=== PATIENT | female | born 1980 | race Two or more races ===

== ENCOUNTER 2020-05-03 22:44 | Emergency (ER) | payer OTHER, SELFPAY ==
[2020-05-03 22:56] VITALS: BP 127/90; BP 132/80; PULSE 61; PULSE 85; RESP 16; TEMP 36.8; O2SAT 100; O2SAT 95; BMI 25.8
--- NOTE | 2020-05-03 23:00 | ECG_ITS ---
Test Reason : WEAKNESS Blood Pressure : / mmHG Vent. Rate : 078 BPM Atrial Rate : 078 BPM P-R Int : 154 ms QRS Dur : 080 ms QT Int : 366 ms P-R-T Axes : 043 045 024 degrees QTc Int : 417 ms Normal sinus rhythm with sinus arrhythmia Nonspecfic T wave changes When compared with ECG of 19-NOV-2017 05:10, No significant change was found Referred By: Noelle Enriquez Electronically Signed By:Girma Dutta
--- NOTE | 2020-05-03 23:23 | ED.GENADULT ---
HPI - General Adult General Chief complaint: ETOH/Substance Use Stated complaint: ETOH Time Seen by Provider: 05/03/20 22:57 Source: patient Mode of arrival: EMS History of Present Illness HPI narrative: This is a 39-year-old female who was found walking on the streets and felt to be altered and was brought into the emergency department for further evaluation. Patient states that she went to court for her brother today and says that she drank alcohol and smoked some Timothy dust with marijuana and is requesting help with avoiding these substances in the future. She denies having been in prior detox programs and denies any feelings of depression or suicidal ideation. Related Data Allergies Allergy/AdvReac Type Severity Reaction Status Date / Time No Known Allergies Allergy Verified 05/03/20 22:56 [No Known Allergies*] Review of Systems Review of Systems: Pertinent positives and negatives as stated in HPI 10 point review of systems is otherwise negative. PMFSH Past Medical History Source: nursing notes reviewed Social History Social History Advance Directives: No Advance Directives Information Provided: No Physical Exam Vital Signs: Vital Signs: Last Vital Signs Temp 98.3 F 05/03/20 22:56 Pulse 88 05/04/20 01:42 Resp 15 05/04/20 01:42 BP 104/72 05/04/20 01:42 Pulse Ox 99 05/04/20 01:42 Body Mass Index 25.8 VITAL SIGNS: Reviewed. GENERAL: Well developed, well nourished, tearful. HEAD: Normocephalic/atraumatic, EYES: PERRLA, EOMI NOSE: Nares patent bilateral OROPHARYNX: no oral lesions noted, posterior pharynx clear NECK: Supple, no adenopathy LUNGS: Normal breath sounds. No adventitious sounds or accessory muscle use. SpO2<100> CARDIOVASCULAR: Regular rate and rhythm without noted murmurs ABDOMEN: Soft, non-tender, non-distended with bowel sounds. NEUROLOGIC: Alert and oriented x 4. Strength and sensation to light touch were grossly intact x 4 PSYCH: tearful, normal affect. Course Course Course Narrative: This is a 39-year-old female with history and clinical presentation consistent with substance use and requesting detox without evidence of depression or suicidal/homicidal ideation. Review of all investigations other than positivity for self endorsed PCP use. CARE team spoke with the patient directly and provided some outpatient resources as well as therapy options in the outpatient setting that patient could follow up with. Patient is requesting to be discharged home and has a safe ride as well as the resources provided by the CARE team. Medical Decision Making Lab Data Result diagrams: 05/04/20 00:33 05/04/20 00:33 Labs: Lab Results 05/04/20 05/04/20 Range/Units 00:33 00:33 WBC 11.9 H (4.8-10.8) X10*3/uL RBC 4.53 (4.20-5.50) X10*6/uL Hgb 13.6 (12.0-16.0) g/dl Hct 41.1 (37-47) % MCV 90.7 (80-98) fL MCH 30.0 (27.0-33.0) pg MCHC 33.1 (31.0-35.0) g/dl RDW 13.7 (11.0-16.0) % Plt Count 382 (160-400) X10*3/uL MPV 9.5 (9.4-12.3) fL Immature Gran % (Auto) 0.3 (0.0-0.4) % Neut % (Auto) 68.2 (45-73) % Lymph % (Auto) 26.7 (20-40) % Ashley % (Auto) 4.1 (2-11) % Eos % (Auto) 0.2 (0-4) % Baso % (Auto) 0.5 (0-2) % Lymph # (Auto) 3.2 (1.2-4.9) X10*3/uL Ashley # (Auto) 0.5 (0.1-1.2) X10*3/uL Eos # (Auto) 0.0 (0.0-0.4) X10*3/uL Baso # (Auto) 0.1 (0.0-0.2) X10*3/uL Abs Immat Gran (auto) 0.03 (0.00-0.03) X10*3/uL Absolute Neuts (auto) 8.1 (2.0-8.3) X10*3/uL Absolute Nucleated RBC 0.000 (0.0-0.012) X10*3/uL Nucleated RBC % (auto) 0.0 (0.0-0.2) /100WBC Sodium 144 (135-145) mmol/L Potassium 3.7 (3.3-5.1) mmol/L Chloride 107 (96-108) mmol/L Carbon Dioxide 24 (22-29) mmol/L Anion Gap 17 (12-20) BUN 13 (9-16) mg/dL Creatinine 0.79 (0.5-1.4) mg/dL Estim Creat Clear Calc 99.4 Estimated GFR > 60 Random Glucose 87 (60-115) mg/dL Calcium 9.4 (8.4-10.2) mg/dL Total Bilirubin 0.8 (0.0-1.0) mg/dL AST 46 H (5-31) U/L ALT 26 (0-31) U/L Alkaline Phosphatase 90 (39-117) U/L Total Protein 8.2 H (6.5-8.0) g/dL Albumin 4.8 (3.5-5.0) g/dL Discharge Plan Discharge Clinical Impression: Substance abuse Patient Disposition: Home, Self-Care Instructions: Polysubstance Abuse (ED) Additional Instructions: Please utilize the resources that you have been provided to facilitate your request for detox. Please do not hesitate to return to the emergency department should you would have feelings of depression, suicidal ideation, or medical conditions such as shortness of breath/chest pain/fevers or chills that are not resolving with [id number] Tylenol or ibuprofen. Referrals: Physician,Unknown [Primary Care Provider] - 2 days
[2020-05-04 00:40] LABS: MANUAL DIFF FLAG NO
[2020-05-04 00:46] LABS: Basophils Absolute Auto 0.1 X10*3/uL (0.0-0.2); Basophils Percent Auto 0.5 % (0-2); Eosinophils Percent Auto 0.2 % (0-4); Hematocrit 41.1 % (37-47); Hemoglobin 13.6 g/dl (12.0-16.0); Imm Gran Abs Auto 0.03 X10*3/uL (0.00-0.03); Imm Gran Pct Auto 0.3 % (0.0-0.4); Lymphocytes Absolute Auto 3.2 X10*3/uL (1.2-4.9); Lymphocytes Percent Auto 26.7 % (20-40); Mean Corpuscular HGB Conc 33.1 g/dl (31.0-35.0); Mean Corpuscular Volume 90.7 fL (80-98); Mean Platelet Volume 9.5 fL (9.4-12.3); Monocytes Absolute Auto 0.5 X10*3/uL (0.1-1.2); Monocytes Percent Auto 4.1 % (2-11); Neutrophils Absolute Auto 8.1 X10*3/uL (2.0-8.3); Neutrophils Percent Auto 68.2 % (45-73); Platelet Count 382 X10*3/uL (160-400); Red Blood Count 4.53 X10*6/uL (4.20-5.50); Red Cell Distribution Width 13.7 % (11.0-16.0); White Blood Count 11.9 X10*3/uL (4.8-10.8)
--- NOTE | 2020-05-04 01:08 | PC.NURSE ---
Pt to ED s/p use of PCP. Pt denies ETOH use and illicit substances tonight. Pt also denying SI/HI. Pt is calm, cooperative, pleasant resting in stretcher in NAD.
[2020-05-04 01:13] LABS: Alanine Aminotransferase 26 U/L (0-31); Albumin Level 4.8 g/dL (3.5-5.0); Alkaline Phosphatase 90 U/L (39-117); Anion Gap 17 (12-20); Aspartate Amino Transferase 46 U/L (5-31); Bilirubin Total 0.8 mg/dL (0.0-1.0); Blood Urea Nitrogen 13 mg/dL (9-16); Calcium 9.4 mg/dL (8.4-10.2); Carbon Dioxide 24 mmol/L (22-29); Chloride 107 mmol/L (96-108); Creatinine Clr Calc Pharmacy 99.4; Estimated Glomerular Filt Rate > 60; Glucose Random 87 mg/dL (60-115); Potassium 3.7 mmol/L (3.3-5.1); Sodium 144 mmol/L (135-145); Total Protein 8.2 g/dL (6.5-8.0)
--- NOTE | 2020-05-04 01:22 | MHC.CARE ---
Dr. Enriquez requests that CARE Team meet with pt in order to provide substance use treatment resources. CARE Team meets with pt in ED room 9. Pt is tearful and unable to articulate why she is upset. She makes intense eye contact and offers little information. CARE Team provides phone number and encourages pt to call CARE Team tomorrow to discuss resources when feeling better. CARE Team provides info for IOP, [facility] and [facility]. Unclear how well pt is comprehending information at this time. Please re-consult CARE Team when pt becomes more verbal, if needed. Intervention discussed with Dr. Enriquez.
[2020-05-04 01:42] VITALS: BP 104/72; PULSE 88; RESP 15; O2SAT 99
[2020-05-04 02:00] VITALS: BP 110/78; PULSE 81; RESP 18; O2SAT 99
== END 2020-05-04 03:29 | disposition home or self-care (01) ==
PROVIDERS: Emergency Provider Student in an Organized Health Care Education/Training Program
DX: F19.10 Other psychoactive substance abuse, uncomplicated (principal)
CPT/HCPCS: 36415; 80053; 85025; 93005; 99283; 99284

== ENCOUNTER 2020-09-12 14:24 | Emergency (ER) | payer OTHER, SELFPAY ==
[2020-09-12 14:37] VITALS: BP 121/77; BP 130/80; PULSE 78; PULSE 84; RESP 18; TEMP 36.7; O2SAT 96; O2SAT 98; BMI 25.8
[2020-09-12 14:45] VITALS: BP 139/87; PULSE 81; RESP 15; TEMP 37.2; O2SAT 98
--- NOTE | 2020-09-12 16:12 | ED_ITS ---
HPI - General Adult General Chief complaint: ETOH/Substance Use Stated complaint: LETHARGY,DIFFICULTY AMBULATING X'S 4 DAYS Time Seen by Provider: 09/12/20 16:03 Source: patient and EMS Mode of arrival: EMS Limitations: altered mental status History of Present Illness HPI narrative: Patient is brought to emergency room by EMS. Patient used Brigette does prior to arrival and alcohol. Patient initially arrives saying that she cannot feel her body. When I spoke to the patient, patient's main complaint is that she thinks she has chlamydia, denies vaginal discharge but states that her partner recently told her that he tested positive for Chlamydia, patient requesting treatment. She is unsure if she is . Related Data Allergies Allergy/AdvReac Type Severity Reaction Status Date / Time No Known Allergies Allergy Verified 05/03/20 22:56 [No Known Allergies*] Review of Systems Review of Systems: Constitutional : No Weight loss, No Fever, No Chills, No Night Sweats, No Fatigue, No Malaise ENT/Mouth : No Hearing loss, No Ear Pain, No Nasal Congestion, No Sinus Pain, No Hoarseness, No sore throat, No Rhinorrhea, No Swallowing Difficulty Eyes: No Eye Pain, No Swelling, No Redness, No Foreign Body, No Discharge, No Vision Changes Cardiovascular : No Chest Pain, No SOB, No Dyspnea on Exertion, No Orthopnea, No Edema, No Palpitations Respiratory : No Cough, No Sputum, No Wheezing, No Smoke Exposure, No Dyspnea Gastrointestinal : No Nausea, No Vomiting, No Diarrhea, No Constipation, No abdominal Pain, No Hematochezia, No Melena Genitourinary : no irregular bleeding, vaginal discharge, No Dysuria, No Urinary Frequency, No Hematuria, No Urinary Incontinence, No Urgency, No Flank Pain, No Urinary Flow Changes, No Hesitancy Musculoskeletal : No joint pain, No Myalgias, No Joint Swelling Skin : No Skin Lesions, No rash Neuro : No Weakness, No Numbness, No Paresthesias, No Loss of Consciousness, No Dizziness, No Headache Psych : No Anxiety/Panic, No Depression, No SI/HI/AH/VH, No Social Issues, Heme/Lymph: No Bruising, No Bleeding,No Lymphadenopathy Endocrine : No Polyuria, No Polydipsia, No Temperature Intolerance PMFSH Past Medical History Medical History Substance abuse Social History Social History Advance Directives: Yes Advance Directives Information Provided: Yes Advance Directives on File: No Physical Exam Vital Signs: Vital Signs: Last Vital Signs Temp 99.0 F 09/12/20 14:45 Pulse 81 09/12/20 14:45 Resp 15 09/12/20 14:45 BP 139/87 09/12/20 14:45 Pulse Ox 98 09/12/20 14:45 Body Mass Index 25.8 Appearance: Alert. Oriented X3. Crying, anxious Eyes: Pupils equal, round and reactive to light. ENT: Pharynx normal. Neck: Normal inspection. Neck supple. No lymph nodes noted. No crepitus CVS: Normal heart rate and rhythm. Pulses normal. Normal S1 and S2 Respiratory: No respiratory distress. Breath sounds normal. No Wheezing. No rales Abdomen: Soft and nontender. No rigidity. No distention. good BS x4 Skin: Skin warm and dry. . Normal skin turgor. Extremities: No lower extremity edema. Moves all extremities, No Lacerations. No Rash Neuro: Oriented X 3. Cranial nerves 2-12 grossly intact, No motor deficit. No sensory deficit. Moving all extermities. No slurred speech. Course Course Course Narrative: Patient was ambulatory. Patient received 1 dose of ceftria xone and azithromycin. Doxycycline was not given to the patient, states that she does know she would be able to keep up with her treatment for STD. I was informed by the patient's nurse that she eloped Medical Decision Making Lab Data Labs: Lab Results 09/12/20 09/12/20 09/12/20 Range/Units 16:31 16:31 16:31 Urine Color YELLOW Urine Appearance CLEAR Urine pH 6.5 (5.0-8.0) Ur Specific [place] 1.025 (1.005-1.025) Urine Protein NEG (NEG-TRACE) MG/DL Urine Glucose (UA) NEG (NEG) MG/DL Urine Ketones 5 (NEG) MG/DL Urine Blood NEG (NEG) Urine Nitrite NEG (NEG) Ur Leukocyte Esterase NEG (NEG) Urine Test NEGATIVE (NEGATIVE) Urine Opiates Screen Not Detected (Not Detect) Ur Barbiturates Screen Not Detected (Not Detect) Ur Phencyclidine Scrn POSITIVE H (Not Detect) Ur Amphetamines Screen Not Detected (Not Detect) U Benzodiazepines Scrn Not Detected (Not Detect) Urine Cocaine Screen Not Detected (Not Detect) U Marijuana (THC) Screen POSITIVE H (Not Detect) Discharge Plan Discharge Clinical Impression: Alcoholic intoxication, PCP abuse Patient Disposition: Elopement Discharge Date/Time: 09/12/20 21:14
[2020-09-12] MEDS: cefTRIAXone sodium 500 MG VIAL IM (16:31)
[2020-09-12] MEDS: Azithromycin 500 MG TABLET 1000 MG PO (16:32)
[2020-09-12 16:51] LABS: Glucose Urine UA NEG (NEG); Leukocyte Esterase Urine NEG (NEG); Nitrite Urine NEG (NEG); PH 6.5 (5.0-8.0); Specific Gravity - Urine 1.025 (1.005-1.025); Urine Blood NEG (NEG); Urine Ketones 5 MG/DL (NEG); Urine Protein NEG (NEG-TRACE)
[2020-09-12 17:02] LABS: UPreg QC Valid YES; Urine Pregnancy NEGATIVE (NEGATIVE)
[2020-09-12 17:04] LABS: Appearance Urine CLEAR; Color Urine YELLOW
[2020-09-12 17:11] LABS: Amphetamine Screen Urine Not Detected (Not Detect); Barbiturates, Urine Not Detected (Not Detect); Benzodiazepines Screen Urine Not Detected (Not Detect); Cannabinoid Screen Urine POSITIVE (Not Detect); Cocaine Screen Urine Not Detected (Not Detect); Opiate Screen Urine Not Detected (Not Detect); Phencyclidine Screen Urine POSITIVE (Not Detect)
== END 2020-09-12 21:14 | disposition left against medical advice (07) ==
PROVIDERS: Emergency Provider Emergency Medicine
DX: F10.129 Alcohol abuse with intoxication, unspecified (principal); Y90.9 Presence of alcohol in blood, level not specified; F16.10 Hallucinogen abuse, uncomplicated; Z20.2 Contact with and (suspected) exposure to infections with a predominantly sexual mode of transmission
CPT/HCPCS: 80307; 81003; 81025; 96372; 99283; 99284; J0696

== ENCOUNTER 2020-09-17 15:23 | Emergency (ER) | payer OTHER, SELFPAY ==
[2020-09-17 15:37] VITALS: BP 138/67; PULSE 78; RESP 16; TEMP 36.8; O2SAT 98; BMI 25.7
--- NOTE | 2020-09-17 15:57 | ED.OVERDOSE ---
HPI - Overdose General Chief Complaint: Overdose <Salima Godoy NP - Last Filed: 09/17/20 19:50> Stated Complaint: MARIJUANA USE <ZACK Hardy Last Filed: 09/17/20 19:50> Time Seen by Provider: 09/17/20 15:39 <Salima Godoy NP - Last Filed: 09/17/20 19:50> Source: EMS <Salima Godoy NP - Last Filed: 09/17/20 19:50> Mode of arrival: EMS <Salima Godoy NP - Last Filed: 09/17/20 19:50> Limitations: no limitations <Salima Godoy NP - Last Filed: 09/17/20 19:50> History of Present Illness HPI Narrative: 40-year-old female here after smoking marijuana. She does use PCP but did not use it today. She denies any suicidal thoughts. No physical complaints. Initially brought in for some concern for confusion. On arrival the patient is alert and oriented <ZACK Hardy Last Filed: 09/17/20 19:50> Related Data Allergies/Adverse Reactions: Allergies Allergy/AdvReac Type Severity Reaction Status Date / Time No Known Allergies Allergy Verified 05/03/20 22:56 [No Known Allergies*] <ZACK Hardy Last Filed: 09/17/20 19:50> Review of Systems Review of Systems: Yes all other systems are reviewed and are negative <ZACK Hardy Last Filed: 09/17/20 19:50> Constitutional: Constitutional: Reports no additional constitutional complaints, Denies body ache(s), Denies chills, Denies fever(s), Denies headache(s) and Denies weakness <ZACK Hardy Last Filed: 09/17/20 19:50> Eyes: Eyes: Reports no additional eye complaints and Denies change in vision <ZACK Hardy Last Filed: 09/17/20 19:50> ENT: Reports system reviewed and no additional complaints, except as documented, Denies dizziness, Denies headache(s), Denies nasal congestion, Denies nasal discharge and Denies neck pain <Salima Godoy NP - Last Filed: 09/17/20 19:50> Cardiovascular: Cardiovascular: Reports no additional cardiovascular complaints, Denies chest pain, Denies leg edema and Denies dyspnea <Salima Godoy NP - Last Filed: 09/17/20 19:50> Respiratory: Respiratory: Reports no additional respiratory complaints, Denies cough and Denies dyspnea <Salima Godoy NP - Last Filed: 09/17/20 19:50> Gastrointestinal: Gastrointestinal: Reports no additional gastrointestinal complaints, Denies abdominal pain, Denies diarrhea, Denies nausea and Denies vomiting <Salima Godoy NP - Last Filed: 09/17/20 19:50> Genitourinary: Genitourinary: Reports no additional female genitourinary complaints and Denies urinary incontinence <Salima Godoy NP - Last Filed: 09/17/20 19:50> Musculoskeletal: Musculoskeletal: Reports no additional musculoskeletal complaints, Denies back pain, Denies arthralgias, Denies joint swelling, Denies neck pain, Denies numbness and Denies tingling <Salima Godoy NP - Last Filed: 09/17/20 19:50> Integumentary/Breasts: Skin/Breast: Reports system reviewed and no additional complaints, except as docu and Denies rash <Salima Godoy NP - Last Filed: 09/17/20 19:50> Neurologic: Reports system reviewed and no additional complaints, except as documented, Denies Abnormal speech present, Denies dizziness, Denies headache(s), Denies numbness, Denies tingling and Denies weakness <Salima Godoy NP - Last Filed: 09/17/20 19:50> PMFSH Past Medical History Attestation statement: The following information was validated with the patient. <ZACK Hardy Last Filed: 09/17/20 19:50> Source: old records reviewed and nursing notes reviewed <Salima Godoy NP - Last Filed: 09/17/20 19:50> Medical History: Medical History Substance abuse <Salima Godoy NP - Last Filed: 09/17/20 19:50> Social History Social History: Social History Alcohol intake: current Substance Use Type: Marijuana Substance Use Type Other:: PCP Advance Directives: No Advance Directives Information Provided: No Patient : No <Salima Godoy NP - Last Filed: 09/17/20 19:50> Physical Exam Vital Signs: Vital Signs: Last Vital Signs Temp 98.2 F 09/17/20 15:37 Pulse 78 09/17/20 15:37 Resp 16 09/17/20 15:37 BP 138/67 09/17/20 15:37 Pulse Ox 98 09/17/20 15:37 Body Mass Index 25.7 <Salima Godoy NP - Last Filed: 09/17/20 19:50> Vital Signs: Last Vital Signs Temp 98.2 F 09/17/20 15:37 Pulse 78 09/17/20 15:37 Resp 16 09/17/20 15:37 BP 138/67 09/17/20 15:37 Pulse Ox 98 09/17/20 15:37 Body Mass Index 25.7 <Momo Sims MD - Last Filed: 10/26/20 09:00> Const: General: cooperative, healthy appearing, comfortable and no acute distress <Salima Godoy NP - Last Filed: 09/17/20 19:50> Orientation/consciousness: patient oriented x3 <Salima Godoy NP - Last Filed: 09/17/20 19:50> Limitations: no limitations <Salima Godyo NP - Last Filed: 09/17/20 19:50> HENMT: Head: Yes normal to inspection <Salima Godoy NP - Last Filed: 09/17/20 19:50> Ears: hearing grossly normal bilaterally <Salima Godoy NP - Last Filed: 09/17/20 19:50> General nose exam: Normal external nose present <Salima Godoy NP - Last Filed: 09/17/20 19:50> Face and sinus: Yes normal facial exam <Salima Godoy NP - Last Filed: 09/17/20 19:50> Mouth: Normal oral and palatal mucosa present <Salima Godoy NP - Last Filed: 09/17/20 19:50> Throat: Yes posterior oropharynx normal <Salima Godoy NP - Last Filed: 09/17/20 19:50> Eyes: General: appearance normal, both eyes and all related structures <Salima Godoy NP - Last Filed: 09/17/20 19:50> Pupils: Equal, round and reactive pupils present <Salima Godoy GOVERNMENT PROFESSOR - Last Filed: 09/17/20 19:50> Neck: Neck: Yes normal visual inspection <Salima Godoy NP - Last Filed: 09/17/20 19:50> Chest: Chest palpation & inspection: normal inspection of the chest <Salima Godoy NP - Last Filed: 09/17/20 19:50> Resp: Effort & Inspection: normal respiratory effort <Salima Godoy NP - Last Filed: 09/17/20 19:50> Auscultation: clear to auscultation bilaterally <Salima Godoy NP - Last Filed: 09/17/20 19:50> Cardio: Rate: regular rate <Salima Godoy NP - Last Filed: 09/17/20 19:50> Rhythm: regular rhythm <Salima Godoy NP - Last Filed: 09/17/20 19:50> Peripheral pulses: Peripheral pulses 2+ throughout <Salima Godoy NP - Last Filed: 09/17/20 19:50> GI: Inspection: Yes normal to inspection <Salima Godoy NP - Last Filed: 09/17/20 19:50> Palpation (GI): Soft to palpation and nontender <Salima Godoy NP - Last Filed: 09/17/20 19:50> Auscultation: normal bowel sounds <Salima Godoy NP - Last Filed: 09/17/20 19:50> Back/Spine/Pelvis: Thoracic/Lumbar Spine: thoracic and lumbar spine normal to inspection <Salima Godoy NP - Last Filed: 09/17/20 19:50> Skin: General skin exam: no rashes or lesions noted <Salima Godoy NP - Last Filed: 09/17/20 19:50> Neuro: General: patient oriented x3, no focal motor deficits and normal sensation to monofilament <Salima Godoy NP - Last Filed: 09/17/20 19:50> Cranial nerves: Yes Equal, round and reactive pupils present and Yes Midline tongue present <Salima Godoy NP - Last Filed: 09/17/20 19:50> Cognition (Neuro): normal cognition <Salima Godoy NP - Last Filed: 09/17/20 19:50> Speech: No Abnormal speech present <Salima Godoy NP - Last Filed: 09/17/20 19:50> Gait exam (Neuro): Normal gait present <Salima Godoy NP - Last Filed: 09/17/20 19:50> Motor exam (neuro): 5/5 motor strength present throughout <Salima Godoy NP - Last Filed: 09/17/20 19:50> Extrem: General: Yes normal to inspection <Salima Godoy NP - Last Filed: 09/17/20 19:50> Course Course Course Narrative: 40-year-old female here after smoking marijuana with some confusion. For me the patient is alert and oriented although requires frequent redirection. No overt neurological deficits. She does admit to smoking marijuana and PCP yesterday. History of similar presentation after soaking PCP with several ER visits for same most recently September 12 of this year. No concern for acute ingestion or trauma. No suicidal or homicidal thoughts. Will monitor for brief time -nursing informed me the patient eloped from the emergency department with a steady gait <Salima Godoy NP - Last Filed: 09/17/20 19:50> I have reviewed the chart <Momo Sims MD - Last Filed: 10/26/20 09:00> Discharge Plan Discharge Clinical Impression: Substance use <Salima Godoy NP - Last Filed: 09/17/20 19:50> Patient Disposition: Elopement <Salima Godoy NP - Last Filed: 09/17/20 19:50> Instructions: Polysubstance Abuse (ED) <Salima Godoy NP - Last Filed: 09/17/20 19:50> Discharge Date/Time: 09/17/20 18:41 <Salima Godoy NP - Last Filed: 09/17/20 19:50>
--- NOTE | 2020-09-17 16:15 | PC.NURSE ---
Patient has climbed out of foot of the bed x 2 and was walking in the hallway with a steady gate. Pt easily redirected back to bed.
--- NOTE | 2020-09-17 17:15 | PC.NURSE ---
recovery support literacy coach talking with patient
--- NOTE | 2020-09-17 17:27 | MHC.RECOVSUP ---
? Reason for consult Recovery Support o Current location: ED19H o Identified substance use concern: PCP - Support ? Intervention o Community resources provided o Harm reduction discussion ? Plan: o Patient to follow up with H after discharge ? Additional information: After Talking with Patient she Stated that she Had smoked PCP... She was confused cause she didnt know why she was here.. She said that she needs to change her environment.. I supplied Patient with the recovery center info..
--- NOTE | 2020-09-17 18:30 | PC.NURSE ---
pt is no longer in bed and is not in ER lobby. Pt has eloped
== END 2020-09-17 18:41 | disposition left against medical advice (07) ==
LOC: HO.ED 15:47
PROVIDERS: Emergency Provider Emergency Medicine
DX: F19.10 Other psychoactive substance abuse, uncomplicated (principal)
CPT/HCPCS: 99284

== ENCOUNTER 2021-05-22 20:19 | Emergency (ER) | payer OTHER, SELFPAY ==
[2021-05-22 20:23] VITALS: BP 109/74; BP 130/86; PULSE 90; RESP 16; TEMP 37; O2SAT 100; O2SAT 96; BMI 25.8
[2021-05-22 20:29] VITALS: PULSE 86; RESP 16; O2SAT 96
--- NOTE | 2021-05-22 20:30 | ED.PSYCH ---
HPI - Psych General Chief Complaint: ETOH/Substance Use Stated Complaint: PCP use Time Seen by Provider: 05/22/21 20:28 Source: patient and EMS Mode of arrival: EMS Limitations: other (intoxicated) History of Present Illness complaint: substance abuse Onset (ago): hour(s) Duration: constant History of same: Yes Relieving factors: none Exacerbating factors: drug use Context: recent drug abuse (THC and PCP use (does use both)) Associated psychiatric symptoms: depression (upset as her brother just ) Associated symptoms: denies other symptoms Treatments prior to arrival: none Related Data Allergies Allergy/AdvReac Type Severity Reaction Status Date / Time No Known Allergies Allergy Verified 05/03/20 22:56 [No Known Allergies*] Review of Systems Review of Systems: ROS unable to be obtained due to patient being intoxicated PMF Past Medical History Attestation statement: The following information was validated with the patient. Medical History Substance abuse Social History Social History (Updated 05/22/21 @ 20:59 by Diana Gomez DO) Alcohol intake: current Substance Use Type: Hallucinogens and Marijuana Advance Directives: No Advance Directives Information Provided: No Physical Exam Vital Signs: Vital Signs: Last Vital Signs Temp 98.6 F 05/22/21 20:23 Pulse 87 05/22/21 23:24 Resp 16 05/22/21 23:24 BP 105/63 05/22/21 23:24 Pulse Ox 98 05/22/21 23:24 BMI result Body Mass Index 25.8 Appearance: Alert. not answering questions but nods and did note she was upset about her brother and that she does PCP regularly. No acute distress. calm and cooperative Eyes: Pupils equal, round and reactive to light. no nystagmus 3mm ENT: Pharynx normal. Neck: Normal inspection. Neck supple. CVS: Normal heart rate and rhythm. Pulses normal. Respiratory: No respiratory distress. Breath sounds normal. Abdomen: Soft and non-tender. Skin: Skin warm and dry. Normal skin color. Normal skin turgor. Extremities: No lower extremity edema. No calf ttp Neuro: responding with nods and some words but will not answer full questions. No motor deficit. No sensory deficit. Course Course Course Narrative: patient requesting help with detox states she is not SI and cannot due this anymore and needs help Physician observation started at 1113pm. Patient placed in physician observation because the patient needed more time for assistance with detox. At the time observation was started the patient's vitals were stable, patient is alert and oriented but slightly anxious and tearful, Neuro: nonfocal, CV RRR, Lungs clear patient fully coherent alert and oriented x 3 MDM - Psych MDM Narrative Medical decision making narrative: 40 yo female here with PCP and THC use no signs of trauma no SI but is sad over the loss of her brother she is calm and cooperative, she uses PCP regularly. She called 911 as she started to feel funny on the PCP. Will observe and allow her to metabolize the drugs. Lab Data Labs: Lab Results 05/22/21 05/23/21 Range/Units 23:23 00:03 Urine Test NEGATIVE (NEGATIVE) COVID-19 ([facility]) Negative (Negative) COVID-19 Clin Com See Note Discharge Plan Discharge Clinical Impression: PCP intoxication Qualifiers: Complication of substance-induced condition: uncomplicated Qualified Code(s): F16.920 - Hallucinogen use, unspecified with intoxication, uncomplicated Patient Disposition: Still a Patient Instructions: Grief and Loss (ED), Polysubstance Abuse (ED)
--- NOTE | 2021-05-22 21:43 | MHC.RECOVSUP ---
? Reason for consult:Recovery Support o ? ? ?Current location: ED10 o ? ? ?Identified substance use concern:Heroine - Overdose - Withdrawal - Support ? Additional information:?I was able to connect with patient but she refused to talk at this time. I left community resources for her.
[2021-05-22 23:24] VITALS: BP 105/63; PULSE 87; RESP 16; O2SAT 98
[2021-05-22 23:47] LABS: COVID-19 Test Negative (Negative)
[2021-05-23 00:12] LABS: UPreg QC Valid YES; Urine Pregnancy NEGATIVE (NEGATIVE)
[2021-05-23 00:22] LABS: Amphetamine Screen Urine Not Detected (Not Detect); Barbiturates, Urine Not Detected (Not Detect); Benzodiazepines Screen Urine Not Detected (Not Detect); Cannabinoid Screen Urine POSITIVE (Not Detect); Cocaine Screen Urine Not Detected (Not Detect); Fentanyl, urine Not Detected (Not Detect); Opiate Screen Urine Not Detected (Not Detect); Phencyclidine Screen Urine POSITIVE (Not Detect)
[2021-05-23 02:16] VITALS: BP 120/85; PULSE 80; RESP 16; O2SAT 100
[2021-05-23 04:22] VITALS: BP 101/64; PULSE 80; RESP 18; O2SAT 98
[2021-05-23 06:01] VITALS: BP 120/70; PULSE 82; RESP 16; O2SAT 97
--- NOTE | 2021-05-23 08:37 | PC.NURSE ---
pt seen by Shahriar from Care Team. Pt seeking detox for PCP. Shahriar will be making calls for placement. pt alert and oriented, denies pain. will continue to monitor.
[2021-05-23 11:12] VITALS: BP 102/73; PULSE 82; RESP 15; TEMP 36.8; O2SAT 96
--- NOTE | 2021-05-23 11:49 | MHC.RECOVSUP ---
Recovery Support note: Patient is a 40 year old Turkmen speaking female who presented to [facility] ED reporting PCP use. Patient expressed interest in going to detox for PCP. This real estate underwriter met with patient to discuss substance use and treatment options. Patient report using PCP and marijuana daily and denies using any other substance including alcohol. Patient reports she would like to go to detox and has never been before. Patient referred to [facility] for review. No other detox is willing to admit a patient for PCP detox. Discussed this with patient. Patient is requesting discharge at this time. This real estate underwriter will contact patient directly to inform her of whether she is accepted to [facility] or not. Patient understands plan. Patient provided with information on community recovery supports and the contact information for this real estate underwriter. Discussed case with patient's ED provider. Plan for patient to discharge with follow-up.
[2021-05-23 12:15] LABS: CT PCR NOT DETECTED (Not Detect.); NG PCR NOT DETECTED (Not Detect.)
--- NOTE | 2021-05-23 12:32 | PC.NURSE ---
pt's brother Lucas Ferrara called and left number to call in case of emergency. [phone] or [phone]. pt aware.
[2021-05-23 12:49] VITALS: BP 111/78; PULSE 75; RESP 15; TEMP 36.8; O2SAT 96
== END 2021-05-23 12:53 | disposition home or self-care (01) ==
PROVIDERS: Emergency Provider Emergency Medicine
DX: F33.1 Major depressive disorder, recurrent, moderate (principal); F19.90 Other psychoactive substance use, unspecified, uncomplicated; Z79.899 Other long term (current) drug therapy; Z20.822 Contact with and (suspected) exposure to COVID-19
CPT/HCPCS: 80307; 81025; 87491; 87591; 87635; 99285

== ENCOUNTER 2021-12-13 13:35 | Inpatient (IN) | payer OTHER, SELFPAY ==
[2021-12-13 13:45] VITALS: BP 124/83; PULSE 115; O2SAT 95
[2021-12-13 13:48] VITALS: BP 108/70; PULSE 92; RESP 14; TEMP 36.7; O2SAT 96; BMI 36.0
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
[2021-12-13 14:59] LABS: MANUAL DIFF FLAG NO
[2021-12-13 15:03] LABS: Appearance Urine Cloudy; Color Urine Dark Yellow; Glucose Urine UA Negative (Negative); Leukocyte Esterase Urine Negative (Negative); Nitrite Urine Negative (Negative); PH 5.5 (5.0-9.0); Specific Gravity - Urine >= 1.030 (1.005-1.025); Urine Blood Negative (Negative); Urine Ketones 15 mg/dL (Negative); Urine Protein 30 (1+) mg/dL (Neg-Trace)
[2021-12-13 15:04] LABS: UPreg QC Valid YES; Urine Pregnancy NEGATIVE (NEGATIVE)
[2021-12-13 15:08] LABS: Bacteria Urine 1+ (None Seen); WBC Urine 0-5 /HPF (0-5)
[2021-12-13 15:15] LABS: Basophils Absolute Auto 0.1 X10*3/uL (0.0-0.2); Basophils Percent Auto 0.6 % (0-2); Eosinophils Absolute Auto 0.1 X10*3/uL (0.0-0.4); Eosinophils Percent Auto 0.6 % (0-4); Hematocrit 38.9 % (37.0-47.0); Hemoglobin 13.1 g/dl (12.0-16.0); Imm Gran Abs Auto 0.01 X10*3/uL (0.00-0.03); Imm Gran Pct Auto 0.1 % (0.0-0.4); Lymphocytes Absolute Auto 2.6 X10*3/uL (1.2-4.9); Lymphocytes Percent Auto 25.1 % (20-40); Mean Corpuscular HGB Conc 33.7 g/dl (31.0-35.0); Mean Corpuscular Hemoglobin 29.1 pg (27.0-33.0); Mean Corpuscular Volume 86.4 fL (80.0-98.0); Mean Platelet Volume 9.3 fL (9.4-12.3); Monocytes Absolute Auto 0.6 X10*3/uL (0.1-1.2); Monocytes Percent Auto 5.8 % (2-11); Neutrophils Percent Auto 67.8 % (45-73); Platelet Count 391 X10*3/uL (160-400); Red Cell Distribution Width 13.9 % (11.0-16.0); White Blood Count 10.4 X10*3/uL (4.8-10.8)
--- NOTE | 2021-12-13 15:16 | PC.NURSE ---
While drawing blood pt stating please don't given me heroine . She was re-oriented on the situation and did allow for blood to be obtained.
[2021-12-13 15:17] LABS: COVID-19 Test Negative (Negative); IDNOW Serial# 16C4AD1C
[2021-12-13 15:24] LABS: Amphetamine Screen Urine Not Detected (Not Detect); Barbiturates, Urine Not Detected (Not Detect); Benzodiazepines Screen Urine Not Detected (Not Detect); Cannabinoid Screen Urine POSITIVE (Not Detect); Cocaine Screen Urine Not Detected (Not Detect); Fentanyl, urine Not Detected (Not Detect); Opiate Screen Urine Not Detected (Not Detect); Phencyclidine Screen Urine POSITIVE (Not Detect)
[2021-12-13 15:25] LABS: Acetaminophen LAB < 1 mcg/mL (<30); Alanine Aminotransferase 19 U/L (0-31); Albumin Level 4.3 g/dL (3.5-5.0); Alkaline Phosphatase 79 U/L (39-117); Anion Gap 16 (12-20); Aspartate Amino Transferase 17 U/L (5-31); Bilirubin Direct 0.2 mg/dL (0.0-0.5); Bilirubin Total 0.5 mg/dL (0.0-1.0); Blood Urea Nitrogen 8 mg/dL (9-16); Calcium 9.3 mg/dL (8.4-10.2); Carbon Dioxide 23 mmol/L (22-29); Chloride 104 mmol/L (96-108); Creatinine Clr Calc Pharmacy 109.8; Estimated Glomerular Filt Rate > 60; Ethanol < 10 mg/dL; Glucose Random 97 mg/dL (60-115); Potassium 3.9 mmol/L (3.3-5.1); Salicylate < 5.0 mg/dL (15-30); Sodium 139 mmol/L (135-145); Total Protein 7.5 g/dL (6.5-8.0)
[2021-12-13 16:38] VITALS: BP 122/85; PULSE 88; RESP 22; TEMP 37.1; O2SAT 97
--- NOTE | 2021-12-13 18:58 | PC.NURSE ---
Assumed care of patient about 330pm. Patient jumpy whenever spoken to by staff. patient not answering questions appropriately. appears paranoid, yelling out random words when nurse tries to speak with her. patient currently under the blankets sleeping in room.
[2021-12-13 20:57] VITALS: PULSE 81; RESP 17; O2SAT 96
[2021-12-13] MEDS: Acetaminophen 325 MG TABLET 975 MG PO (21:21)
[2021-12-13 23:18] VITALS: PULSE 74; RESP 18; O2SAT 96
[2021-12-14] MEDS: Ibuprofen 600 MG TABLET PO (01:01)
[2021-12-14 03:07] VITALS: PULSE 69; RESP 17
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
[2021-12-14 07:27] VITALS: BP 106/54; PULSE 80; RESP 20; TEMP 36.6; O2SAT 98
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
--- NOTE | 2021-12-14 12:37 | PC.NURSE ---
spoke to katie from the care team and pt is going inpatient psych
--- NOTE | 2021-12-14 14:05 | PC.NURSE ---
Patient is in the process of having SANE kit completed. We are waiting for this process to be completed to admin her meds
[2021-12-14] MEDS: Acetaminophen 325 MG TABLET 975 MG PO (14:57)
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
[2021-12-14] MEDS: metroNIDAZOLE 500 MG TABLET PO ×2 (17:32→20:03)
[2021-12-14] MEDS: cefTRIAXone sodium 500 MG VIAL IM (17:32)
[2021-12-14] MEDS: Ondansetron ODT 4 MG TAB.RAPDIS TRANSLINGU (17:32)
[2021-12-14] MEDS: levonorgestreL 1.5 MG TABLET PO (17:33)
[2021-12-14 17:38] VITALS: BP 105/64; PULSE 85; RESP 18; O2SAT 95
[2021-12-14] MEDS: Emtricitabin/Tenofovir 200/300 TABLET 1 TAB PO (19:27)
[2021-12-14] MEDS: Raltegravir Potassium 400 MG TABLET PO (20:02)
[2021-12-15 03:38] LABS: HBc Num1 0.06 S/CO (0.00-0.79); HBsAGNum1 0.26 S/CO (0.00-0.99); HIV AB/AG Nonreactive (Nonreactive); HIV Num 1 0.07 S/CO (0.00-0.99); Hepatitis B Core Antibody Nonreactive (Nonreactive); Hepatitis B Surface Antigen Negative (Negative); ~HepC Num1 0.06 S/CO (0.00-0.79); ~Hepatitis B Surface Antibody NONREACTIVE (Nonreactive); ~Hepatitis C Antibody Nonreactive (Nonreactive)
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
[2021-12-15 05:23] LABS: Syphilis Screen Nonreactive (Nonreactive)
[2021-12-15] MEDS: Acetaminophen 325 MG TABLET 650 MG PO (05:49)
[2021-12-15] MEDS: LORazepam 1 MG TABLET PO (05:50)
[2021-12-15] MEDS: Raltegravir Potassium 400 MG TABLET PO ×2 (09:11→21:13)
[2021-12-15] MEDS: Emtricitabin/Tenofovir 200/300 TABLET 1 TAB PO (09:11)
[2021-12-15] MEDS: metroNIDAZOLE 500 MG TABLET PO ×2 (09:11→21:13)
[2021-12-15 09:52] LABS: Alanine Aminotransferase 17 U/L (0-31); Albumin Level 3.9 g/dL (3.5-5.0); Alkaline Phosphatase 71 U/L (39-117); Anion Gap 16 (12-20); Aspartate Amino Transferase 18 U/L (5-31); Bilirubin Total 0.3 mg/dL (0.0-1.0); Blood Urea Nitrogen 10 mg/dL (9-16); Calcium 9.1 mg/dL (8.4-10.2); Carbon Dioxide 24 mmol/L (22-29); Chloride 105 mmol/L (96-108); Cholesterol 114 mg/dL; Creatinine Clr Calc Pharmacy 117.4; Estimated Glomerular Filt Rate > 60; Glucose Fasting 85 mg/dL (60-99); HDL Cholesterol 40 mg/dL; LDL Cholesterol Calculated 62 mg/dl; Potassium 3.7 mmol/L (3.3-5.1); Sodium 141 mmol/L (135-145); Total Protein 6.8 g/dL (6.5-8.0); Triglycerides 64 mg/dL
[2021-12-15 10:12] LABS: Thyroid Stimulating Hormone 0.48 uIU/mL (0.32-4.0)
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
--- NOTE | 2021-12-15 15:54 | PC.NURSE ---
Pt signed a 3 day up on , 12/18. , GILLES, and UR aware.
[2021-12-15 18:00] VITALS: BP 117/78; PULSE 88; RESP 16; TEMP 36.6
[2021-12-15] MEDS: FLUoxetine HCl 10 MG CAPSULE PO (18:10)
[2021-12-15] MEDS: clonazePAM 0.5 MG TABLET PO (18:10)
[2021-12-15] MEDS: traZODone HCL 50 MG TABLET PO (21:16)
[2021-12-16 05:08] LABS: CT PCR NOT DETECTED (Not Detect.); NG PCR NOT DETECTED (Not Detect.)
[2021-12-16 07:08] VITALS: BP 106/56; PULSE 95; RESP 18; TEMP 36.8; O2SAT 98
[2021-12-16] MEDS: Emtricitabin/Tenofovir 200/300 TABLET 1 TAB PO (09:49)
[2021-12-16] MEDS: metroNIDAZOLE 500 MG TABLET PO (09:49)
[2021-12-16] MEDS: FLUoxetine HCl 10 MG CAPSULE PO (09:50)
[2021-12-16] MEDS: Raltegravir Potassium 400 MG TABLET PO (09:51)
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
== END 2021-12-16 14:30 | disposition home or self-care (01) | DRG 755 ==
LOC: HO.ED 12-14 18:11 → HO.PM5 12-14 22:06
PROVIDERS: Nurse Practitioner Family; Admitting Provider Psychiatry & Neurology Psychiatry; Emergency Provider Emergency Medicine; Visit Provider Psychiatry & Neurology Psychiatry
DX: F43.10 Post-traumatic stress disorder, unspecified (principal); T76.21XA Adult sexual abuse, suspected, initial encounter; F16.10 Hallucinogen abuse, uncomplicated; Z20.822 Contact with and (suspected) exposure to COVID-19; Z79.899 Other long term (current) drug therapy
CPT/HCPCS: 36415; 80048; 80053; 80061; 80076; 80143; 80179; 80307; 81001; 81003; 81025; 82077; 84443; 85025; 86704; 86706; 86780; 86803; 87340; 87389; 87491; 87591; 87635; 99285; J0696

== ENCOUNTER 2022-01-13 02:42 | Emergency (ER) | payer OTHER, SELFPAY ==
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
[2022-01-13 03:03] VITALS: BP 147/70; PULSE 85; RESP 16; TEMP 36.8; O2SAT 100; BMI 28.3
[2022-01-13 05:06] VITALS: BP 143/65; PULSE 94; RESP 20; O2SAT 98
[2022-01-13 06:13] VITALS: BP 143/70; PULSE 97; RESP 18; O2SAT 98
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
--- NOTE | 2022-01-13 06:50 | PC.NURSE ---
pt has her fingers natalio taped as dr puentes ordered.
== END 2022-01-13 07:14 | disposition home or self-care (01) ==
PROVIDERS: Emergency Provider Emergency Medicine Emergency Medical Services
DX: S62.605A Fracture of unspecified phalanx of left ring finger, initial encounter for closed fracture (principal); M25.512 Pain in left shoulder; M79.642 Pain in left hand; Y08.02XA Assault by strike by baseball bat, initial encounter; Y93.9 Activity, unspecified; Y92.9 Unspecified place or not applicable; Y99.9 Unspecified external cause status; Z79.899 Other long term (current) drug therapy
CPT/HCPCS: 73120; 99283; 99284

== ENCOUNTER 2022-01-18 05:33 | Emergency (ER) | payer OTHER, SELFPAY ==
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
[2022-01-18 05:37] VITALS: BP 116/72; PULSE 114; O2SAT 98
[2022-01-18 05:51] VITALS: BP 128/81; PULSE 113; RESP 16; TEMP 36.7; O2SAT 96; BMI 25.8
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
[2022-01-18 06:27] VITALS: BP 146/84; PULSE 91; RESP 17; TEMP 37; O2SAT 96
[2022-01-18] MEDS: Ibuprofen 600 MG TABLET PO (07:43)
[2022-01-18] MEDS: traMADoL HCL 50 MG TABLET PO (07:43)
== END 2022-01-18 07:46 | disposition home or self-care (01) ==
PROVIDERS: Emergency Provider Emergency Medicine
DX: S62.645A Nondisplaced fracture of proximal phalanx of left ring finger, initial encounter for closed fracture (principal); Y04.2XXA Assault by strike against or bumped into by another person, initial encounter; Y93.9 Activity, unspecified; Y92.9 Unspecified place or not applicable; Y99.9 Unspecified external cause status; Z79.899 Other long term (current) drug therapy
CPT/HCPCS: 29130; 73130; 99283; 99284

== ENCOUNTER 2022-01-20 | Outpatient (REF) | payer OTHER, SELFPAY ==
--- NOTE | ~2022-01-20 | XR_ITS ---
EXAMINATION: XR HAND, LEFT CLINICAL INFORMATION: Fracture COMPARISON: Previous x-rays from earlier this month TECHNIQUE: PA, lateral, and oblique views of the left hand. FINDINGS: There is a comminuted fracture of the base of the fourth metacarpal bone. There is question of increased dorsal angulation of the shaft of the fourth metacarpal bone with respect to the base. Fracture otherwise appears unchanged. Question nondisplaced fracture of the distal phalanx of the fifth finger. Normal joint spaces. There is soft tissue swelling adjacent to the fourth metacarpal fracture. XR/XR hand LT min 3V IMPRESSION: Comminuted fracture of the base of the fourth metacarpal bone with increased dorsal angulation. Question nondisplaced fracture of the distal phalanx of the fifth finger.
== END 2022-01-20 00:01 | disposition home or self-care (01) ==
LOC: HO.HOSX
PROVIDERS: Visit Provider Physician Assistant
DX: S62.605A Fracture of unspecified phalanx of left ring finger, initial encounter for closed fracture (principal)
CPT/HCPCS: 73130; 99202

== ENCOUNTER 2022-01-26 20:05 | Emergency (ER) | payer OTHER, SELFPAY ==
[2022-01-26 20:16] VITALS: BP 150/90; PULSE 72; O2SAT 98
== END 2022-01-26 23:34 | disposition left against medical advice (07) ==
LOC: HO.ED 21:37
PROVIDERS: Emergency Provider Emergency Medicine
DX: R46.2 Strange and inexplicable behavior (principal); F19.10 Other psychoactive substance abuse, uncomplicated

== ENCOUNTER → 2022-01-29 06:31 | Day surgery (SDC) | payer OTHER, SELFPAY ==
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
--- NOTE | 2022-01-26 09:19 | PC.NURSE ---
Spoke with patient by phone as patient stated I think I ate I am confused. Questioned patient about NPO status, train of thought erratic & confused. Initial history by patient I ate last night but I was supposed to be starved. When asked what time, patient stated 10 RN assured eating at 10pm was allowed, it was after midnight that would have been a problem. Patient then stated but I ate and I drank Again questioned on exact timing/what she had exactly. Per patient, water all day and a coffee at 3 am . Importance of knowing whether or not there was cream or sugar in the coffee and if there was any solid food involved was stressed to the patient due to the risk of anesthesia if there was food in the stomach. Patient stated it was a starbucks from off the shelf at the gas station. RN reminded patient she also needed to provide urine for drug screen prior to surgery & asked if she took anything recently that would cause a positive result. Per patient Yes I had marijuana and THC last night. Dr Barth notified of NPO status & potential for utox - he spoke with patient by phone & decided to evaluate at bedside upon arrival.
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
[2022-01-29 07:21] VITALS: BMI 23.6
[2022-01-29 07:26] VITALS: BP 121/65; PULSE 98; RESP 18; TEMP 36.6; O2SAT 99
[2022-01-29 07:37] LABS: UPreg QC Valid YES; Urine Pregnancy NEGATIVE (NEGATIVE)
[2022-01-29 07:44] LABS: COVID-19 Test Negative (Negative)
[2022-01-29 07:50] LABS: Amphetamine Screen Urine Not Detected (Not Detect); Barbiturates, Urine Not Detected (Not Detect); Benzodiazepines Screen Urine Not Detected (Not Detect); Cannabinoid Screen Urine POSITIVE (Not Detect); Cocaine Screen Urine Not Detected (Not Detect); Fentanyl, urine Not Detected (Not Detect); Opiate Screen Urine Not Detected (Not Detect); Phencyclidine Screen Urine POSITIVE (Not Detect)
--- NOTE | 2022-01-29 08:55 | PC.NURSE ---
urine + pcp + marijuana. Dr. Miller & Dr. Barth & Dr. Smith consulted and spoke to pt. case cancelled. pt agreeable to plan but tearful
--- NOTE | 2022-01-29 09:06 | PC.NURSE ---
plan for re-splint
--- NOTE | 2022-01-29 09:09 | PC.NURSE ---
supplies at bedside per dr. dong request for splint . pt dressed & waiting at this x
--- NOTE | 2022-01-29 09:26 | PC.NURSE ---
dr dong & tech splinting pt. d/c instructions given by
--- NOTE | 2022-01-29 09:38 | PM.PRCOR ---
Brief Operative Note Date of procedure: 01/29/22 Pre-op diagnosis: left ring finger proximal phalanx base fracture Procedure: S: the patient was scheduled again today for operative CRPP versus ORIF of her left ring finger proximal phalanx base fracture. She canceled last week because she was high and 8 before surgery. Today she was seen in preop hold but tested positive for PCP. O: While she was very reluctant to have me touch her hand or her finger and would pull her hand away even with light touch of her skin at times, I was eventually able to evaluate her hand. The ring finger is reasonably aligned in extension. There is no overlap , or even angulation in this plane. With encouragement I was able to get her to bring her fingers closed towards a fist. I saw no evidence of malrotation. I was actually able to palpate the fracture site and it did not actually appear to be very tender at this point. Radiographs taken last visit show a left ring finger proximal phalanx base fracture with some apex volar angulation. These were reviewed by me today. Assessment and plan: 1. Left ring finger proximal phalanx base fracture surgery again today is being canceled, this time because she is positive for PCP. This was done after discussion with Ravinder Whittaker of anesthesia. It was felt that the risks of anesthesia with recent use of PCP was quite high. Therefore her surgery was canceled for today. I educated her about this condition. I let her know that the fracture appears to be healing in a satisfactory position because of the direction of the angulation. I placed her in an ulnar gutter splint. We will continue to manage this non operatively with fracture care. She will have a follow-up in 2 weeks with new x-rays.
--- NOTE | 2022-01-29 09:42 | PC.NURSE ---
[id number]. pt discharged, no iv ever inserted. not tearful, will f/u with dr. dong in 2 weeks
== END ==
PROVIDERS: Nurse Practitioner; Visit Provider Orthopaedic Surgery
DX: S62.615A Displaced fracture of proximal phalanx of left ring finger, initial encounter for closed fracture (principal); Z53.8 Procedure and treatment not carried out for other reasons; R82.5 Elevated urine levels of drugs, medicaments and biological substances; Z20.822 Contact with and (suspected) exposure to COVID-19
CPT/HCPCS: 80307; 81025; 87635

== ENCOUNTER 2022-02-09 10:46 | Outpatient (REF) | payer OTHER, SELFPAY | END 2022-02-09 10:47 | disposition home or self-care (01) | LOC: HO.HOSX 10:46 | PROVIDERS: Visit Provider Orthopaedic Surgery | DX: Z13.89 Encounter for screening for other disorder (principal) ==

== ENCOUNTER 2022-03-10 05:50 | Emergency (ER) | payer OTHER, SELFPAY ==
[2022-03-10 05:59] VITALS: BP 107/69; BP 120/70; PULSE 72; PULSE 86; RESP 16; TEMP 36.7; O2SAT 100; BMI 30.8
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
--- NOTE | 2022-03-10 06:58 | ED.GENADULT ---
HPI - General Adult General Chief complaint: Psychiatric Symptoms Stated complaint: anxiety/si? Time Seen by Provider: 03/10/22 06:42 Source: patient History of Present Illness HPI narrative: 41-year-old female presents to the emergency department today by ambulance. The patient was at home sleeping when her brother and his girlfriend came into her room. The patient states she was startled from sleep, and yelled. The patient states her brother then called 911 and accused her of being suicidal. The patient states she is not suicidal, nor has she ever been. 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 The patient has no other complaints at this time Onset (ago): minute(s) Related Data Previous Rx's Medication Instructions Recorded doxycycline hyclate 100 mg tablet 100 mg PO BID 5 days #9 tabs 12/16/21 emtricitabine 200 mg-tenofovir 1 tab PO DAILY 28 days #28 tabs 12/16/21 disoproxil fumarate 300 mg tablet (Truvada) fluoxetine 10 mg capsule 10 mg PO DAILY 30 days #30 caps 12/16/21 metronidazole 500 mg tablet 500 mg PO BID 5 days #9 tabs 12/16/21 raltegravir 400 mg tablet 400 mg PO BID 28 days #56 tabs 12/16/21 (Isentress) trazodone 50 mg tablet 50 mg PO BEDTIME PRN Insomnia 30 12/16/21 days #30 tabs ibuprofen 400 mg tablet 400 mg PO Q6H PRN pain #20 tabs 01/13/22 Allergies Allergy/AdvReac Type Severity Reaction Status Date / Time No Known Allergies Allergy Verified 01/20/22 14:59 [No Known Allergies*] Review of Systems Review of Systems: Constitutional:??J Constitutional: De nies chills, Denie s fatigue and head ache(s) ENT:?? No nosebleed, no s ore throat Cardiovascular:??J Cardiovascular: De nies chest pain an d Denies dyspnea Respiratory:?? Respiratory: Denie s cough and Denies wheezing Neurologic: Denies Abnormal speech present [facility] Past Medical History Medical History PTSD (post-traumatic stress disorder) Substance abuse Social History Social History (Updated 01/20/22 @ 14:54 by AUSTEN Solorzano Household Members: Other Household Members Other:: mother Housing: House Do you presently have visiting nurse or other home services: No Alcohol intake: current Alcohol intake frequency: a few times a month Patient Tobacco Use Status: Current everyday Tobacco user Tobacco use type: Cigarette Cigarettes Per Day: 7 Second Hand Smoke Exposure: No Substance Use Type: Hallucinogens and Marijuana Advance Directives: No Advance Directives Information Provided: No service: No 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, 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 Sexual orientation: Straight/Heterosexual Physical Exam ED Vital Signs: Vital Signs - 24 hr 03/10/22 05:59 Temperature 98.1 F Pulse Rate 86 Respiratory Rate 16 Blood Pressure 107/69 Pulse Oximetry 100 Oxygen Delivery Method Room Air BMI result Body Mass Index 30.8 Vital signs reviewed and are normal Const General: cooperative, healthy appearing, comfortable and no acute distress Orientation/consciousness: patient oriented x3 HENMT Head: Yes normal to inspection, Yes normocephalic and Yes atraumatic Ears: external ears normal General nose exam: Normal external nose present Face and sinus: Yes normal facial exam Eyes Conjunctivae: conjunctivae normal Sclerae: sclerae normal Neck Neck: Yes normal visual inspection and Yes full ROM Resp Effort & Inspection: normal respiratory effort and no cough Cardio Rate: regular rate Rhythm: regular rhythm Skin General skin exam: no rashes or lesions noted Neuro General: patient oriented x3 Cranial nerves: Yes CN's II-XII intact bilaterally Cognition (Neuro): normal cognition Speech: No Abnormal speech present Gait exam (Neuro): Normal gait present Psych Appearance: grossly normal and well kempt Mental Status: mental status grossly normal Speech and movement: Normal speech and movement present and Clear speech present Affect: normal affect Attitude: cooperative Thought process: Normal thought process present Thought content: Normal thought content present, suicidality, no homicidality and no delusions Insight: Good insight present (Psych) Judgement: Good judgement present (Psych) Medical Decision Making Medical Decision Making MDM Narrative: 41-year-old female presented by EMS for alleged SI. The patient is not suicidal, not homicidal. The patient states that she needs to go to school today. She will be discharged at this time to follow-up as needed. Discharge Plan Discharge Clinical Impression: Acute reaction to situational stress Patient Disposition: Home, Self-Care Instructions: Stress (ED) Prescriptions: No Action ibuprofen 400 mg tablet 400 mg PO Q6H PRN (Reason: pain) Qty: 20 0RF doxycycline hyclate 100 mg Tablet 100 mg PO BID 5 Days Qty: 9 0RF metronidazole 500 mg Tablet 500 mg PO BID 5 Days Qty: 9 0RF Isentress 400 mg Tablet 400 mg PO BID 28 Days Qty: 56 0RF emtricitabine-tenofovir (TDF) [Truvada] 200-300 mg Tablet 1 tab PO DAILY 28 Days Qty: 28 0RF fluoxetine 10 mg Capsule 10 mg PO DAILY 30 Days Qty: 30 0RF trazodone 50 mg Tablet 50 mg PO BEDTIME PRN (Reason: Insomnia) 30 Days Qty: 30 0RF
== END 2022-03-10 07:10 | disposition home or self-care (01) ==
PROVIDERS: Emergency Provider Emergency Medicine
DX: F41.1 Generalized anxiety disorder (principal); R45.851 Suicidal ideations; F43.9 Reaction to severe stress, unspecified; F17.210 Nicotine dependence, cigarettes, uncomplicated; Z79.899 Other long term (current) drug therapy; Z71.6 Tobacco abuse counseling
CPT/HCPCS: 99282; 99283

== ENCOUNTER 2022-05-31 01:55 | Emergency (ER) | payer OTHER, SELFPAY ==
[2022-05-31 03:29] VITALS: BP 142/90; PULSE 109; RESP 16; TEMP 36.7; O2SAT 99; BMI 25.8
--- NOTE | 2022-05-31 04:46 | ED_ITS ---
HPI - Female Genitourinary General Chief complaint: Urogenital-Female Stated complaint: gen med Time Seen by Provider: 05/31/22 04:39 Source: patient Mode of arrival: ambulatory Limitations: no limitations History of Present Illness HPI Narrative: Patient comes to emergency room complaining of vaginal discharge for 2 weeks. Patient states that she has found out that her boyfriend has been cheating on her and she likely has gonorrhea as her sexual partner does. Patient asking to be treated empirically. Related Data Previous Rx's Medication Instructions Recorded doxycycline hyclate 100 mg tablet 100 mg PO BID 5 days #9 tabs 12/16/21 emtricitabine 200 mg-tenofovir 1 tab PO DAILY 28 days #28 tabs 12/16/21 disoproxil fumarate 300 mg tablet (Truvada) fluoxetine 10 mg capsule 10 mg PO DAILY 30 days #30 caps 12/16/21 metronidazole 500 mg tablet 500 mg PO BID 5 days #9 tabs 12/16/21 raltegravir 400 mg tablet 400 mg PO BID 28 days #56 tabs 12/16/21 (Isentre) trazodone 50 mg tablet 50 mg PO BEDTIME PRN Insomnia 30 12/16/21 days #30 tabs ibuprofen 400 mg tablet 400 mg PO Q6H PRN pain #20 tabs 01/13/22 doxycycline monohydrate 100 mg 100 mg PO BID #14 caps 05/31/22 capsule Allergies Allergy/AdvReac Type Severity Reaction Status Date / Time No Known Allergies Allergy Verified 01/20/22 14:59 [No Known Allergies*] Review of Systems Review of Systems: Constitutional : No Weight loss, No Fever, No Chills, No Night Sweats, No Fatigue, No Malaise ENT/Mouth : No Hearing loss, No Ear Pain, No Nasal Congestion, No Sinus Pain, No Hoarseness, No sore throat, No Rhinorrhea, No Swallowing Difficulty Eyes: No Eye Pain, No Swelling, No Redness, No Foreign Body, No Discharge, No Vision Changes Cardiovascular : No Chest Pain, No SOB, No Dyspnea on Exertion, No Orthopnea, No Edema, No Palpitations Respiratory : No Cough, No Sputum, No Wheezing, No Smoke Exposure, No Dyspnea Gastrointestinal : No Nausea, No Vomiting, No Diarrhea, No Constipation, No abdominal Pain, No Hematochezia, No Melena Genitourinary : Complaining of vaginal discharge, No Dysuria, No Urinary Frequency, No Hematuria, No Urinary Incontinence, No Urgency, No Flank Pain, No Urinary Flow Changes, No Hesitancy Musculoskeletal : No joint pain, No Myalgias, No Joint Swelling Skin : No Skin Lesions, No rash Neuro : No Weakness, No Numbness, No Paresthesias, No Loss of Consciousness, No Dizziness, No Headache Psych : No Anxiety/Panic, No Depression, No SI/HI/AH/VH, No Social Issues, Heme/Lymph: No Bruising, No Bleeding,No Lymphadenopathy Endocrine : No Polyuria, No Polydipsia, No Temperature Intolerance [facility] Past Medical History Medical History PTSD (post-traumatic stress disorder) Substance abuse Social History Social History (Updated 01/20/22 @ 14:54 by Carin Esparza Mikayla) Household Members: Other Household Members Other:: mother Housing: House Do you presently have visiting nurse or other home services: No Alcohol intake: current Alcohol intake frequency: a few times a month Patient Tobacco Use Status: Current everyday Tobacco user Tobacco use type: Cigarette Cigarettes Per Day: 7 Second Hand Smoke Exposure: No Substance Use Type: Hallucinogens and Marijuana Advance Directives: No service: No 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 Oriented X3. No acute distress. Eyes: Pupils equal, round and reactive to light. ENT: Pharynx normal. Neck: Normal inspection. Neck supple. No lymph nodes noted. No crepitus CVS: Normal heart rate and rhythm. Pulses normal. Normal S1 and S2 Respiratory: No respiratory distress. Breath sounds normal. No Wheezing. No rales Abdomen: Soft and nontender. No rigidity. No distention. : Patient declined Skin: Skin warm and dry. Normal skin color. Normal skin turgor. Extremities: No lower extremity edema. No Lacerations. No Rash Neuro: Oriented X 3. No motor deficit. No sensory deficit. Moving all extremities. No slurred speech. CN 2 through 12 grossly intact Psych: calm, cooperative, normal affect Medical Decision Making Medical Decision Making MDM Narrative: -urine has been obtained -patient being treated empirically with ceftriaxone and doxycycline Differential Diagnosis Differential Diagnoses: The differential diagnosis associated with the presentation includes (Gonorrhea, chlamydia) Discharge Plan Discharge Clinical Impression: Exposure to STD Patient Disposition: Home, Self-Care Instructions: Sexually Transmitted Diseases (ED) Additional Instructions: Please follow-up with your primary care physician tomorrow. If you have any worsening or new symptoms, please return to the emergency room or call 911 Prescriptions: New doxycycline monohydrate 100 mg capsule 100 mg PO BID Qty: 14 0RF No Action ibuprofen 400 mg tablet 400 mg PO Q6H PRN (Reason: pain) Qty: 20 0RF doxycycline hyclate 100 mg Tablet 100 mg PO BID 5 Days Qty: 9 0RF metronidazole 500 mg Tablet 500 mg PO BID 5 Days Qty: 9 0RF Isentress 400 mg Tablet 400 mg PO BID 28 Days Qty: 56 0RF emtricitabine-tenofovir (TDF) [Truvada] 200-300 mg Tablet 1 tab PO DAILY 28 Days Qty: 28 0RF fluoxetine 10 mg Capsule 10 mg PO DAILY 30 Days Qty: 30 0RF trazodone 50 mg Tablet 50 mg PO BEDTIME PRN (Reason: Insomnia) 30 Days Qty: 30 0RF
[2022-05-31] MEDS: Doxycycline Monohydrate 100 MG CAPSULE PO (05:02)
[2022-05-31] MEDS: cefTRIAXone sodium 500 MG VIAL IM (05:03)
[2022-05-31 05:10] VITALS: BP 136/94; PULSE 93; RESP 12; TEMP 36.7; O2SAT 97
--- NOTE | 2022-05-31 05:12 | PC.NURSE ---
Pt aox3. Discharge instructions reviewed with pt. Pt verbalizes understanding. Pt is ambulatory with a steady gate at discharge.
[2022-05-31 09:30] LABS: CT PCR NOT DETECTED (Not Detect.); NG PCR NOT DETECTED (Not Detect.)
== END 2022-05-31 05:14 | disposition home or self-care (01) ==
PROVIDERS: Emergency Provider Emergency Medicine
DX: N89.8 Other specified noninflammatory disorders of vagina (principal); Z20.2 Contact with and (suspected) exposure to infections with a predominantly sexual mode of transmission; Z79.899 Other long term (current) drug therapy; F17.210 Nicotine dependence, cigarettes, uncomplicated; Z71.6 Tobacco abuse counseling
CPT/HCPCS: 0353U; 96372; 99283; 99284; J0696

== ENCOUNTER 2022-06-07 16:28 | Emergency (ER) | payer OTHER, SELFPAY ==
--- NOTE | ~2022-06-07 | CT_ITS ---
CT head/brain wo IV con CLINICAL INFORMATION: Reason for Exam fall, face trauma COMPARISON: No prior CT scan available for comparison. TECHNIQUE: Department standard protocol. This CT examination was performed using dose optimization techniques as appropriate, variously including the following: *Automated exposure control *Adjustment of mA and/or kV according to patient size (this includes techniques or standardized protocols for targeted exams where dose is matched to indication/reason for exam; i.e. extremities or head) *Use of iterative reconstruction technique DLP: mGy-cm FINDINGS: CEREBRAL HEMISPHERES: There is no evidence of intra-axial or extra-axial mass, hemorrhage or acute infarct. BRAIN PARENCHYMA: Normal james-white matter differentiation. SUBDURAL SPACE: No bleed. BASAL GANGLIA AND PINEAL GLAND: Unremarkable VENTRICLES: Symmetric and normal in size. CEREBELLUM AND BRAINSTEM: No space-occupying mass, hemorrhage or acute infarct. CEREBELLOPONTINE ANGLES: No lesion found. ORBITS: No intraorbital mass. VESSELS: Unremarkable SKULL BASE: Unremarkable INCLUDED SINUSES AT SKULL BASE: Clear SKULL AND SKIN: No fracture or bone lesion found. CT/CT head/brain wo IV con IMPRESSION: No CT evidence of intracranial space-occupying mass, bleed or infarct. Normal CT scan does not rule out the possibility of hyperacute infarct in the first 12 hours. If patient symptoms persist may consider correlation with MRI, which is more sensitive for early acute infarct.
--- NOTE | ~2022-06-07 | CT_ITS ---
EXAMINATION: CT CERVICAL SPINE WITHOUT CONTRAST CLINICAL INFORMATION: Fall, trauma. COMPARISON: CT cervical spine 07/26/2011. TECHNIQUE: Contiguous axial imaging was performed of the cervical spine without intravenous administration of contrast. Coronal and sagittal reformats were obtained at the acquisition workstation. This CT examination was performed using dose optimization techniques as appropriate, variously including the following: *Automated exposure control *Adjustment of mA and/or kV according to patient size (this includes techniques or standardized protocols for targeted exams where dose is matched to indication/reason for exam; i.e. extremities or head) *Use of iterative reconstruction technique DLP: 399 mGy-cm FINDINGS: The atlantooccipital and atlantoaxial articulations remain well aligned. Straightening of the normal cervical lordosis. Otherwise, there is anatomic alignment of the vertebral bodies and posterior elements. No evidence of acute fracture or subluxation. The vertebral body heights and disc spaces are maintained. There is no prevertebral soft tissue swelling. The thyroid gland and remaining cervical soft tissues are normal in appearance. The lung apices demonstrate no abnormalities. CT/CT cervical spine wo IV con IMPRESSION: No acute cervical abnormalities.
--- NOTE | ~2022-06-07 | CT_ITS ---
EXAMINATION: CT FACIAL BONES CLINICAL INFORMATION: Facial trauma COMPARISON: None TECHNIQUE: This CT examination was performed using dose optimization techniques as appropriate, variously including the following: *Automated exposure control *Adjustment of mA and/or kV according to patient size (this includes techniques or standardized protocols for targeted exams where dose is matched to indication/reason for exam; i.e. extremities or head) *Use of iterative reconstruction technique FINDINGS : SKULL BASE: Included structures at skull base are normal. BONES: Skull base, orbital bones, nasal bones, maxillary bones, mandibles, zygomatic arches, and included cervical vertebrae are normal. ORBITS: Globes are symmetric. Orbital structures are normal. SALIVARY GLANDS: Unremarkable SINUSES: Mild mucosal thickening of the linings of maxillary sinuses has occluded the ostiomeatal units on both sides. The sphenoidal air cells, ethmoidal air cells and frontal air cells are clear. Mastoid air cells are clear. CT/CT facial bones wo IV con IMPRESSION: * No CT evidence of facial bone fractures. * Mild mucosal thickening of the linings of the maxillary sinuses has occluded the ostiomeatal units on both sides.
--- NOTE | 2022-06-07 16:35 | ED_ITS ---
HPI - Fall General Chief Complaint: Fall Stated Complaint: fall Time Seen by Provider: 06/07/22 16:35 Source: patient and EMS Mode of arrival: EMS Limitations: no limitations History of Present Illness HPI Narrative: 41-year-old female presents via EMS for injury sustained from a fall. EMS reports that she was smoking marijuana laced with PCP and she fell while walking. MD complaint: fall Onset (ago): hour(s) (Within the hour of arrival) Fall from: standing Fall witnessed: yes, by bystander Place fall occurred: street Loss of consciousness: none Prolonged down time: no Symptoms prior to fall: other (Intoxicated) Context: tripped/slipped Location of injury: face Severity: moderate Severity scale (1-10): 5 Quality: aching Associated symptoms (after fall): headache Related Data Previous Rx's Medication Instructions Recorded doxycycline hyclate 100 mg tablet 100 mg PO BID 5 days #9 tabs 12/16/21 emtricitabine 200 mg-tenofovir 1 tab PO DAILY 28 days #28 tabs 12/16/21 disoproxil fumarate 300 mg tablet (Truvada) fluoxetine 10 mg capsule 10 mg PO DAILY 30 days #30 caps 12/16/21 metronidazole 500 mg tablet 500 mg PO BID 5 days #9 tabs 12/16/21 raltegravir 400 mg tablet 400 mg PO BID 28 days #56 tabs 12/16/21 (Isentre) trazodone 50 mg tablet 50 mg PO BEDTIME PRN Insomnia 30 12/16/21 days #30 tabs ibuprofen 400 mg tablet 400 mg PO Q6H PRN pain #20 tabs 01/13/22 doxycycline monohydrate 100 mg 100 mg PO BID #14 caps 05/31/22 capsule Allergies Allergy/AdvReac Type Severity Reaction Status Date / Time No Known Allergies Allergy Verified 01/20/22 14:59 [No Known Allergies*] Review of Systems Review of Systems: Constitutional: No Fever, No Chills ENT/Mouth: Abrasions to upper and lower lip, No Ear Pain, No Hoarseness, No sore throat Eyes: No Eye Pain, No Swelling Cardiovascular: No Chest Pain, No SOB Respiratory: No Cough, No Dyspnea Gastrointestinal: No Nausea, No Vomiting, No Diarrhea, No abdominal Pain Genitourinary: No Dysuria, No Hematuria Musculoskeletal: positive neck pain, No Myalgias, No Joint Swelling Skin: No Skin lacerations, No rash Neuro: No Weakness, No Numbness, No Paresthesias, No Loss of Consciousness, No Dizziness, pop Headache Psych: Positive PCP intoxication, No Anxiety/Panic, No Depression Yes all other systems are reviewed and are negative [facility] Past Medical History Attestation statement: The following information was validated with the patient. Source: old records reviewed Medical History PTSD (post-traumatic stress disorder) Substance abuse Social History Social History Household Members: Other Household Members Other:: mother Housing: House Do you presently have visiting nurse or other home services: No Alcohol intake: current Alcohol intake frequency: a few times a month Patient Tobacco Use Status: Current everyday Tobacco user Tobacco use type: Cigarette Cigarettes Per Day: 7 Smoked in Last 30 Days: Yes Second Hand Smoke Exposure: No Use of substances other than those prescribed or required for medical reasons: Yes Substance Use Type: Marijuana and Other Substance Use Type Other:: PCP Substance Use Frequency: Daily Last Used Substance: Just Prior to Admission Any prior treatment program specific to substance use: No Advance Directives: No Advance Directives Information Provided: No service: No 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 Oriented X3. Moderate distress. Eyes: Pupils equal, round and reactive to light. EOMI. ENT: Pharynx normal. Abrasions to the upper and lower lip. No lacerations. Swelling noted. Tooth number 25 broken, chronic. Neck: Normal inspection. Neck supple. No vertebral tenderness or step-offs. CVS: Normal heart rate and rhythm. Pulses normal. Respiratory: No respiratory distress. Breath sounds normal. Abdomen: Soft and nontender. Skin: Skin warm and dry. Normal skin color. Normal skin turgor. Extremities: No lower extremity edema. Moves all extremities against resistance. Ambulatory with a steady gait. Neuro: No motor deficit. No sensory deficit. Cranial nerves Two through 12 intact. Course Course Course Narrative: 41-year-old female presents via EMS for evaluation for injuries sustained from a fall. Patient stated that she was smoking marijuana laced with PCP, and while she was walking down the street, ?could not feel her legs? and tripped and fell landing on her face. She was able to get up and walk immediately after the fall, and was able to walk to the stretcher when EMS arrived. patient knowingly smoked marijuana with PCP. She has abrasions to her upper lip and lower lip. Some swelling noted to the lower lip. She reports to have a chronically fractured lower front tooth. She is complaining of a headache and facial pain. She states that she looks like a ?chalupa?. Patient declined detox. Patient neurovascularly intact, no septal hematoma, no vertebral tenderness or nuchal rigidity. Full range of motion to all extremities. Able to lift all of her legs as this CIGAR HEAD PIERCER and RN removed her boots. Will assess gait after CT scan of head, facial bones and cervical spine. Will update Tdap vaccine today CT scans negative for acute findings requiring emergent intervention. Wounds cleaned with saline. Gait is balanced and coordinated. Patient will be discharged with concussion protocol. Patient verbalized understanding of and agrees to plan of care discharge home. Verbalized understanding of signs symptoms indicating need for emergent intervention. Medications Administered Discontinued Medications Generic Name Dose Route Start Last Admin Trade Name Freq PRN Reason Stop Dose Admin Diphtheria/Tetanus/Acell Pertussis 0.5 ml 06/07/22 16:40 06/07/22 17:25 Diphth,Pertus(Acell),Tet Adult 0.5 Ml Syringe IM 06/07/22 16:41 0.5 ml .ONCE ONE Administration Medical Decision Making Differential Diagnosis Differential Diagnoses: The differential diagnosis associated with the presentation includes Concussion, subdural, facial bone fracture, abrasion, tooth fracture, cervical spine fracture Independent Interpretation I performed an independent interpretation of an: CT Scan Radiology Impression Discussion of test interpretation with radiology: I have reviewed the radiologist's reading. Radiologist Impression: FINDINGS: ? CEREBRAL HEMISPHERES: There is no evidence of intra-axial or extra-axial mass, hemorrhage or acute infarct. BRAIN PARENCHYMA: Normal james-white matter differentiation. SUBDURAL SPACE: No bleed. BASAL GANGLIA AND PINEAL GLAND: Unremarkable VENTRICLES: Symmetric and normal in size. CEREBELLUM AND BRAINSTEM: No space-occupying mass, hemorrhage or acute infarct. CEREBELLOPONTINE ANGLES: No lesion found. ORBITS: No intraorbital mass. VESSELS: Unremarkable SKULL BASE: Unremarkable INCLUDED SINUSES AT SKULL BASE: Clear SKULL AND SKIN: No fracture or bone lesion found. CT/CT head/brain wo IV con IMPRESSION: No CT evidence of intracranial space-occupying mass, bleed or infarct. ? Normal CT scan does not rule out the possibility of hyperacute infarct in the first 12 hours. If patient symptoms persist may consider correlation with MRI, which is more sensitive for early acute infarct. EXAMINATION: CT FACIAL BONES CLINICAL INFORMATION: Facial trauma COMPARISON: None TECHNIQUE: This CT examination was performed using dose optimization techniques as appropriate, variously including the following: *Automated exposure control *Adjustment of mA and/or kV according to patient size (this includes techniques or standardized protocols for targeted exams where dose is matched to indication/reason for exam; i.e. extremities or head) *Use of iterative reconstruction technique FINDINGS : SKULL BASE: Included structures at skull base are normal. BONES: Skull base, orbital bones, nasal bones, maxillary bones, mandibles, zygomatic arches, and included cervical vertebrae are normal. ORBITS: Globes are symmetric. Orbital structures are normal. SALIVARY GLANDS: Unremarkable SINUSES: Mild mucosal thickening of the linings of maxillary sinuses has occluded the ostiomeatal units on both sides. The sphenoidal air cells, ethmoidal air cells and frontal air cells are clear. Mastoid air cells are clear. CT/CT facial bones wo IV con IMPRESSION: ? *? No CT evidence of facial bone fractures. ? *? Mild mucosal thickening of the linings of the maxillary sinuses has occluded the ostiomeatal units on both sides. ? FINDINGS: The atlantooccipital and atlantoaxial articulations remain well aligned. Straightening of the normal cervical lordosis. Otherwise, there is anatomic alignment of the vertebral bodies and posterior elements. No evidence of acute fracture or subluxation. The vertebral body heights and disc spaces are maintained. There is no prevertebral soft tissue swelling. The thyroid gland and remaining cervical soft tissues are normal in appearance. The lung apices demonstrate no abnormalities. CT/CT cervical spine wo IV con IMPRESSION: No acute cervical abnormalities. External Record Review External record reviewed: Outpatient record and Prior outpatient labs Social Determinants Patient?s care significantly limited by Social Determinants of Health including: Other Social Determinant of Health Discharge Plan Discharge Clinical Impression: Concussion, Abrasion of lip, PCP (phencyclidine) abuse Patient Disposition: Home, Self-Care Instructions: Concussion (ED), Abrasion (ED), Polysubstance Abuse (ED), Post Concussion Syndrome (ED) Additional Instructions: Consider detox. Your evaluated for injuries sustained from a fall. CT scan of head, facial bones, and cervical spine negative for acute findings requiring emergent intervention. Her symptoms are consistent with a concussion. Please follow-up post concussive protocol. You must follow-up with the primary care physician closely. We updated your Tdap vaccine today. Alternate Tylenol 650 mg every 6 hours and Motrin 600 mg every 6 hours as needed for pain and fever management. Consider taking these medications 3 hours apart so you have pain and fever management every 3 hours. Write down what time you take these medications to prevent accidental overdose. Motrin is the same medication as Advil and ibuprofen. Tylenol is the same medication as acetaminophen. Thank you for choosing this emergency department for evaluation. Please follow-up with primary care physician as needed. Return to the emergency department for any new, concerning, or worsening symptoms. Prescriptions: No Action ibuprofen 400 mg tablet 400 mg PO Q6H PRN (Reason: pain) Qty: 20 0RF doxycycline monohydrate 100 mg capsule 100 mg PO BID Qty: 14 0RF doxycycline hyclate 100 mg Tablet 100 mg PO BID 5 Days Qty: 9 0RF metronidazole 500 mg Tablet 500 mg PO BID 5 Days Qty: 9 0RF Isentress 400 mg Tablet 400 mg PO BID 28 Days Qty: 56 0RF emtricitabine-tenofovir (TDF) [Truvada] 200-300 mg Tablet 1 tab PO DAILY 28 Days Qty: 28 0RF fluoxetine 10 mg Capsule 10 mg PO DAILY 30 Days Qty: 30 0RF trazodone 50 mg Tablet 50 mg PO BEDTIME PRN (Reason: Insomnia) 30 Days Qty: 30 0RF Interventions: ED Discharge Assessment Last Done: 06/07/22 20:15 Discharge Date/Time: 06/07/22 20:16
[2022-06-07 16:47] VITALS: BP 118/67; PULSE 92; RESP 22; TEMP 37; O2SAT 96; BMI 24.2
[2022-06-07] MEDS: Diphth,Pertus(ACell),Tet Adult 0.5 ML SYRINGE IM (17:25)
--- NOTE | 2022-06-07 19:40 | PC.NURSE ---
this rn assumed care of pt @ 1900. pt sleeping positioned on L side on stretcher at this time
[2022-06-07 20:13] VITALS: BP 120/78; PULSE 86; RESP 18; TEMP 36.4; O2SAT 97
--- NOTE | 2022-06-07 20:13 | PC.NURSE ---
pt requested assistance with ride home this rn discussed with associate attorney and associate attorney requested assistance from nursing supervisor maintenance and custodians regarding lyft ride. pt discharged to waiting room. pt ambulatory. vss. skin pwd. pt provided with discharge packet. pt verbalized understanding of discharge plan
== END 2022-06-07 20:16 | disposition home or self-care (01) ==
PROVIDERS: Emergency Provider Emergency Medicine Emergency Medical Services
DX: S06.0XAA Concussion with loss of consciousness status unknown, initial encounter (principal); S00.511A Abrasion of lip, initial encounter; F16.19 Hallucinogen abuse with unspecified hallucinogen-induced disorder; F12.10 Cannabis abuse, uncomplicated; R51.9 Headache, unspecified; M54.2 Cervicalgia; F17.210 Nicotine dependence, cigarettes, uncomplicated; W01.0XXA Fall on same level from slipping, tripping and stumbling without subsequent striking against object, initial encounter; Y93.9 Activity, unspecified; Y92.9 Unspecified place or not applicable; Y99.9 Unspecified external cause status; Z71.6 Tobacco abuse counseling; Z79.899 Other long term (current) drug therapy; Z23 Encounter for immunization
CPT/HCPCS: 70450; 70486; 72125; 90471; 90715; 99284; 99285

== ENCOUNTER 2022-10-17 00:16 | Emergency (ER) | payer OTHER, SELFPAY ==
--- NOTE | 2022-10-17 | ECG_ITS ---
Test Reason : ETOH/WEAKNESS Blood Pressure : / mmHG Vent. Rate : 084 BPM Atrial Rate : 084 BPM P-R Int : 164 ms QRS Dur : 086 ms QT Int : 364 ms P-R-T Axes : 044 045 028 degrees QTc Int : 430 ms Normal sinus rhythm Normal ECG When compared with ECG of 03-MAY-2020 23:43, No significant change was found Referred By: Generic ED Physician Electronically Signed By:SAUL MAURER MD
[2022-10-17 00:21] VITALS: BP 117/65; BP 118/72; PULSE 102; PULSE 84; RESP 20; TEMP 37.3; O2SAT 94; O2SAT 98; BMI 26.6
--- NOTE | 2022-10-17 00:36 | MHC.EDTECH ---
patient came by ambulance changed into hospital attire placed on rn cardiac cath and vitals taken and EKG done. Call dennison within reach.
--- NOTE | 2022-10-17 00:41 | PC.NURSE ---
Assumed care of pt. pt appearing intoxicated, intermittently tearful, sts does not normally drink, uses marijuana daily, sts does not know person who provided marijuana to her, concerned for unknown additives. pt answering questions appropriately at this time.
[2022-10-17 01:42] VITALS: BP 113/76; PULSE 70; RESP 18; TEMP 36.7; O2SAT 100
--- NOTE | 2022-10-17 03:46 | PC.NURSE ---
pt sleeping, easily rousable, no acute medcical por behavioral concerns at this time, WCTM
[2022-10-17 04:15] VITALS: BP 103/62; PULSE 71; RESP 16; O2SAT 97
[2022-10-17 06:00] VITALS: BP 100/76; PULSE 68
--- NOTE | 2022-10-17 06:13 | PC.NURSE ---
Pt awake, AxO x4, ambulating to bathroom with steady gait. pt endorses ETOh intoxication last pm, also cannibis use, denies medical complains. Sts feels hungover but no neuro deficits, no medical complaints. MD Sims made aware.
--- NOTE | 2022-10-17 06:31 | ED.GENADULT ---
HPI - General Adult General Chief complaint: General Medical Stated complaint: weakness Time Seen by Provider: 10/17/22 06:30 Source: patient, EMS, RN notes reviewed and old records reviewed Mode of arrival: EMS History of Present Illness HPI narrative: 42-year-old female with past medical history of PTSD, presenting to the ED via EMS early this morning complaining of lightheadedness/dizziness and generalized fatigue/weakness s/p smoking marijuana and drinking alcohol. Patient denies symptoms at present, reports she feels in harassed. Denies SI/HI, fall/injury, headache, CP/SOB, abdominal pain, nausea/vomiting. Onset (ago): hour(s) Related Data Previous Rx's Medication Instructions Recorded doxycycline hyclate 100 mg tablet 100 mg PO BID 5 days #9 tabs 12/16/21 emtricitabine 200 mg-tenofovir 1 tab PO DAILY 28 days #28 tabs 12/16/21 disoproxil fumarate 300 mg tablet (Truvada) fluoxetine 10 mg capsule 10 mg PO DAILY 30 days #30 caps 12/16/21 metronidazole 500 mg tablet 500 mg PO BID 5 days #9 tabs 12/16/21 raltegravir 400 mg tablet 400 mg PO BID 28 days #56 tabs 12/16/21 (Isentre) trazodone 50 mg tablet 50 mg PO BEDTIME PRN Insomnia 30 12/16/21 days #30 tabs ibuprofen 400 mg tablet 400 mg PO Q6H PRN pain #20 tabs 01/13/22 doxycycline monohydrate 100 mg 100 mg PO BID #14 caps 05/31/22 capsule Allergies Allergy/AdvReac Type Severity Reaction Status Date / Time No Known Allergies Allergy Verified 01/20/22 14:59 [No Known Allergies*] Review of Systems Review of Systems: Constitutional: No Fever, No Chills, + Fatigue, + Malaise ENT/Mouth: No Ear Pain, No Nasal Congestion, No sore throat, No Rhinorrhea, No Swallowing Difficulty Eyes: No Eye Pain, No Swelling, No Redness, No Vision Changes Cardiovascular: No Chest Pain, No SOB, No Palpitations Respiratory: No Cough, No Sputum, No Wheezing, No Dyspnea Gastrointestinal: No Nausea, No Vomiting, No Diarrhea, No Constipation, No Abdominal pain Genitourinary:No Dysuria, No Urinary Frequency, No Hematuria, No Flank Pain, No Urinary Flow Changes, No Hesitancy Musculoskeletal: No joint pain, No Myalgias, No Joint Swelling Skin: No Skin Lesions, No rash Neuro: + Weakness, No Numbness, No Paresthesias, No Loss of Consciousness, + lightheaded/ Dizziness (resolved), No Headache Yes all other systems are reviewed and are negative Constitutional: Constitutional: Reports as per HPI Neurologic: Denies Abnormal speech present [facility] Past Medical History Attestation statement: The following information was validated with the patient. Source: old records reviewed Medical History PTSD (post-traumatic stress disorder) Substance abuse Social History Social History Household Members: Other Household Members Other:: mother Housing: House Do you presently have visiting nurse or other home services: No Alcohol intake: current Alcohol intake frequency: holidays/special occasions only Patient Tobacco Use Status: Current everyday Tobacco user Tobacco use type: Cigarette Cigarettes Per Day: 7 Smoked in Last 30 Days: Yes Second Hand Smoke Exposure: No Use of substances other than those prescribed or required for medical reasons: Yes Substance Use Type: Marijuana Substance Use Frequency: Chronic Longstanding Advance Directives: No Advance Directives Information Provided: Yes Patient : No service: No 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, 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 Sexual orientation: Straight/Heterosexual Physical Exam ED Vital Signs: Vital Signs - 24 hr 10/17/22 00:21 10/17/22 01:42 10/17/22 04:15 Temperature 99.1 F 98.1 F Pulse Rate 84 70 71 Respiratory Rate 20 18 16 Blood Pressure 117/65 113/76 103/62 Pulse Oximetry 98 100 97 Oxygen Delivery Method Room Air Room Air Room Air 10/17/22 06:00 Temperature Pulse Rate 68 Respiratory Rate Blood Pressure 100/76 Pulse Oximetry Oxygen Delivery Method BMI result Body Mass Index 26.6 Const General: cooperative, healthy appearing, no acute distress, alert and awake Orientation/consciousness: patient oriented x3 Limitations: no limitations HENMT Head: Yes normal to inspection and Yes atraumatic Ears: hearing grossly normal bilaterally General nose exam: Normal external nose present Face and sinus: Yes normal facial exam Throat: Yes posterior oropharynx normal, Yes tonsils normal and Yes uvula midline Eyes General: appearance normal, both eyes and all related structures Pupils: Equal, round and reactive pupils present EOM: EOMs intact bilaterally Neck Neck: Yes normal visual inspection, Yes no lymphadenopathy and Yes no meningeal signs Resp Effort & Inspection: normal respiratory effort and no respiratory distress Auscultation: clear to auscultation bilaterally, no rales, no rhonchi and no wheezes Cardio Rate: regular rate Heart sounds: S1 normal heart sound present and S2 normal heart sound present GI Inspection: Yes normal to inspection Palpation (GI): Soft to palpation, nontender, no guarding and not rigid Back/Spine/Pelvis Other: No midline cervical/thoracic/lumbar spinous tenderness/step-off or deformity Skin Rashes: no rashes Wounds: no wounds Neuro General: patient oriented x3, gait normal, tone normal, moves all extremities, no meningeal signs, no focal motor deficits and CN's II-XI intact bilaterally Cranial nerves: Yes CN's II-XII intact bilaterally, Yes Equal, round and reactive pupils present and Yes Bilaterally intact EOM present Cognition (Neuro): normal cognition Speech: No Abnormal speech present Gait exam (Neuro): Normal gait present Motor exam (neuro): 5/5 motor strength present throughout Extrem General: Yes normal to inspection Medical Decision Making Medical Decision Making MDM Narrative: 42-year-old female with past medical history of PTSD, presenting to the ED via EMS early this morning complaining of lightheadedness/dizziness and generalized fatigue/weakness s/p smoking marijuana and drinking alcohol. On exam vital signs stable, NAD, nontoxic appearing, asymptomatic at present, requesting discharge. Patient presented to the ED around midnight, this provider evaluated patient at 06:00, did receive IVF overnight. Currently awake and alert, A&O x3, ambulating with steady gait. Offered labs however patient declined Symptoms likely from polysubstance abuse vs dehydration or metabolic abnormalities. Lower suspicion for ACS/PE or dissection Results discussed with patient including worrisome signs and symptoms and strict return precautions, and when to return to the emergency department. They verbalized understanding and feel safe for discharge at this time. Differential Diagnosis Differential Diagnoses: The differential diagnosis associated with the presentation includes As above Independent Historian Clinical information obtained from an independent historian. History obtained from or confirmed by: EMS External Record Review External record reviewed: Inpatient record, Office record, Outpatient record, Prior outpatient labs, Prior outpatient radiology, Primary care record and Outside ED record Tests considered The following testing was considered but not selected: As above Social Determinants Patient?s care significantly limited by Social Determinants of Health including: Alcoholism and drug addiction in family and Other Social Determinant of Health Discharge Plan Discharge Clinical Impression: Substance abuse, Lightheadedness Patient Disposition: Home, Self-Care Instructions: Polysubstance Abuse (ED), Lightheadedness (ED) Additional Instructions: Please avoid alcohol and drug use Please stay hydrated Follow-up with her doctor If symptoms persist or worsen, chest pain, abdominal pain, nausea/vomiting return to the ED Prescriptions: No Action ibuprofen 400 mg tablet 400 mg PO Q6H PRN (Reason: pain) Qty: 20 0RF doxycycline monohydrate 100 mg capsule 100 mg PO BID Qty: 14 0RF doxycycline hyclate 100 mg Tablet 100 mg PO BID 5 Days Qty: 9 0RF metronidazole 500 mg Tablet 500 mg PO BID 5 Days Qty: 9 0RF Isentress 400 mg Tablet 400 mg PO BID 28 Days Qty: 56 0RF emtricitabine-tenofovir (TDF) [Truvada] 200-300 mg Tablet 1 tab PO DAILY 28 Days Qty: 28 0RF fluoxetine 10 mg Capsule 10 mg PO DAILY 30 Days Qty: 30 0RF trazodone 50 mg Tablet 50 mg PO BEDTIME PRN (Reason: Insomnia) 30 Days Qty: 30 0RF Referrals: Physician,Unknown J [Primary Care Provider] - 1 week Interventions: ED Discharge Assessment Last Done: 10/17/22 06:54 Discharge Date/Time: 10/17/22 06:54
== END 2022-10-17 06:54 | disposition home or self-care (01) ==
PROVIDERS: Emergency Provider Emergency Medicine
DX: R42 Dizziness and giddiness (principal); F19.20 Other psychoactive substance dependence, uncomplicated; F43.10 Post-traumatic stress disorder, unspecified; F12.90 Cannabis use, unspecified, uncomplicated; F17.210 Nicotine dependence, cigarettes, uncomplicated; Z79.899 Other long term (current) drug therapy
CPT/HCPCS: 93005; 99283; 99285

== ENCOUNTER → 2022-10-17 00:23 | Outpatient (BNV) | payer OTHER, SELFPAY | PROVIDERS: Emergency Provider Emergency Medicine; Visit Provider Internal Medicine Cardiovascular Disease | DX: R53.1 Weakness (principal) | CPT/HCPCS: 93010 ==

== ENCOUNTER 2023-02-18 21:12 | Emergency (ER) | payer OTHER, SELFPAY ==
[2023-02-18 21:33] VITALS: BP 108/62; BP 128/84; PULSE 89; PULSE 95; RESP 15; TEMP 36.3; O2SAT 100; O2SAT 96; BMI 30.8
--- NOTE | 2023-02-18 22:00 | PC.NURSE ---
Patient presenting for evaluation after PD found her in the road. Patient is alert and oriented, able to answer questions appropriately, speaks quietly. Patient admits to using marijuana this evening and is wondering if it might have been laced. Denies alcohol use today. Patient is calm and cooperative, no s/s of distress noted.
--- NOTE | 2023-02-19 00:10 | ED_ITS ---
HPI - Overdose General Chief Complaint: ETOH/Substance Use Stated Complaint: ETOH, DRUG USE, SMOKED WEED Time Seen by Provider: 02/18/23 22:17 Source: patient Mode of arrival: EMS Limitations: no limitations History of Present Illness HPI Narrative: Patient history of marijuana abuse and PCP use in the past was found in middle of the street by PD said that she had some weed might be laced with something denies any alcohol use no Narcan was given. Also patient complaining of nasal congestion for last few days Related Data Home Medications Medication Instructions Recorded Confirmed No Known Home Meds 02/19/23 02/19/23 Allergies Allergy/AdvReac Type Severity Reaction Status Date / Time No Known Allergies Allergy Verified 01/20/22 14:59 [No Known Allergies*] Review of Systems 2 Review of Systems: Yes all other systems are reviewed and are negative [facility] Past Medical History Medical History PTSD (post-traumatic stress disorder) Substance abuse Social History Social History Household Members: Other Household Members Other:: mother Housing: House Do you presently have visiting nurse or other home services: No Alcohol intake: current Alcohol intake frequency: holidays/special occasions only Patient Tobacco Use Status: Current everyday Tobacco user Tobacco use type: Cigarette Cigarettes Per Day: 7 Smoked in Last 30 Days: Yes Second Hand Smoke Exposure: No Use of substances other than those prescribed or required for medical reasons: Yes Substance Use Type: Marijuana Advance Directives: No Advance Directives Information Provided: No service: No 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 Oriented X3. No acute distress. Eyes: PERRLA, No Nystagmus ENT: Pharynx normal. Oral Mucosa moist Neck: Normal inspection. Neck supple. CVS: Normal heart rate and rhythm. Pulses normal. Respiratory: No respiratory distress. Equal air entry bilateral, no wheezing/rales/rhonchi Abdomen: Soft and nontender. Bowel sounds are present, no mass palpable, no CVA tenderness Skin: Skin warm and dry. Normal skin color. Normal skin turgor. Extremities: No lower extremity edema. No calf tenderness Neuro: Oriented X 3. No motor deficit. No sensory deficit.No cerebellar signs , cranial nerves II-XII intact Course Course Course Narrative: 1027am cleared by addiction medicine team. has normal O2 sats, unsure when COVID symptoms started will hold PAXLOVID at this time. stable for DC Medical Decision Making Medical Decision Making MDM Narrative: Patient's history of PCP abuse and THC abuse likely patient used PCP also patient only nasal congestion will check for the COVID check the urine drug screening at this time patient denies any hallucinations Lab Data 02/19/23 09:40 02/19/23 09:40 Labs: Lab Results 02/19/23 02/19/23 Range/Units 01:47 09:40 WBC 6.0 (4.8-10.8) X10*3/uL RBC 4.37 (4.20-5.50) X10*6/uL Hgb 12.9 (12.0-16.0) g/dl Hct 38.4 (37.0-47.0) % MCV 87.9 (80.0-98.0) fL MCH 29.5 (27.0-33.0) pg MCHC 33.6 (31.0-35.0) g/dl RDW 13.6 (11.0-16.0) % Plt Count 301 (160-400) X10*3/uL MPV 9.6 (9.4-12.3) fL Immature Gran % (Auto) 0.2 (0.0-0.4) % Neut % (Auto) 40.5 L (45-73) % Lymph % (Auto) 47.7 H (20-40) % [place]bour % (Auto) 7.3 (2-11) % Eos % (Auto) 3.8 (0-4) % Baso % (Auto) 0.5 (0-2) % Lymph # (Auto) 2.9 (1.2-4.9) X10*3/uL [place] # (Auto) 0.4 (0.1-1.2) X10*3/uL Eos # (Auto) 0.2 (0.0-0.4) X10*3/uL Baso # (Auto) 0.0 (0.0-0.2) X10*3/uL Abs Immat Gran (auto) 0.01 (0.00-0.03) X10*3/uL Absolute Neuts (auto) 2.4 (2.0-8.3) x10*3/uL Absolute Nucleated RBC 0.000 (0.0-0.012) X10*3/uL Nucleated RBC % (auto) 0.0 (0.0-0.2) /100WBC Sodium 141 (135-145) mmol/L Potassium 3.8 (3.3-5.1) mmol/L Chloride 108 (96-108) mmol/L Carbon Dioxide 28 (22-29) mmol/L Anion Gap 9 L (12-20) BUN 10 (9-16) mg/dL Creatinine 0.67 (0.5-1.4) mg/dL Estim Creat Clear Calc 106.8 Estimated GFR > 60 Random Glucose 120 H (60-115) mg/dL Calcium 9.1 (8.4-10.2) mg/dL Total Bilirubin 0.3 (0.0-1.0) mg/dL AST 13 (5-31) U/L ALT 10 (0-31) U/L Alkaline Phosphatase 72 (39-117) U/L Total Protein 7.0 (6.5-8.0) g/dL Albumin 3.9 (3.5-5.0) g/dL Urine Color Yellow Urine Appearance Turbid Urine pH 5.5 (5.0-9.0) Ur Specific [employer] 1.025 (1.005-1.025) Urine Protein Negative (Neg-Trace) mg/dL Urine Glucose (UA) Negative (Negative) mg/dL Urine Ketones Negative (Negative) mg/dL Urine Blood Negative (Negative) Urine Nitrite Negative (Negative) Ur Leukocyte Esterase Negative (Negative) Urine RBC 3-5 H (0-2) /HPF Urine WBC 0-5 (0-5) /HPF Ur Squamous Epith Cells 0-2 (0-2) /HPF Urine Bacteria None Seen (None Seen) Hyaline Casts 0-2 (0-2) /LPF Urine Test NEGATIVE (NEGATIVE) Urine Opiates Screen Not Detected (Not Detect) Urine Fentanyl Screen Not Detected (Not Detect) Ur Barbiturates Screen Not Detected (Not Detect) Ur Phencyclidine Scrn POSITIVE H (Not Detect) Ur Amphetamines Screen Not Detected (Not Detect) U Benzodiazepines Scrn Not Detected (Not Detect) Urine Cocaine Screen Not Detected (Not Detect) U Marijuana (THC) Screen POSITIVE H (Not Detect) Influenza Type A (PCR) NEGATIVE (Negative) Influenza Type B (PCR) NEGATIVE (Negative) RSV RNA Qual (PCR) NEGATIVE (Negative) SARS-CoV-2 RNA (RT-PCR) POSITIVE A (Negative) Discharge Plan Discharge Clinical Impression: Drug abuse, phencyclidine, COVID-19 Patient Disposition: Home, Self-Care Instructions: Polysubstance Abuse (ED), COVID-19 (Coronavirus Disease 2019) (ED) Additional Instructions: do not use street drugs Follow-up with detox as stated return for worsening symptoms such as difficulty breathing, chest pain or any other concerns. please call detox centers from home. Prescriptions: No Action No Known Home Meds
[2023-02-19 02:01] LABS: Amphetamine Screen Urine Not Detected (Not Detect); Barbiturates, Urine Not Detected (Not Detect); Benzodiazepines Screen Urine Not Detected (Not Detect); Cannabinoid Screen Urine POSITIVE (Not Detect); Cocaine Screen Urine Not Detected (Not Detect); Fentanyl, urine Not Detected (Not Detect); Opiate Screen Urine Not Detected (Not Detect); Phencyclidine Screen Urine POSITIVE (Not Detect)
[2023-02-19 02:29] LABS: Influenza A PCR NEGATIVE (Negative); Influenza B PCR NEGATIVE (Negative); Resp Syncy Virus RNA Qual PCR NEGATIVE (Negative); SARS COV2 PCR INHOUSE POSITIVE (Negative)
--- NOTE | 2023-02-19 02:30 | PC.NURSE ---
Patient covid positive, given mask and instructed to wear it. Patient put on mask without issue. No s/s of distress noted at this time.
[2023-02-19 03:19] VITALS: BP 82/56; PULSE 82; TEMP 36.8; O2SAT 98
--- NOTE | 2023-02-19 06:32 | PC.NURSE ---
took of care at 3am from RN Razia, pt resting in bed, requesting a room, charge nurse Iraida caro, pt awaiting to be seen and determine plan of care.
[2023-02-19 06:46] VITALS: BP 96/67; PULSE 77; RESP 18; TEMP 36.9; O2SAT 97
--- NOTE | 2023-02-19 07:56 | PC.NURSE ---
Pt to be brought over to the POD, Recovery team reached out too, diet order/care team order placed. PT to be changed over by security and brought over
[2023-02-19 08:49] LABS: Appearance Urine Turbid; Color Urine Yellow; Glucose Urine UA Negative (Negative); Leukocyte Esterase Urine Negative (Negative); Nitrite Urine Negative (Negative); PH 5.5 (5.0-9.0); Specific Gravity - Urine 1.025 (1.005-1.025); Urine Blood Negative (Negative); Urine Ketones Negative (Negative); Urine Protein Negative (Neg-Trace)
[2023-02-19 08:50] LABS: UPreg QC Valid YES; Urine Pregnancy NEGATIVE (NEGATIVE)
[2023-02-19 08:52] LABS: Bacteria Urine None Seen (None Seen); Hyaline Casts Urine 0-2 /LPF (0-2); Squamous Epithelial Cell Urine 0-2 /HPF (0-2); WBC Urine 0-5 /HPF (0-5)
[2023-02-19 09:56] LABS: MANUAL DIFF FLAG NO
[2023-02-19 09:57] LABS: Hematocrit 38.4 % (37.0-47.0); Hemoglobin 12.9 g/dl (12.0-16.0); Mean Corpuscular Hemoglobin 29.5 pg (27.0-33.0); Mean Corpuscular Volume 87.9 fL (80.0-98.0); Red Blood Count 4.37 X10*6/uL (4.20-5.50)
[2023-02-19 09:58] LABS: Basophils Percent Auto 0.5 % (0-2); Eosinophils Absolute Auto 0.2 X10*3/uL (0.0-0.4); Eosinophils Percent Auto 3.8 % (0-4); Imm Gran Abs Auto 0.01 X10*3/uL (0.00-0.03); Imm Gran Pct Auto 0.2 % (0.0-0.4); Lymphocytes Absolute Auto 2.9 X10*3/uL (1.2-4.9); Lymphocytes Percent Auto 47.7 % (20-40); Mean Corpuscular HGB Conc 33.6 g/dl (31.0-35.0); Mean Platelet Volume 9.6 fL (9.4-12.3); Monocytes Absolute Auto 0.4 X10*3/uL (0.1-1.2); Monocytes Percent Auto 7.3 % (2-11); Neutrophils Absolute Auto 2.4 x10*3/uL (2.0-8.3); Neutrophils Percent Auto 40.5 % (45-73); Platelet Count 301 X10*3/uL (160-400); Red Cell Distribution Width 13.6 % (11.0-16.0)
[2023-02-19 10:13] LABS: Alanine Aminotransferase 10 U/L (0-31); Albumin Level 3.9 g/dL (3.5-5.0); Alkaline Phosphatase 72 U/L (39-117); Anion Gap 9 (12-20); Aspartate Amino Transferase 13 U/L (5-31); Bilirubin Total 0.3 mg/dL (0.0-1.0); Blood Urea Nitrogen 10 mg/dL (9-16); Calcium 9.1 mg/dL (8.4-10.2); Carbon Dioxide 28 mmol/L (22-29); Chloride 108 mmol/L (96-108); Creatinine Clr Calc Pharmacy 106.8; Estimated Glomerular Filt Rate > 60; Glucose Random 120 mg/dL (60-115); Potassium 3.8 mmol/L (3.3-5.1); Sodium 141 mmol/L (135-145)
[2023-02-19 10:19] VITALS: RESP 18
--- NOTE | 2023-02-19 10:20 | PC.NURSE ---
patient came to POD from main ED. NO SI/HI/AH/VH at this time. Vital signs WNL. Patient sleeping comfortably at this time.
[2023-02-19 10:24] VITALS: BP 92/61; PULSE 74; RESP 18; TEMP 37.3; O2SAT 97
--- NOTE | 2023-02-19 10:32 | MHC.RECOVSUP ---
Met with pt in [facility] who is here for BRIAN. Pt provided recovery resources and is not able to go to [facility] as they currently have covid.
== END 2023-02-19 10:53 | disposition home or self-care (01) ==
PROVIDERS: Emergency Provider Internal Medicine
DX: F16.10 Hallucinogen abuse, uncomplicated (principal); F12.10 Cannabis abuse, uncomplicated; U07.1 COVID-19; F17.210 Nicotine dependence, cigarettes, uncomplicated; Z71.6 Tobacco abuse counseling; Z79.899 Other long term (current) drug therapy
CPT/HCPCS: 0241U; 36415; 80053; 80307; 81001; 81025; 85025; 99284

== ENCOUNTER 2023-03-21 14:18 | Emergency (ER) | payer OTHER, SELFPAY ==
--- NOTE | ~2023-03-21 | XR_ITS ---
EXAMINATION: XR TIBIA-FIBULA LEFT XR TIBIA-FIBULA RIGHT CLINICAL INFORMATION: Pain after fall COMPARISON: Radiographs of right ankle from 10/26/2011. TECHNIQUE: Right tibia-fibula, AP and lateral views Left tibia-fibula, AP and lateral views FINDINGS: Right: Alignment is normal at the knee and ankle. Joint spaces are normal. Tibia and fibula are intact. No focal soft tissue swelling. Incidentally noted is a nonaggressive 1 x 2.6 cm somewhat serpiginous lucency with thin sclerotic border of the posterior calcaneus, new since 10/26/2011, possibly sequela of a remote calcaneal infarction. No aggressive bone lesions. A few small dystrophic calcifications are present in the anterior subcutaneous tissues. Left: Alignment is normal at the knee and ankle. The knee and ankle joint spaces are maintained. Tibia and fibula are intact. No focal soft tissue swelling. No suspicious bone lesions. A few small dystrophic calcifications are present in the anterior subcutaneous tissues. XR/XR tibia fibula RT 2V IMPRESSION: * No fracture or malalignment. No acute osseous injury in either lower extremity. 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
--- NOTE | ~2023-03-21 | XR_ITS ---
EXAMINATION: XR TIBIA-FIBULA LEFT XR TIBIA-FIBULA RIGHT CLINICAL INFORMATION: Pain after fall COMPARISON: Radiographs of right ankle from 10/26/2011. TECHNIQUE: Right tibia-fibula, AP and lateral views Left tibia-fibula, AP and lateral views FINDINGS: Right: Alignment is normal at the knee and ankle. Joint spaces are normal. Tibia and fibula are intact. No focal soft tissue swelling. Incidentally noted is a nonaggressive 1 x 2.6 cm somewhat serpiginous lucency with thin sclerotic border of the posterior calcaneus, new since 10/26/2011, possibly sequela of a remote calcaneal infarction. No aggressive bone lesions. A few small dystrophic calcifications are present in the anterior subcutaneous tissues. Left: Alignment is normal at the knee and ankle. The knee and ankle joint spaces are maintained. Tibia and fibula are intact. No focal soft tissue swelling. No suspicious bone lesions. A few small dystrophic calcifications are present in the anterior subcutaneous tissues. XR/XR tibia fibula LT 2V IMPRESSION: * No fracture or malalignment. No acute osseous injury in either lower extremity. 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
--- NOTE | ~2023-03-21 | CT_ITS ---
EXAMINATION: CT HEAD WITHOUT CONTRAST CT CERVICAL SPINE WITHOUT CONTRAST CLINICAL INFORMATION: Fall. Head strike. Neck pain. COMPARISON: CT head and cervical spine from 06/07/2022. TECHNIQUE: Contiguous axial imaging was performed from the skull base to vertex without intravenous administration of contrast. Contiguous axial imaging was performed from the upper chest through the skull base without intravenous administration of contrast. Coronal and sagittal reformats were obtained at the acquisition workstation. This CT examination was performed using dose optimization techniques as appropriate, variously including the following: *Automated exposure control. *Adjustment of mA and/or kV according to patient size (this includes techniques or standardized protocols for targeted exams where dose is matched to indication/reason for exam; i.e. extremities or head). *Use of iterative reconstruction technique. DLP: 956 mGy-cm FINDINGS: Head: There is no evidence of acute intracranial hemorrhage or edematous territorial infarction. Lester-white matter differentiation is preserved. There is no abnormal attenuation within the brain parenchyma. The ventricles are normal in morphology and size. No evidence for obstructive hydrocephalus. No abnormal mass effect or midline shift. No extra-axial fluid collections. No acute soft tissue or osseous abnormalities. Mild mucosal thickening of the paranasal sinuses. Moderate aerosolized mucus within the bilateral maxillary sinuses. The mastoid air cells and middle ear cavities are clear. Cervical Spine: The atlantooccipital and atlantoaxial articulations remain well aligned. Straightening of the normal cervical lordosis. Otherwise, there is anatomic alignment of the vertebral bodies and posterior elements. No evidence of acute fracture or subluxation. The vertebral body heights and disc spaces are maintained. There is no prevertebral soft tissue swelling. The thyroid gland and remaining cervical soft tissues are within normal limits. The lung apices demonstrate no abnormalities. CT/CT cervical spine wo IV con IMPRESSION: 1. No evidence of acute intracranial hemorrhage or edematous territorial infarction. 2. No evidence of acute fracture or traumatic subluxation of the cervical spine.
--- NOTE | ~2023-03-21 | US_ITS ---
EXAMINATION: US VENOUS ULTRASOUND WITH DOPPLER LOWER EXTREMITY, BILATERAL CLINICAL INFORMATION: Bilateral lower extremity muscular pain, suspected DVT. COMPARISON: None available. TECHNIQUE: Ultrasound of the deep veins is performed from the hip to the calf with compression sonography and color and pulse Doppler assessment. Spectral analysis with color-flow imaging is performed. FINDINGS: RIGHT: There is normal venous compression and respiratory variation and augmented flow. The visualized common femoral vein, superficial femoral vein, profunda femoral vein, popliteal vein, and the trifurcation region shows no evidence of deep venous thrombosis. There is no significant popliteal fossa cyst. LEFT: There is normal venous compression and respiratory variation and augmented flow. The visualized common femoral vein, superficial femoral vein, profunda femoral vein, popliteal vein, and the trifurcation region shows no evidence of deep venous thrombosis. There is no significant popliteal fossa cyst. If the patient's symptoms persist, followup ultrasound in 5 days 7 days might be of value to exclude proximal propagation from a non-visualized calf vein. US/US venous duplex LE BI IMPRESSION: No DVT demonstrated in the bilateral lower extremity.
[2023-03-21 14:31] VITALS: BP 126/85; BP 131/90; PULSE 103; PULSE 118; RESP 17; TEMP 37.3; O2SAT 96; BMI 26.3
[2023-03-21 14:33] VITALS: PULSE 101; RESP 18; O2SAT 97
--- NOTE | 2023-03-21 14:35 | PC.NURSE ---
Patient ARIADNE, was smoking weed that she claims was laced with dayna dust, this happens all the time . Pt subsequently fell and hit the back of her head on the sidewalk. Denies tenderness, pain in head/back or neck. Patient is calm and cooperative, alert and oriented x4, skin pwd. Pt reports 10/10 bilateral leg heaviness and pain. ROM present in all extremities
--- NOTE | 2023-03-21 14:56 | MHC.EDTECH ---
This PCT went into patient's room to fix the pulse ox. on pt's finger and patient removed her c-collar stating this is uncomfortable after I stated the doctor needs to see her before we can remove it.
--- NOTE | 2023-03-21 15:21 | ED_ITS ---
HPI - General Adult General Chief complaint: General Medical Stated complaint: FALL W/HEAD STRIKE S/P TAKING FENTANYL PER EMS Time Seen by Provider: 03/21/23 15:15 History of Present Illness HPI narrative: 42-year-old female with pmh of PTSD, Covid, and closed fracture of phalanx presents to the ED for fall after smoking marijuana laced with dayna dust/fentanyl and than later while walking falling and hitting her head and legs. Patient patient denies having any chest pain, abdominal pain, or headache before falling. Related Data Previous Rx's Medication Instructions Recorded naproxen 500 mg tablet 500 mg PO BID PRN pain 7 days #14 03/21/23 tabs Allergies Allergy/AdvReac Type Severity Reaction Status Date / Time No Known Allergies Allergy Verified 01/20/22 14:59 [No Known Allergies*] Review of Systems 2 Review of Systems: Smoked marijuana laced with fentanyl. hit head. loss of concsciounsess. bilateral leg pain Yes all other systems are reviewed and are negative PMFSH Past Medical History Medical History PTSD (post-traumatic stress disorder) Substance abuse Social History Social History Household Members: Other Household Members Other:: mother Housing: House Do you presently have visiting nurse or other home services: No Alcohol intake: current Alcohol intake frequency: holidays/special occasions only Patient Tobacco Use Status: Current everyday Tobacco user Tobacco use type: Cigarette Cigarettes Per Day: 7 Smoked in Last 30 Days: Yes Second Hand Smoke Exposure: No Use of substances other than those prescribed or required for medical reasons: Yes Substance Use Type: Marijuana Substance Use Frequency: Chronic Longstanding Advance Directives: No Advance Directives Information Provided: No Patient : No service: No 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, 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 Sexual orientation: Straight/Heterosexual Physical Exam ED Vital Signs: Vital Signs - 24 hr 03/21/23 14:31 03/21/23 14:33 03/21/23 18:27 Temperature 99.1 F Pulse Rate 103 H 101 H 82 Respiratory Rate 17 18 16 Blood Pressure 126/85 127/83 Pulse Oximetry 96 97 99 Oxygen Delivery Method Room Air Room Air Room Air BMI result Body Mass Index 26.3 Const General: cooperative, healthy appearing, comfortable, no acute distress, well developed, alert, awake and Physically active Orientation/consciousness: oriented to person, oriented to place, oriented to time and patient oriented x3 [facility] Head: Yes normal to inspection, Yes No palpable skull fracture present, Yes normocephalic and Yes atraumatic Eyes General: appearance normal, both eyes and all related structures Neck Neck: Yes normal visual inspection, Yes full ROM, Yes no lymphadenopathy, Yes no meningeal signs, Yes trachea midline, Yes supple, No anterior neck swelling and No tender Chest Chest palpation & inspection: normal inspection of the chest and normal palpation of entire chest wall Resp Effort & Inspection: normal respiratory effort and able to speak in complete sentences Auscultation: clear to auscultation bilaterally Cardio Jugular venous distension: no JVD Heart sounds: S1 normal heart sound present and S2 normal heart sound present GI Inspection: Yes normal to inspection and No abdominal wall ecchymosis Palpation (GI): Soft to palpation, not firm, nontender, no guarding and not rigid General: Yes no CVA tenderness Back/Spine/Pelvis Back: no CVA tenderness and No back tenderness Skin General skin exam: no rashes or lesions noted and elasticity normal Neuro General: oriented to person, oriented to place, oriented to time, patient oriented x3, gait normal, tone normal, moves all extremities, Normal light touch and pain sensation, no meningeal signs, no focal motor deficits, CN's II-XI intact bilaterally and normal sensation to monofilament Extrem Other: Bilateral anterior tibia tenderness without any swelling, pitting edema, ecchymosis, calf tenderness, or redness. Psych Appearance: grossly normal, well kempt and not disheveled Medical Decision Making Medical Decision Making [facility] Narrative: 42-year-old female with past medical history of COVID-19, PTSD, fracture of left ring finger presents to the ED for for smoking marijuana laced with doses fentanyl and then while walking she fell hit her head complaining of bilateral leg pain. Initial labs ordered and CT cervical spine CT ordered, bilateral lower extremity x-rays ordered. EKG NEGATIVE STEMI. TROPONIN NEGATIVE FOR INFARCTION. BILATERAL LOWER EXTREMITY NEGATIVE FOR X-RAY. BILATERAL ULTRASOUND NEGATIVE FOR DVT. PATIENT IS SAFE FOR DISCHARGE. Heart Score 0. Differential Diagnosis Differential Diagnoses: The differential diagnosis associated with the presentation includes (BRAIN BLEED, CERVICAL SPINE FRACTURE, DVT, RHABDOMYOLYSIS, BILATERAL LEG FRACTURE. COMPARTMENT SYNDROME.) Lab Data [facility] Lab Attestation statement: I reviewed the patient's lab results. 03/21/23 15:21 03/21/23 15:21 Labs: Lab Results 03/21/23 03/21/23 03/21/23 Range/Units 15:21 19:20 19:51 WBC 11.6 H (4.8-10.8) X10*3/uL RBC 4.54 (4.20-5.50) X10*6/uL Hgb 13.4 (12.0-16.0) g/dl Hct 40.7 (37.0-47.0) % MCV 89.6 (80.0-98.0) fL MCH 29.5 (27.0-33.0) pg MCHC 32.9 (31.0-35.0) g/dl RDW 13.8 (11.0-16.0) % Plt Count 361 (160-400) X10*3/uL MPV 9.4 (9.4-12.3) fL Immature Gran % (Auto) 0.4 (0.0-0.4) % Neut % (Auto) 72.6 (45-73) % Lymph % (Auto) 22.0 (20-40) % [place] % (Auto) 4.1 (2-11) % Eos % (Auto) 0.4 (0-4) % Baso % (Auto) 0.5 (0-2) % Lymph # (Auto) 2.6 (1.2-4.9) X10*3/uL [place] # (Auto) 0.5 (0.1-1.2) X10*3/uL Eos # (Auto) 0.1 (0.0-0.4) X10*3/uL Baso # (Auto) 0.1 (0.0-0.2) X10*3/uL Abs Immat Gran (auto) 0.05 H (0.00-0.03) X10*3/uL Absolute Neuts (auto) 8.4 H (2.0-8.3) x10*3/uL Absolute Nucleated RBC 0.000 (0.0-0.012) X10*3/uL Nucleated RBC % (auto) 0.0 (0.0-0.2) /100WBC Sodium 141 (135-145) mmol/L Potassium 4.0 (3.3-5.1) mmol/L Chloride 106 (96-108) mmol/L Carbon Dioxide 26 (22-29) mmol/L Anion Gap 13 (12-20) BUN 13 (9-16) mg/dL Creatinine 0.84 (0.5-1.4) mg/dL Estim Creat Clear Calc 94.7 Estimated GFR > 60 Random Glucose 106 (60-115) mg/dL Calcium 9.7 D (8.4-10.2) mg/dL Magnesium 2.4 (1.6-2.6) mg/dL Total Bilirubin 0.5 (0.0-1.0) mg/dL AST 16 (5-31) U/L ALT 17 (0-31) U/L Alkaline Phosphatase 77 (39-117) U/L Total Creatine Kinase 189 H (26-140) U/L Troponin I High Sens < 2.7 (<3.5-17.0) ng/L Total Protein 7.9 (6.5-8.0) g/dL Albumin 4.4 (3.5-5.0) g/dL Beta HCG, Quant < 2 mIU/mL Urine Color Yellow Urine Appearance Clear Urine pH 6.0 (5.0-9.0) Ur Specific [place] 1.025 (1.005-1.025) Urine Protein Negative (Neg-Trace) mg/dL Urine Glucose (UA) Negative (Negative) mg/dL Urine Ketones Trace (Negative) mg/dL Urine Blood Negative (Negative) Urine Nitrite Negative (Negative) Ur Leukocyte Esterase Negative (Negative) Urine Opiates Screen Not Detected (Not Detect) Urine Fentanyl Screen Not Detected (Not Detect) Ur Barbiturates Screen Not Detected (Not Detect) Ur Phencyclidine Scrn POSITIVE H (Not Detect) Ur Amphetamines Screen Not Detected (Not Detect) U Benzodiazepines Scrn Not Detected (Not Detect) Urine Cocaine Screen Not Detected (Not Detect) U Marijuana (THC) Screen POSITIVE H (Not Detect) Ethyl Alcohol < 10 mg/dL Independent Interpretation I performed an independent interpretation of an: EKG (NORMAL SINUS RHYTHM. NEGATIVE STEMI), Plain X-Ray, Ultrasound and CT Scan Radiology Impression Discussion of test interpretation with radiology: I have reviewed the radiologist's reading. External Record Review External record reviewed: Other (pRIOR VISITS) Prescription Management I considered prescription management with: Pain Medication Discharge Plan Discharge Clinical Impression: Substance abuse, Bilateral leg pain, Fall Patient Disposition: Home, Self-Care Instructions: Polysubstance Abuse (ED), Fall Prevention (ED), Leg Pain (ED) Additional Instructions: Your images came back negative for any fractures, brain bleed, skull fracture, or cervical spine fracture. Blood work came back normal. Urine negative for infection or . Recommend follow-up with the primary care provider. Return to the ED immediately for any chest pain, shortness of breath, headache, dizziness, coughing up blood, abdominal pain, swelling of lower extremities, calf pain, bluish black discoloration, chest pain/shortness of breath on inspiration, or any other concerning symptoms. Prescriptions: New naproxen 500 mg tablet 500 mg PO BID PRN (Reason: pain) 7 Days Qty: 14 0RF Stand Alone Forms: Work/School Release Interventions: ED Discharge Assessment Last Done: 03/21/23 22:20 Discharge Date/Time: 03/21/23 22:22 Print Language: Guatemalan
[2023-03-21 15:26] LABS: MANUAL DIFF FLAG NO
[2023-03-21 15:29] LABS: Basophils Absolute Auto 0.1 X10*3/uL (0.0-0.2); Basophils Percent Auto 0.5 % (0-2); Eosinophils Absolute Auto 0.1 X10*3/uL (0.0-0.4); Eosinophils Percent Auto 0.4 % (0-4); Hematocrit 40.7 % (37.0-47.0); Hemoglobin 13.4 g/dl (12.0-16.0); Imm Gran Abs Auto 0.05 X10*3/uL (0.00-0.03); Imm Gran Pct Auto 0.4 % (0.0-0.4); Lymphocytes Absolute Auto 2.6 X10*3/uL (1.2-4.9); Mean Corpuscular HGB Conc 32.9 g/dl (31.0-35.0); Mean Corpuscular Hemoglobin 29.5 pg (27.0-33.0); Mean Corpuscular Volume 89.6 fL (80.0-98.0); Mean Platelet Volume 9.4 fL (9.4-12.3); Monocytes Absolute Auto 0.5 X10*3/uL (0.1-1.2); Monocytes Percent Auto 4.1 % (2-11); Neutrophils Absolute Auto 8.4 x10*3/uL (2.0-8.3); Neutrophils Percent Auto 72.6 % (45-73); Platelet Count 361 X10*3/uL (160-400); Red Blood Count 4.54 X10*6/uL (4.20-5.50); Red Cell Distribution Width 13.8 % (11.0-16.0); White Blood Count 11.6 X10*3/uL (4.8-10.8)
[2023-03-21 15:45] LABS: Alanine Aminotransferase 17 U/L (0-31); Albumin Level 4.4 g/dL (3.5-5.0); Alkaline Phosphatase 77 U/L (39-117); Anion Gap 13 (12-20); Aspartate Amino Transferase 16 U/L (5-31); Bilirubin Total 0.5 mg/dL (0.0-1.0); Blood Urea Nitrogen 13 mg/dL (9-16); Calcium 9.7 mg/dL (8.4-10.2); Carbon Dioxide 26 mmol/L (22-29); Chloride 106 mmol/L (96-108); Creatinine Clr Calc Pharmacy 94.7; Estimated Glomerular Filt Rate > 60; Glucose Random 106 mg/dL (60-115); Sodium 141 mmol/L (135-145); Total Protein 7.9 g/dL (6.5-8.0)
[2023-03-21 15:47] LABS: Ethanol < 10 mg/dL
[2023-03-21 17:28] LABS: Magnesium 2.4 mg/dL (1.6-2.6)
[2023-03-21 17:33] LABS: HCG Quantitative < 2 mIU/mL
[2023-03-21 18:27] VITALS: BP 127/83; PULSE 82; RESP 16; O2SAT 99
--- NOTE | 2023-03-21 18:53 | ECG_ITS ---
Test Reason : weakness Blood Pressure : / mmHG Vent. Rate : 083 BPM Atrial Rate : 083 BPM P-R Int : 146 ms QRS Dur : 076 ms QT Int : 362 ms P-R-T Axes : 012 047 017 degrees QTc Int : 425 ms Normal sinus rhythm Normal ECG When compared with ECG of 17-OCT-2022 00:23, No significant change was found Referred By: Anam Storm Electronically Signed By:SAUL MAURER MD
[2023-03-21 19:28] LABS: Appearance Urine Clear; Color Urine Yellow; Glucose Urine UA Negative (Negative); Leukocyte Esterase Urine Negative (Negative); Nitrite Urine Negative (Negative); Specific Gravity - Urine 1.025 (1.005-1.025); Urine Blood Negative (Negative); Urine Ketones Trace mg/dL (Negative); Urine Protein Negative (Neg-Trace)
[2023-03-21 19:36] LABS: Amphetamine Screen Urine Not Detected (Not Detect); Barbiturates, Urine Not Detected (Not Detect); Benzodiazepines Screen Urine Not Detected (Not Detect); Cannabinoid Screen Urine POSITIVE (Not Detect); Cocaine Screen Urine Not Detected (Not Detect); Fentanyl, urine Not Detected (Not Detect); Opiate Screen Urine Not Detected (Not Detect); Phencyclidine Screen Urine POSITIVE (Not Detect)
[2023-03-21 20:23] LABS: Troponin-I High Sensitivity < 2.7 ng/L (<3.5-17.0)
== END 2023-03-21 22:22 | disposition home or self-care (01) ==
PROVIDERS: Physician Assistant; Emergency Provider Emergency Medicine; PCP Internal Medicine
DX: F19.10 Other psychoactive substance abuse, uncomplicated (principal); M79.604 Pain in right leg; M79.605 Pain in left leg; S89.91XA Unspecified injury of right lower leg, initial encounter; S89.92XA Unspecified injury of left lower leg, initial encounter; S09.90XA Unspecified injury of head, initial encounter; W19.XXXA Unspecified fall, initial encounter; Y93.9 Activity, unspecified; Y92.9 Unspecified place or not applicable; Y99.9 Unspecified external cause status; R53.1 Weakness; M54.2 Cervicalgia; F43.10 Post-traumatic stress disorder, unspecified
CPT/HCPCS: 36415; 70450; 72125; 73590; 80053; 80307; 81003; 82550; 83735; 84484; 84702; 85025; 93005; 93970; 99284

== ENCOUNTER → 2023-03-21 18:53 | Outpatient (BNV) | payer OTHER, SELFPAY | PROVIDERS: Emergency Provider Emergency Medicine; PCP Internal Medicine; Visit Provider Internal Medicine Cardiovascular Disease | DX: R53.1 Weakness (principal) | CPT/HCPCS: 93010 ==

== ENCOUNTER 2024-01-03 17:04 | Emergency (ER) | payer OTHER, SELFPAY | END 2024-01-03 20:14 | disposition left against medical advice (07) | LOC: HO.ED 19:32 | PROVIDERS: Emergency Provider Emergency Medicine; PCP Internal Medicine | DX: Z74.1 Need for assistance with personal care (principal) ==

== ENCOUNTER 2024-01-14 23:30 | Emergency (ER) | payer OTHER, SELFPAY ==
[2024-01-14 23:39] VITALS: BP 128/75; BP 136/86; PULSE 93; PULSE 99; RESP 20; TEMP 36.8; O2SAT 97; BMI 30.4
--- NOTE | 2024-01-14 23:57 | PC.NURSE ---
pt biba from home, a&ox4, respirations even and unlabored. pt reporting SI with plan, reports plan to OD. pt reports prior to arrival she used etoh and dayna dust to take her life. pt reports at this time she had found out her boyfriend is rocha pt states i cant do this anymore i want to . pt at this time denies HI. pt vss. pt placed in green gown, belongings placed into decon. 1:1 sitter at bedside.
--- NOTE | 2024-01-15 00:36 | ED.PSYCH ---
HPI - Psych General Chief Complaint: Psychiatric Symptoms Stated Complaint: ETOH, UNKOWN DRUG USE Time Seen by Provider: 01/15/24 00:33 Source: patient Mode of arrival: ambulatory Limitations: no limitations History of Present Illness ED Provider: camila HASKINS Narrative: Patient has been very upset at home came to know her boyfriend is a rocha smoked PCP and marijuana which she does in the past, also feels suicidal with a plan to overdose Related Data Previous Rx's ?Medication ?Instructions ?Recorded naproxen 500 mg tablet 500 mg PO BID PRN pain 7 days #14 03/21/23 tabs Allergies Allergy/AdvReac Type Severity Reaction Status Date / Time No Known Allergies Allergy Verified 01/14/24 23:42 [No Known Allergies*] Review of Systems Review of Systems: Yes all other systems are reviewed and are negative PMFSH Past Medical History Medical History PTSD (post-traumatic stress disorder) Substance abuse Social History Social History Household Members: Other Household Members Other:: mother Housing: House Do you presently have visiting nurse or other home services: No Alcohol intake: current Alcohol intake frequency: holidays/special occasions only Patient Tobacco Use Status: Current everyday Tobacco user Tobacco use type: Cigarette Cigarettes Per Day: 7 Smoked in Last 30 Days: No Second Hand Smoke Exposure: No Use of substances other than those prescribed or required for medical reasons: Yes Substance Use Type: Marijuana Advance Directives: No Advance Directives Information Provided: No Do you have a plan to hurt others: No Plan Patient : No service: No 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 Oriented X3. No acute distress. Delirious Eyes: PERRLA, No Nystagmus ENT: Pharynx normal. Oral Mucosa moist Neck: Normal inspection. Neck supple. CVS: Normal heart rate and rhythm. Pulses normal. Respiratory: No respiratory distress. Equal air entry bilateral, no wheezing/rales/rhonchi Abdomen: Soft and nontender. Bowel sounds are present, no mass palpable, no CVA tenderness Skin: Skin warm and dry. Normal skin color. Normal skin turgor. Extremities: No lower extremity edema. No calf tenderness Neuro: Oriented X 3. No motor deficit. Medical Decision Making Medical Decision Making [facility] Narrative: Patient with depressionsubstance abuse feels suicidal get care team involved Lab Data [facility] Lab Attestation statement: I reviewed the patient's lab results. 01/15/24 00:57 01/15/24 00:57 Labs: Lab Results 01/15/24 01/15/24 Range/Units 00:57 02:19 WBC 9.0 (4.8-10.8) X10*3/uL RBC 4.29 (4.20-5.50) X10*6/uL Hgb 12.5 (12.0-16.0) g/dl Hct 37.2 (37.0-47.0) % MCV 86.7 (80.0-98.0) fL MCH 29.1 (27.0-33.0) pg MCHC 33.6 (31.0-35.0) g/dl RDW 13.9 (11.0-16.0) % Plt Count 353 (160-400) X10*3/uL MPV 9.2 L (9.4-12.3) fL Immature Gran % (Auto) 0.2 (0.0-0.4) % Neut % (Auto) 56.6 (45-73) % Lymph % (Auto) 37.3 (20-40) % [place] % (Auto) 4.5 (2-11) % Eos % (Auto) 1.0 (0-4) % Baso % (Auto) 0.4 (0-2) % Lymph # (Auto) 3.3 (1.2-4.9) X10*3/uL [place] # (Auto) 0.4 (0.1-1.2) X10*3/uL Eos # (Auto) 0.1 (0.0-0.4) X10*3/uL Baso # (Auto) 0.0 (0.0-0.2) X10*3/uL Abs Immat Gran (auto) 0.02 (0.00-0.03) X10*3/uL Absolute Neuts (auto) 5.1 (2.0-8.3) x10*3/uL Absolute Nucleated RBC 0.000 (0.0-0.012) X10*3/uL Nucleated RBC % (auto) 0.0 (0.0-0.2) /100WBC Sodium 140 (135-145) mmol/L Potassium 3.5 (3.3-5.1) mmol/L Chloride 109 H (96-108) mmol/L Carbon Dioxide 23 (22-29) mmol/L Anion Gap 12 (12-20) BUN 8 L (9-16) mg/dL Creatinine 0.70 (0.5-1.4) mg/dL Estim Creat Clear Calc 108.4 Estimated GFR > 60 Random Glucose 99 (60-115) mg/dL Calcium 9.1 D (8.4-10.2) mg/dL Total Bilirubin 0.3 (0.0-1.0) mg/dL AST 16 (5-31) U/L ALT 16 (0-31) U/L Alkaline Phosphatase 78 (39-117) U/L Total Protein 7.0 (6.5-8.0) g/dL Albumin 4.0 (3.5-5.0) g/dL Urine Color Dark Yellow Urine Appearance Cloudy Urine pH 5.0 (5.0-9.0) Ur Specific [place] >= 1.030 H (1.005-1.025) Urine Protein Negative (Neg-Trace) mg/dL Urine Glucose (UA) Negative (Negative) mg/dL Urine Ketones Trace (Negative) mg/dL Urine Blood Negative (Negative) Urine Nitrite Negative (Negative) Ur Leukocyte Esterase Negative (Negative) Urine RBC 0-2 (0-2) /HPF Urine WBC 0-5 (0-5) /HPF Ur Squamous Epith Cells 6-10 (0-2) /HPF Urine Bacteria 1+ (None Seen) Hyaline Casts 0-2 (0-2) /LPF Urine Opiates Screen Not Detected (Not Detect) Ur Buprenorphine Scrn Not Detected (Not Detect) ng/mL Ur Oxycodone Screen Not Detected (Not Detect) ng/mL Urine Methadone Screen Not Detected (Not Detect) ng/mL Urine Fentanyl Screen Not Detected (Not Detect) Ur Barbiturates Screen Not Detected (Not Detect) Ur Phencyclidine Scrn POSITIVE H (Not Detect) Ur Amphetamines Screen Not Detected (Not Detect) U Benzodiazepines Scrn Not Detected (Not Detect) Urine Cocaine Screen Not Detected (Not Detect) U Marijuana (THC) Screen POSITIVE H (Not Detect) Ethyl Alcohol < 10 mg/dL Discharge Plan Discharge Clinical Impression: Suicidal ideation, Polysubstance abuse Patient Disposition: Still a Patient Prescriptions: No Action naproxen 500 mg tablet 500 mg PO BID PRN (Reason: pain) 7 Days Qty: 14 0RF Interventions: [place]-Suicide Risk Severity Scale Last Done: 01/14/24 23:59 Print Language: Kazakh
[2024-01-15 00:52] VITALS: BP 115/69; PULSE 99; RESP 16; TEMP 36.7; O2SAT 96
[2024-01-15 01:02] LABS: MANUAL DIFF FLAG NO
[2024-01-15 01:07] LABS: Basophils Percent Auto 0.4 % (0-2); Eosinophils Absolute Auto 0.1 X10*3/uL (0.0-0.4); Hematocrit 37.2 % (37.0-47.0); Hemoglobin 12.5 g/dl (12.0-16.0); Imm Gran Abs Auto 0.02 X10*3/uL (0.00-0.03); Imm Gran Pct Auto 0.2 % (0.0-0.4); Lymphocytes Absolute Auto 3.3 X10*3/uL (1.2-4.9); Lymphocytes Percent Auto 37.3 % (20-40); Mean Corpuscular HGB Conc 33.6 g/dl (31.0-35.0); Mean Corpuscular Hemoglobin 29.1 pg (27.0-33.0); Mean Corpuscular Volume 86.7 fL (80.0-98.0); Mean Platelet Volume 9.2 fL (9.4-12.3); Monocytes Absolute Auto 0.4 X10*3/uL (0.1-1.2); Monocytes Percent Auto 4.5 % (2-11); Neutrophils Absolute Auto 5.1 x10*3/uL (2.0-8.3); Neutrophils Percent Auto 56.6 % (45-73); Platelet Count 353 X10*3/uL (160-400); Red Blood Count 4.29 X10*6/uL (4.20-5.50); Red Cell Distribution Width 13.9 % (11.0-16.0)
[2024-01-15 01:23] LABS: Alanine Aminotransferase 16 U/L (0-31); Alkaline Phosphatase 78 U/L (39-117); Anion Gap 12 (12-20); Aspartate Amino Transferase 16 U/L (5-31); Bilirubin Total 0.3 mg/dL (0.0-1.0); Blood Urea Nitrogen 8 mg/dL (9-16); Calcium 9.1 mg/dL (8.4-10.2); Carbon Dioxide 23 mmol/L (22-29); Chloride 109 mmol/L (96-108); Creatinine Clr Calc Pharmacy 108.4; Estimated Glomerular Filt Rate > 60; Ethanol < 10 mg/dL; Glucose Random 99 mg/dL (60-115); Potassium 3.5 mmol/L (3.3-5.1); Sodium 140 mmol/L (135-145)
[2024-01-15 02:15] VITALS: BP 119/70; PULSE 93; RESP 16; TEMP 36.8; O2SAT 100
[2024-01-15 02:32] LABS: Appearance Urine Cloudy; Color Urine Dark Yellow; Glucose Urine UA Negative (Negative); Leukocyte Esterase Urine Negative (Negative); Nitrite Urine Negative (Negative); Specific Gravity - Urine >= 1.030 (1.005-1.025); Urine Blood Negative (Negative); Urine Ketones Trace mg/dL (Negative); Urine Protein Negative (Neg-Trace)
[2024-01-15 02:37] LABS: Bacteria Urine 1+ (None Seen); Hyaline Casts Urine 0-2 /LPF (0-2); RBC Urine 0-2 /HPF (0-2); WBC Urine 0-5 /HPF (0-5)
[2024-01-15 02:44] LABS: Amphetamine Screen Urine Not Detected (Not Detect); Barbiturates, Urine Not Detected (Not Detect); Benzodiazepines Screen Urine Not Detected (Not Detect); Buprenorphine Scr Not Detected (Not Detect); Cannabinoid Screen Urine POSITIVE (Not Detect); Cocaine Screen Urine Not Detected (Not Detect); Fentanyl, urine Not Detected (Not Detect); Methadone Screen, Urine Not Detected (Not Detect); Opiate Screen Urine Not Detected (Not Detect); Oxycodone Screen Urine Not Detected (Not Detect); Phencyclidine Screen Urine POSITIVE (Not Detect)
[2024-01-15 06:06] VITALS: BP 113/76; PULSE 103; RESP 16; TEMP 36.4; O2SAT 97
[2024-01-15 12:00] VITALS: BP 114/61; PULSE 78; RESP 18; TEMP 36.6; O2SAT 95
--- NOTE | 2024-01-15 12:02 | PC.NURSE ---
vss and up to date at this time. pt has no complaints. denies pain. denies SI/HI. states she is feeling much better compared to yesterday. pt pending care team eval. pt verbalizes being concerned that she is having vaginal discharge x week. white in nature. denies foul smell/dysuria/urgency/frequency. requesting to be tested. provider notified/aware. no sob/wob noted. respirations even/unlabored. 1:1 sitter remains present.
[2024-01-15] MEDS: Doxycycline Monohydrate 100 MG CAPSULE PO (12:46)
[2024-01-15] MEDS: cefTRIAXone sodium 500 MG, Lidocaine HCl 1 % MPF 1 ML IM (12:46)
--- NOTE | 2024-01-15 12:48 | PC.NURSE ---
urine obtained/sent to lab. medication administered per provider order.
--- NOTE | 2024-01-15 13:20 | PC.NURSE ---
pt speaking w/ care team at this time.
--- NOTE | 2024-01-15 14:30 | MHC.RECOVRN ---
Met with pt in ED6 after pt expressed interest in recovery from substances during a CARE team evaluation. Pt reported that she has been using marijuana daily and PCP occasionally when feeling angry and/or out of control . Pt denies alchohol use and/or using other substances other than the aforementioned. Pt reported she is not currently worried about her marijuana use, and that the only thing concerning her is her PCP use. When asked about dose/frequency pt said I really don't use a lot, only occasionally and recently cause I've been feeling so angry lately . Pt reported recent stressors being a 5-year relationship that recently ended after pt found out that her now ex-partner is sleeping with other men. Pt reported that although her mom is worried about her, she feels like she has no support because I can't talk to my mom about these things, I need someone who understands better Pt interest in recovery resources and recovery coaching. Pt not interested in CSS/TSS at the moment but wants a disaster recovery coordinator (prefer: female) Recovery coaching, harm reduction, therapy/counseling information and resources left at bedside with pt to review.
[2024-01-15 15:05] LABS: CT PCR NOT DETECTED (Not Detect.); NG PCR NOT DETECTED (Not Detect.)
[2024-01-15 16:04] VITALS: BP 108/65; PULSE 91; RESP 16; TEMP 36.6; O2SAT 92
[2024-01-15 16:28] VITALS: BP 108/65; PULSE 91; RESP 16; TEMP 36.6; O2SAT 92
--- NOTE | 2024-01-15 16:33 | PC.NURSE ---
belongings obtained in decon prior to discharge.
--- NOTE | 2024-01-18 11:28 | MHC.CARE ---
Referral to CC completed
== END 2024-01-15 16:35 | disposition home or self-care (01) ==
PROVIDERS: Physician Assistant; Emergency Provider Internal Medicine
DX: F19.10 Other psychoactive substance abuse, uncomplicated (principal); R45.851 Suicidal ideations; N89.8 Other specified noninflammatory disorders of vagina; F43.10 Post-traumatic stress disorder, unspecified; F17.210 Nicotine dependence, cigarettes, uncomplicated
CPT/HCPCS: 36415; 80053; 80307; 81001; 85025; 87491; 87591; 96372; 99285; J0696; J2003; S9485

== ENCOUNTER 2024-02-08 22:51 | Emergency (ER) | payer MEDICAID, SELFPAY ==
--- NOTE | ~2024-02-08 | XR_ITS ---
EXAMINATION: XR WRIST, LEFT CLINICAL INFORMATION: Fall. Pain. COMPARISON: None available. TECHNIQUE: PA, lateral, and oblique views of the left wrist. FINDINGS: The bones and soft tissues are normal. No fracture. Alignment is anatomic with normal joint spaces. No erosions or abnormal soft tissue calcifications. XR/XR wrist LT min 3V IMPRESSION: No significant abnormality identified. Electronically signed by: Rick Beckett MD 02/09/2024 05:57 AM [facility]
--- NOTE | ~2024-02-08 | XR_ITS ---
EXAMINATION: XR ELBOW, LEFT CLINICAL INFORMATION: Fall. Pain. COMPARISON: None available. TECHNIQUE: 2 views of the left elbow. FINDINGS: The bone mineralization is normal. The joint spaces are maintained. There is no fracture. Soft tissues are grossly normal. XR/XR elbow LT 2V IMPRESSION: No significant abnormality seen. Electronically signed by: Rick Beckett MD 02/09/2024 05:53 AM EST
--- NOTE | ~2024-02-08 | XR_ITS ---
EXAMINATION: XR SHOULDER, LEFT CLINICAL INFORMATION: Fall. Pain. COMPARISON: None available. TECHNIQUE: AP external rotation, Grashey, scapular Y, and axillary views of the left shoulder. FINDINGS: The bone mineralization is normal. There is a mildly displaced left humeral neck fracture with a component extending through the greater tuberosity. The joint spaces are maintained. No other fracture is seen. The soft tissues are unremarkable. XR/XR shoulder LT min 2V IMPRESSION: Mildly displaced left humeral neck fracture with a component extending through the greater tuberosity. Electronically signed by: Rick Beckett MD 02/09/2024 05:55 AM [facility]
[2024-02-08 23:17] VITALS: BP 122/74; PULSE 92; O2SAT 97
[2024-02-08 23:22] VITALS: BP 100/77; PULSE 99; RESP 18; TEMP 36.3; O2SAT 97; BMI 28.2
[2024-02-09 04:39] VITALS: BP 125/85; PULSE 96; RESP 15; TEMP 36.8; O2SAT 97
--- NOTE | 2024-02-09 04:40 | ED_ITS ---
HPI - Fall General Chief Complaint: Fall Stated Complaint: fall, wrist, hip, elbow pin. no loc or head strike Time Seen by Provider: 02/09/24 04:32 Source: patient and EMS Mode of arrival: EMS Limitations: no limitations History of Present Illness ED Provider: Dr. Cori Nye HPI Narrative: Patient comes to the emergency room complaining of left arm pain, shoulder/elbow/wrist. Patient states that earlier today she was walking her dogs, fell into a hole, landed on the left side of her body. Patient denies hitting her head or losing consciousness. Patient states that she has mild hip pain but is able to tolerated. Related Data Previous Rx's ?Medication ?Instructions ?Recorded naproxen 500 mg tablet 500 mg PO BID PRN pain 7 days #14 03/21/23 tabs doxycycline hyclate 100 mg capsule 100 mg PO BID #20 caps 01/15/24 ibuprofen 600 mg tablet 600 mg PO TID PRN pain #30 tabs 02/09/24 oxycodone 5 mg tablet 5 mg PO BID PRN pain #8 tabs 02/09/24 Allergies Allergy/AdvReac Type Severity Reaction Status Date / Time No Known Allergies Allergy Verified 02/08/24 23:24 [No Known Allergies*] Review of Systems Review of Systems: Constitutional : No Weight loss, No Fever, No Chills, No Night Sweats, No Fatigue, No Malaise ENT/Mouth : No Hearing loss, No Ear Pain, No Nasal Congestion, No Sinus Pain, No Hoarseness, No sore throat, No Rhinorrhea, No Swallowing Difficulty Eyes: No Eye Pain, No Swelling, No Redness, No Foreign Body, No Discharge, No Vision Changes Cardiovascular : No Chest Pain, No SOB, No Dyspnea on Exertion, No Orthopnea, No Edema, No Palpitations Respiratory : No Cough, No Sputum, No Wheezing, No Smoke Exposure, No Dyspnea Gastrointestinal : No Nausea, No Vomiting, No Diarrhea, No Constipation, No abdominal Pain, No Hematochezia, No Melena Genitourinary : no irregular bleeding, No Dysuria, No Urinary Frequency, No Hematuria, No Urinary Incontinence, No Urgency, No Flank Pain, No Urinary Flow Changes, No Hesitancy Musculoskeletal : Complaining of left shoulder pain, left elbow pain, left wrist pain, No Myalgias, No Joint Swelling Skin : No Skin Lesions, No rash Neuro : No Weakness, No Numbness, No Paresthesias, No Loss of Consciousness, No Dizziness, No Headache Psych : No Anxiety/Panic, No Depression, No SI/HI/AH/VH, No Social Issues, Heme/Lymph: No Bruising, No Bleeding,No Lymphadenopathy Endocrine : No Polyuria, No Polydipsia, No Temperature Intolerance PMF Past Medical History Medical History PTSD (post-traumatic stress disorder) Substance abuse Social History Social History Household Members: Other Household Members Other:: mother Housing: House Do you presently have visiting nurse or other home services: No Alcohol intake: current Alcohol intake frequency: holidays/special occasions only Alcohol type: wine Patient Tobacco Use Status: Current everyday Tobacco user Tobacco use type: Cigarette Cigarettes Per Day: 7 Smoked in Last 30 Days: Yes Second Hand Smoke Exposure: No Use of substances other than those prescribed or required for medical reasons: Yes Substance Use Type: Marijuana Substance Use Frequency: Daily Last Used Substance: Days (ago) Any prior treatment program specific to substance use: No Advance Directives: No Advance Directives Information Provided: Yes Do you have a plan to hurt others: No Plan service: No 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 Oriented X3. No acute distress. Eyes: Pupils equal, round and reactive to light. ENT: Pharynx normal. Neck: Normal inspection. Neck supple. No lymph nodes noted. No crepitus CVS: Normal heart rate and rhythm. Pulses normal. Normal S1 and S2 Respiratory: No respiratory distress. Breath sounds normal. No Wheezing. No rales Abdomen: Soft and nontender. No rigidity. No distention. Skin: Skin warm and dry. Normal skin color. Normal skin turgor. Extremities: No lower extremity edema. Patient has left arm is in a sling from EMS. Patient unwilling to move the arm/abduct the arm due to pain Neuro: Oriented X 3. No motor deficit. No sensory deficit. Moving all extremities. No slurred speech. CN 2 through 12 grossly intact Psych: calm, cooperative, normal affect Medications Administered Discontinued Medications Generic Name Dose Route Start Last Admin Trade Name Freq PRN Reason Stop Dose Admin Oxycodone HCl 5 mg 02/09/24 05:01 02/09/24 05:26 Oxycodone Hcl Immed Release 5 Mg Tablet PO 02/09/24 05:02 5 mg ONCE ONE Administration Medical Decision Making Medical Decision Making MDM Narrative: My interpretation of x-ray of the humerus: Humeral fracture with slight displacement. -patient was given oxycodone p.o. for pain medication, feeling better but has pain anytime she moves. -patient was given the phone number for Orthopedics. -a sling has been given to the patient. Differential Diagnosis Differential Diagnoses: The differential diagnosis associated with the p resentation includes (Shoulder/elbow/wrist contusion, fracture, dislocation) Shoulder contusion, fracture, dislocation Admission/Observation Consideration of admission/observation: Escalation of care including admission/observation considered (Given patient's presentation, observation was considered) Independent Interpretation I performed an independent interpretation of an: Plain X-Ray Radiology Impression Discussion of test interpretation with radiology: I have reviewed the radiologist's reading. Radiologist Impression: The bone mineralization is normal. There is a mildly displaced left humeral neck fracture with a component extending through the greater tuberosity. The joint spaces are maintained. No other fracture is seen. The soft tissues are unremarkable. XR/XR shoulder LT min 2V IMPRESSION: Mildly displaced left humeral neck fracture with a component extending through the greater tuberosity. Discharge Plan Discharge Clinical Impression: Fx humeral neck Patient Disposition: Home, Self-Care Instructions: Arm Fracture in Adults (ED), How to Use a Sling (ED) Additional Instructions: Please follow-up with your primary care physician tomorrow. If you have any worsening or new symptoms, please return to the emergency room or call 911 Prescriptions: New ibuprofen 600 mg tablet 600 mg PO TID PRN (Reason: pain) Qty: 30 0RF oxycodone 5 mg tablet 5 mg PO BID PRN (Reason: pain) Qty: 8 0RF Rx Instructions: Partial Fill upon patient request. No Action naproxen 500 mg tablet 500 mg PO BID PRN (Reason: pain) 7 Days Qty: 14 0RF doxycycline hyclate 100 mg capsule 100 mg PO BID Qty: 20 0RF Referrals: Carlos Bowles MD [Physician] - 02/10/24 Print Language: Greenlandic
[2024-02-09] MEDS: oxyCODONE HCl Immed Release 5 MG TABLET PO (05:26)
[2024-02-09 05:28] VITALS: BP 125/85; PULSE 96; RESP 15; TEMP 36.8; O2SAT 97
[2024-02-09 06:27] VITALS: BP 118/84; PULSE 78; RESP 16; TEMP 36.4; O2SAT 94
[2024-02-09 07:46] VITALS: BP 118/84; PULSE 78; RESP 16; TEMP 36.4; O2SAT 94
== END 2024-02-09 07:47 | disposition home or self-care (01) ==
PROVIDERS: Emergency Provider Emergency Medicine
DX: S42.212A Unspecified displaced fracture of surgical neck of left humerus, initial encounter for closed fracture (principal); W17.2XXA Fall into hole, initial encounter; M25.512 Pain in left shoulder; M25.522 Pain in left elbow; M25.532 Pain in left wrist; Y93.K1 Activity, walking an animal; Y92.9 Unspecified place or not applicable; Y99.9 Unspecified external cause status; F17.210 Nicotine dependence, cigarettes, uncomplicated; F12.90 Cannabis use, unspecified, uncomplicated
CPT/HCPCS: 73030; 73070; 73110; 99284

== ENCOUNTER 2024-02-28 10:23 | Outpatient (REF) | payer MEDICAID, SELFPAY | END 2024-02-28 10:24 | disposition home or self-care (01) | LOC: HO.HOSX 10:23 | PROVIDERS: Visit Provider Physician Assistant | DX: Z13.89 Encounter for screening for other disorder (principal) ==

== ENCOUNTER 2024-03-21 23:07 | Emergency (ER) | payer MEDICAID, SELFPAY ==
--- NOTE | ~2024-03-21 | XR_ITS ---
EXAMINATION: XR SHOULDER, LEFT CLINICAL INFORMATION: shoulder pain post fall 1 month ago COMPARISON: February 09, 2024 TECHNIQUE: AP external rotation, Grashey, scapular Y, and axillary views of the left shoulder. FINDINGS: The bony structures are osteopenic. There is again seen a comminuted minimally displaced fracture involving the humeral neck and greater tuberosity of the left humerus. There is no dislocation. The soft tissues are unremarkable. XR/XR shoulder LT min 2V IMPRESSION: Comminuted minimally displaced fracture of the humeral neck and greater tuberosity of the left humerus without significant interval change. Electronically signed by: Rick Beckett MD 03/22/2024 04:21 AM [facility]
--- NOTE | ~2024-03-21 | XR_ITS ---
EXAMINATION: XR SHOULDER, LEFT CLINICAL INFORMATION: Post reduction. COMPARISON: 02/09/2024 TECHNIQUE: Single view of the left shoulder. FINDINGS: There has been interval reduction of previously noted comminuted minimally displaced fracture involving the humeral neck and greater tuberosity of the humerus with some evidence of interval bridging callus formation, although fracture lines are still faintly visible. XR/XR shoulder LT 1V IMPRESSION: Status post reduction of previously noted comminuted fracture of humeral neck and greater tuberosity with evidence of healing. This study was presented today to March 22, 2024 for interpretation. Stat results provided at this time as requested by referring provider. Electronically signed by: Roxana Tamayo MD 03/22/2024 08:58 AM [facility]
[2024-03-21 23:17] VITALS: BP 140/100; PULSE 96; O2SAT 97
[2024-03-21 23:19] VITALS: BP 108/77; PULSE 95; RESP 18; TEMP 36.7; O2SAT 97; BMI 28.3
[2024-03-22 00:17] VITALS: BP 96/54; PULSE 78; RESP 16; TEMP 36.7; O2SAT 98
[2024-03-22 02:09] VITALS: BP 96/66; PULSE 92; RESP 16; TEMP 36.8; O2SAT 97
[2024-03-22] MEDS: oxyCODONE HCl Immed Release 5 MG TABLET 10 MG PO (02:37)
--- NOTE | 2024-03-22 02:54 | ED.EXTPRO ---
HPI - Extremity Problem General Chief complaint: Extremity Injury, Upper Stated complaint: L shoulder pain Time Seen by Provider: 03/22/24 02:18 Source: patient Mode of arrival: ambulatory Limitations: no limitations History of Present Illness ED Provider: HPI Narrative: Patient is status post humerus neck fracture on 02/08 was trying to reach with the hand yesterday it popped out had happened multiple times when she came it was outside the joint x-ray was done which showed anterior dislocation but at the time of examination it was back in position patient has not seen any orthopedics yet Related Data Previous Rx's ?Medication ?Instructions ?Recorded naproxen 500 mg tablet 500 mg PO BID PRN pain 7 days #14 03/21/23 tabs doxycycline hyclate 100 mg capsule 100 mg PO BID #20 caps 01/15/24 ibuprofen 600 mg tablet 600 mg PO TID PRN pain #30 tabs 02/09/24 oxycodone 5 mg tablet 5 mg PO BID PRN pain #8 tabs 02/09/24 ibuprofen 600 mg tablet 600 mg PO Q6H PRN fever or pain 03/22/24 #30 tabs Allergies Allergy/AdvReac Type Severity Reaction Status Date / Time No Known Allergies Allergy Verified 03/21/24 23:20 [No Known Allergies*] Review of Systems Review of Systems: Yes all other systems are reviewed and are negative PMFSH Past Medical History Medical History PTSD (post-traumatic stress disorder) Substance abuse Social History Social History Household Members: Other Household Members Other:: mother Housing: House Do you presently have visiting nurse or other home services: No Alcohol intake: current Alcohol intake frequency: holidays/special occasions only Alcohol type: wine Patient Tobacco Use Status: Current everyday Tobacco user Tobacco use type: Cigarette Cigarettes Per Day: 7 Smoked in Last 30 Days: Yes Second Hand Smoke Exposure: No Use of substances other than those prescribed or required for medical reasons: No Substance Use Type: Marijuana Advance Directives: No Do you have a plan to hurt others: No Plan Patient : No service: No 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 Oriented X3. No acute distress. ENT: Pharynx normal. Oral Mucosa moist Neck: Normal inspection. Neck supple. CVS: Normal heart rate and rhythm. Pulses normal. Respiratory: No respiratory distress. Equal air entry bilateral, no wheezing/rales/rhonchi Skin: Skin warm and dry. Normal skin color. Normal skin turgor. Extremities: No lower extremity edema. Left shoulder normal contour tenderness at the upper end of humerus neurovascular intact Neuro: Oriented X 3. Medications Administered Discontinued Medications Generic Name Dose Route Start Last Admin Trade Name Freq PRN Reason Stop Dose Admin Oxycodone HCl 10 mg 03/22/24 02:25 03/22/24 02:37 Oxycodone Hcl Immed Release 5 Mg Tablet PO 03/22/24 02:26 10 mg ONCE ONE Administration Medical Decision Making Medical Decision Making [facility] Narrative: Sling and swath was given to the patient likely patient has minor anterior left humerus with spontaneous reduction Radiology Impression Discussion of test interpretation with radiology: I have reviewed the radiologist's reading. Radiologist Impression: [place] [id number] XRay Report Signed Patient: Terrie Avendano MR#: [id number] : 1980 Acct:[id number] Age/Sex: 43 / F ADM Date: 03/22/24 Loc: HO.ED Attending Dr: Ordering Physician: Georgi Landrum MD Date of Service: 03/22/24 Procedure(s): XR shoulder LT 1V Accession Number(s): [id number] cc: Physician,None ; Georgi Landrum MD~ EXAMINATION: XR SHOULDER, LEFT CLINICAL INFORMATION: Post reduction. COMPARISON: 02/09/2024 TECHNIQUE: Single view of the left shoulder. FINDINGS: There has been interval reduction of previously noted comminuted minimally displaced fracture involving the humeral neck and greater tuberosity of the humerus with some evidence of interval bridging callus formation, although fracture lines are still faintly visible. XR/XR shoulder LT 1V IMPRESSION: Status post reduction of previously noted comminuted fracture of humeral neck and greater tuberosity with evidence of healing. This study was presented today to March 22, 2024 for interpretation. Stat results provided at this time as requested by referring provider. Electronically signed by: Roxana Tamayo MD 03/22/2024 08:58 AM [facility] Discharge Plan Discharge Clinical Impression: Anterior dislocation of left shoulder Qualifiers: Encounter type: initial encounter Qualified Code(s): S43.015A - Anterior dislocation of left humerus, initial encounter Patient Disposition: Home, Self-Care Instructions: Shoulder Dislocation (ED), How to Use a Sling (ED) Additional Instructions: Wear the sling for support Ibuprofen for pain Follow with orthopedic Prescriptions: New ibuprofen 600 mg tablet 600 mg PO Q6H PRN (Reason: fever or pain) Qty: 30 0RF No Action naproxen 500 mg tablet 500 mg PO BID PRN (Reason: pain) 7 Days Qty: 14 0RF doxycycline hyclate 100 mg capsule 100 mg PO BID Qty: 20 0RF ibuprofen 600 mg tablet 600 mg PO TID PRN (Reason: pain) Qty: 30 0RF oxycodone 5 mg tablet 5 mg PO BID PRN (Reason: pain) Qty: 8 0RF Rx Instructions: Partial Fill upon patient request. Referrals: Benito Koenig MD [Physician] - 1 week Interventions: ED Discharge Assessment Last Done: 03/22/24 03:08 Discharge Date/Time: 03/22/24 03:09 Print Language: Azeri
[2024-03-22 03:08] VITALS: BP 96/66; PULSE 92; RESP 16; TEMP 36.8; O2SAT 97
== END 2024-03-22 03:09 | disposition home or self-care (01) ==
PROVIDERS: Emergency Provider Internal Medicine
DX: S43.015A Anterior dislocation of left humerus, initial encounter (principal); M25.512 Pain in left shoulder; F17.210 Nicotine dependence, cigarettes, uncomplicated; X58.XXXA Exposure to other specified factors, initial encounter; Y93.89 Activity, other specified; Y92.89 Other specified places as the place of occurrence of the external cause; Y99.8 Other external cause status
CPT/HCPCS: 73020; 73030; 99283; 99284

== ENCOUNTER 2024-03-24 08:41 | Outpatient (AMB) | payer MEDICAID, SELFPAY ==
--- NOTE | 2024-03-24 09:02 | A.OFFVIS_ITS ---
Intake Visit Reasons: FC-Fx humeral neck, left side-ED F/U Intake Note: Terrie is a 43 year old right hand dominant female who presents today for a evaluation of her left humerus neck fracture on 02/08 was trying to reach with the hand the day after and she felt it popped out had happened multiple times. She metions that she was waling her dog and she slipped and fell on a ditch running away from a skunk. Patient is having a lot of pain and she is unable to move. She states that she is not taking anything for the pain at the moment. Allergies No Known Allergies [No Known Allergies*] Allergy (Verified 03/24/24 09:06) HPI HPI FC-Fx humeral neck, left side-ED F/U: Details: 43-year-old [id number] female who presents in the office today, as a new patient, for an evaluation of left humeral neck fracture. The patient presented to the ED on 02/08/24, status post a fall into a hole and landed on her left side while walking her dogs. X-rays of the left shoulder were obtained. She was prescribed ibuprofen 600 mg PO TID PRN and oxycodone 5 mg PO BID PRN. She returned to the ED on 03/22/24 status post; she felt her left shoulder pop out 03/21/24 when trying to reach with her left upper extremity. X-rays were obtained, which revealed left shoulder dislocation. Therefore, shoulder reduction was performed in the ER. She was provided with the sling for support and prescribed ibuprofen 600 mg PO Q6H. While in the office today, the patient reports experiencing severe pain, and she is unable to move her left upper extremity. She confirms the patient on 02/08/24 when she slipped and fell in a ditch running away from a skunk while walking with her dog. She mentions she has not tried anything for the pain at the moment. [facility] Medical History PTSD (post-traumatic stress disorder) Substance abuse Social History (Updated 03/24/24 @ 09:07 by Eleni Howe) Household Members: Other Household Members Other:: mother Housing: House Do you presently have visiting nurse or other home services: No Alcohol intake: current Alcohol intake frequency: holidays/special occasions only Alcohol type: wine Patient Tobacco Use Status: Current everyday Tobacco user Tobacco use type: Cigarette Cigarettes Per Day: 7 Second Hand Smoke Exposure: No Substance Use Type: Marijuana service: No Current occupational status: unemployed 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 No ecchymosis, erythema or edema. Forward flexion and abduction to 30 degrees. Able to perform thumbs up. Denies any numbness or tingling. Radial pulse is intact. Office Procedures AMB Fracture Care Fracture Billing Code: Fracture Billing Code Assessment & Plan Assessment & Plan (1) Fracture of proximal end of left humerus: Code(s): S42.202A - Unspecified fracture of upper end of left humerus, initial encounter for closed fracture Category: Medical Plan Ms. Avendano is a 43-year-old [id number] female who presents in the office today, as a new patient, for an evaluation of left humeral neck fracture. The patient presented to the ED on 02/08/24, status post a fall into a hole and landed on her left side while walking her dogs. X-rays of the left shoulder were obtained. She was prescribed ibuprofen 600 mg PO TID PRN and oxycodone 5 mg PO BID PRN. She returned to the ED on 03/22/24 status post; she felt her left shoulder pop out 03/21/24 when trying to reach with her left upper extremity. X- rays were obtained, which revealed left shoulder dislocation. Therefore, shoulder reduction was performed in the ER. She was provided with the sling for support and prescribed ibuprofen 600 mg PO Q6H. While in the office today, the patient reports experiencing severe pain, and she is unable to move her left upper extremity. She confirms the patient on 02/08/24 when she slipped and fell in a ditch running away from a skunk while walking with her dog. She mentions she has not tried anything for the pain at the moment. The patient should discontinue the sling at this time. The patient?s injury occurred 6 weeks ago; therefore, I have placed a STAT order for physical therapy to begin working on gentle range of motion as soon as possible. Follow-up will be in 4 weeks with repeat x-rays, or sooner if needed. X-rays of the left shoulder, which were obtained while in the office today and were reviewed by me, Veronica Acuña PA-C, revealed: Proximal humerus fracture. X-rays of the left shoulder, obtained on 02/09/24, revealed: Mildly displaced left humeral neck fracture with a component extending through the greater tuberosity. X-rays of the left shoulder, obtained on 03/22/24, revealed: Comminuted minimally displaced fracture of the humeral neck and greater tuberosity of the left humerus without significant interval change. X-rays of the left shoulder (Post reduction), obtained on 03/22/24, revealed: Status post reduction of previously noted comminuted fracture of humeral neck and greater tuberosity with evidence of healing. Orders: Orders PT Evaluation and Treatment Today S4 - Unspecified fracture of upper end of left humerus, initial encounter for closed fracture XR shoulder LT min 2V Today M25.519 - Pain in unspecified shoulder Patient Instructions: Scribed by Sadie James, medical collector, for Veronica Acuña PA-C on 03/24/24 at 8:59 am EST. Coding Level of Care Code Est Pt Level 4 (87942) Complex EM visit Add On G2211 Diagnoses Fracture of proximal end of left humerus S42A CPT Codes Fracture Care - Fracture Billing Code: Fracture Billing Code ([id number])
== END 2024-03-24 09:25 | disposition home or self-care (01) ==
PROVIDERS: Visit Provider Physician Assistant
DX: S42.202A Unspecified fracture of upper end of left humerus, initial encounter for closed fracture (principal)
CPT/HCPCS: 99213

== ENCOUNTER 2024-03-24 08:44 | Outpatient (REF) | payer MEDICAID, SELFPAY ==
--- NOTE | ~2024-03-24 | XR_ITS ---
EXAMINATION: XR SHOULDER LEFT CLINICAL INFORMATION: Pain in unspecified shoulder M25.519. COMPARISON: XR Left shoulder 03/22/2024 TECHNIQUE: AP neutral and transscapular Y views of the left shoulder. FINDINGS: Proximal humerus fracture redemonstrated without change in appearance and alignment. Surrounding bone and soft tissues unremarkable XR/XR shoulder LT min 2V IMPRESSION: Proximal humerus fracture redemonstrated without change in appearance and alignment. Electronically signed by: Antonio Will MD 03/26/2024 09:49 AM [facility]
== END 2024-03-24 08:45 | disposition home or self-care (01) ==
LOC: HO.HOSX 08:44
PROVIDERS: Visit Provider Physician Assistant
DX: M25.512 Pain in left shoulder (principal); S42.202A Unspecified fracture of upper end of left humerus, initial encounter for closed fracture
CPT/HCPCS: 73030; 99212

== ENCOUNTER 2024-04-21 08:35 | Outpatient (REF) | payer MEDICAID, SELFPAY ==
--- NOTE | ~2024-04-21 | XR_ITS ---
EXAMINATION: XR SHOULDER 2 OR MORE VIEWS LEFT HISTORY: M25.519 - Pain in unspecified shoulder COMPARISON: Comparison is made with the prior examination dated 03/24/2024. FINDINGS: Three views of the left shoulder are submitted. Osseous mineralization is normal. Again seen is a nondisplaced fracture of the surgical neck of the humerus. There has been blurring of fracture margins consistent with healing. The glenohumeral and acromioclavicular joint spaces are preserved. The soft tissues are unremarkable. XR/XR shoulder LT min 2V IMPRESSION: Healing fracture of the surgical neck of the humerus. Electronically signed by: Dorian Gaming MD 04/24/2024 02:22 PM EST
== END 2024-04-21 08:36 | disposition home or self-care (01) ==
LOC: HO.HOSX 08:35
PROVIDERS: Visit Provider Physician Assistant
DX: M25.512 Pain in left shoulder (principal); S42.202A Unspecified fracture of upper end of left humerus, initial encounter for closed fracture
CPT/HCPCS: 73030; 99212

== ENCOUNTER 2024-04-21 10:02 | Outpatient (AMB) | payer MEDICAID, SELFPAY ==
--- NOTE | 2024-04-21 10:24 | MHC.OFFVIS ---
Intake Visit Reasons: OV- 4 wk f/u LT humeral neck fx DOI 02/09/24 Intake Note: Terrie is a 43 year old right hand dominant female who presents today for a follow up of her left humerus neck fracture on 02/09/24. Patient reports she is feeling a bit better, however she is still feeling pain. She states that she is unable to do anything over head or when she does any sudden movements she has sharp pain. Allergies No Known Allergies [No Known Allergies*] Allergy (Verified 04/21/24 10:29) HPI HPI OV- 4 wk f/u LT humeral neck fx DOI 02/09/24: Details: Ms. Juan Alberto Falcon is a 43-year-old right hand dominant female who presents today for a follow up of her left humerus neck fracture on 02/09/24. Patient reports she is feeling a bit better, however she is still having pain. She states that she is unable to do anything over head or sharp movements. She has not been able to attend any physical therapy sessions. Patient reports primary care physician and that is why she can not obtain a referral for physical therapy visits. FORMERLY [facility], [facility] Medical History PTSD (post-traumatic stress disorder) Substance abuse Social History Household Members: Other Household Members Other:: mother Housing: House Do you presently have visiting nurse or other home services: No Alcohol intake: current Alcohol intake frequency: holidays/special occasions only Alcohol type: wine Patient Tobacco Use Status: Current everyday Tobacco user Tobacco use type: Cigarette Cigarettes Per Day: 7 Second Hand Smoke Exposure: No Substance Use Type: Marijuana service: No Current occupational status: unemployed 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 Able to reach the side of her face. Able to perform wrist flexion-extension. NVI. Assessment & Plan Assessment & Plan (1) Fracture of proximal end of left humerus: Code(s): S42.A - Unspecified fracture of upper end of left humerus, initial encounter for closed fracture Category: Medical Plan Ms. Juan Alberto Falcon is a 43-year-old right hand dominant female who presents today for a follow up of her left humerus neck fracture on 02/09/24. Patient reports she is feeling a bit better, however she is still having pain. She states that she is unable to do anything over head or sharp movements. She has not been able to attend any physical therapy sessions. Patient reports primary care physician and that is why she can not obtain a referral for physical therapy visits. Unfortunately the patient is unable to attend any outpatient physical therapy at this time because she is unable to obtain a referral from a PCP. She is currently working on trying to obtain a PCP. In the meantime I did demonstrate exercises to the patient in the office today including wall climbing and pendulums. I encouraged her to perform these exercises multiple times per day. She will follow up in 6 weeks with repeat x-rays, sooner if needed. X-rays of the left shoulder were obtained in the office today were reviewed by me in reveal routine healing left proximal humerus fracture. Orders: Orders XR shoulder LT min 2V Today M25.519 - Pain in unspecified shoulder Coding Level of Care Code Est Pt Level 3 (65644) Diagnoses Fracture of proximal end of left humerus S42.A
== END 2024-04-21 10:43 | disposition home or self-care (01) ==
PROVIDERS: Visit Provider Physician Assistant
DX: S42.202A Unspecified fracture of upper end of left humerus, initial encounter for closed fracture (principal)
CPT/HCPCS: 99213

== ENCOUNTER 2024-06-09 09:34 | Outpatient (REF) | payer MEDICAID, SELFPAY ==
--- OUTSIDE RECORDS SUMMARY | 2024-06-12 10:21 | XMS_ITS | Clinical Summary ---
Author Organization [facility] Address [address] [place] [address] Care Team Providers Care Commissioner Of Internal Revenue Name Role Phone Unavailable Primary Care Provider Unavailabl e Social History Tobacco Use Types Packs/Day Years Used Date Smoking Tobacco: Never Assessed Comments Unknown Sex and Gender Information Value Date Recorded Sex Assigned at Female 02/02/2022 10:18 AM EDT Legal Sex Female 10:18 AM EDT Gender Identity Female 02/02/2022 10:18 AM EDT Sexual Orientation Straight 02/02/2022 10 :18 AM EDT Plan of Treatment Health Maintenance Due Date Last Done Comments Depression Screening 1982 HIV Screening 1982 SDOH Screening 1982 Alcohol/Substance Use Screening 1994 Tobacco Screening 1994 Family Planning (PISQ) 1997 Hepatitis C Screening 2000 Hepatitis B Vaccines (1 of 3 - 19+ 3-dose series) 2001 Pap Smear 08/19/2003 Cervical Cancer Screening 2012 HPV/Cotest 2012 Mammogram 2022 COVID-19 Vaccine (4 - 2023-2 5 season) 2023 07/22/2021, 01/27/2021, 01/06/2021 Influenza Vaccine (#1) 2023 DTaP/Tdap/Td Vaccines (2 - T d or Tdap) 06/07/2032 06/07/2022 Zoster Vaccines (1 of 2) 2032 RSV Patients and Patients Aged 60 years or older (1 - 1-dose 75+ series) 2057 HIB Vaccines Aged Out No longer eligi ble based on patient's age to complete this topic HPV Vaccines Aged Out No longer eligi ble based on patient's age to complete this topic Hepatitis A Vaccines Aged Out No long er eligible based on patient's age to complete this topic IPV Vaccines Aged Out No longer eligi ble based on patient's age to complete this topic Meningococcal Vaccine Aged Out No carolyn kayode eligible based on patient's age to complete this topic Pneumococcal Vaccine: Pediatrics (0 to 5 Years) and At-Risk Patients (6 to 49) Years) Aged Out No longer eligible b ased on patient's age to complete this topic RSV under 20 months Aged Out No longe r eligible based on patient's age to complete this topic Rotavirus Vaccines Aged Out No longer eligible based on patient's age to complete this topic Insurance C3
== END 2024-06-09 09:35 | disposition home or self-care (01) ==
LOC: HO.HOSX 09:34
PROVIDERS: Visit Provider Physician Assistant
DX: Z13.89 Encounter for screening for other disorder (principal)

== ENCOUNTER 2024-06-14 12:40 | Outpatient (REF) | payer MEDICAID, SELFPAY ==
--- OUTSIDE RECORDS SUMMARY | 2024-06-15 15:58 | XMS_ITS | Clinical Summary ---
Author Organization [facility] Address [address] [place] [address] Care Team Providers Care Harvest Manager Name Role Phone Unavailable Primary Care Provider [...]
== END 2024-06-14 12:41 | disposition home or self-care (01) ==
LOC: HO.HOSX 12:40
PROVIDERS: Visit Provider Physician Assistant
DX: Z13.89 Encounter for screening for other disorder (principal)

== ENCOUNTER 2024-08-29 19:59 | Emergency (ER) | payer MEDICAID, SELFPAY ==
--- NOTE | ~2024-08-29 | XR_ITS ---
EXAMINATION: XR CHEST CLINICAL INFORMATION: weakness COMPARISON: November 19, 2017 TECHNIQUE: Frontal view of the chest was obtained. FINDINGS: Mild prominence of the interstitial markings. No consolidation, pleural effusion or pneumothorax. Cardiomediastinal silhouette size is normal. Mild S-shaped curvature of the thoracic spine. Patient's large body habitus. XR/XR chest 1V IMPRESSION: Acute small airway inflammatory disease in the correct clinical settings. Electronically signed by: Edgar Garnica MD 08/30/2024 09:46 AM EDT
--- NOTE | ~2024-08-29 | CT_ITS ---
CLINICAL HISTORY: Left facial swelling rule out neck mass CT soft tissue neck with contrast Comparison: None Findings: Induration within the subcutaneous fat in the left pre maxillary region extending into the left pre mental and left submental region. No discrete fluid collection seen to suggest abscess. No discrete mass lesion. Mildly prominent jugular lymph nodes appear reactive in nature. No bony destructive changes seen. No definitive dental abscess is evident. No air-fluid levels within the paranasal sinuses. 15 mm mucous retention cyst within the right maxillary sinus. Globes are intact. No postseptal induration. Upper airway is patent. No apical infiltrate or apical pneumothorax. No acute fractures. IMPRESSION: Left-sided facial subcutaneous induration as above without abscess, mass lesion, or osteomyelitis This document has been electronically signed by: Nick Lowry MD on 08/30/2024 05:30:06
[2024-08-29 20:08] VITALS: BP 120/75; BP 126/94; PULSE 120; PULSE 125; RESP 18; TEMP 37.1; O2SAT 98; BMI 25.8
--- NOTE | 2024-08-29 20:10 | ED.ALLEREA ---
HPI - Allergic Reaction General Chief complaint: General Medical Stated complaint: allergic reaction, swelling pain palpatations Time Seen by Provider: 08/29/24 23:23 Source: patient Mode of arrival: ambulatory Limitations: no limitations History of Present Illness ED Provider: Dr. Ez Rodriguez HPI narrative: 44-year-old female history of PTSD who presents emergency department for evaluation of left facial pain that started yesterday and swelling of her left face that started this morning. The patient states that she is also having pain in the gums in the left side of her mouth. She denied fever, chills, rhinorrhea, sore throat, cough, chest pain, shortness of breath, dyspnea on exertion, nausea, vomiting, diarrhea. She has not noticed any easy bruisability, bleeding from her mouth, dark stools or bloody stools. She denied night sweats. She denied weight loss or weight gain. She does not take any medications. Related Data Home Medications ?Medication ?Instructions ?Recorded ?Confirmed No Known Home Meds 08/30/24 08/30/24 Allergies Allergy/AdvReac Type Severity Reaction Status Date / Time No Known Allergies Allergy Verified 08/29/24 20:09 [No Known Allergies*] Review of Systems Review of Systems: Yes all other systems are reviewed and are negative [facility] Past Medical History [facility] Narrative: Social history: She smokes 6 cigarettes per day times many years. She denies alcohol use. She occasionally smokes marijuana. She denies drug use. 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 Sexual orientation: Straight/Heterosexual Physical Exam ED Vital Signs: Vital Signs - 24 hr 08/29/24 23:26 08/30/24 01:40 08/30/24 01:58 Temperature 98.6 F Pulse Rate 113 H 103 H Respiratory Rate 28 H Blood Pressure 124/78 123/82 121/78 Pulse Oximetry 98 Oxygen Delivery Method Room Air Oxygen Flow Rate 08/30/24 02:36 08/30/24 04:00 08/30/24 04:00 Temperature 99.0 F Pulse Rate 103 H Respiratory Rate 19 Blood Pressure 114/83 Pulse Oximetry 93 87 L 96 Oxygen Delivery Method Room Air Room Air Nasal Cannula Oxygen Flow Rate 2 08/30/24 06:46 08/30/24 09:56 08/30/24 12:56 Temperature 98.9 F 98.2 F Pulse Rate 106 H 92 96 Respiratory Rate 20 14 20 Blood Pressure 118/72 110/72 110/66 Pulse Oximetry 99 100 100 Oxygen Delivery Method Nasal Cannula Nasal Cannula Nasal Cannula Oxygen Flow Rate 2 2 2 08/30/24 14:38 08/30/24 17:43 08/30/24 19:42 Temperature 98.3 F 98.3 F Pulse Rate 102 H 94 112 H Respiratory Rate 22 H 18 18 Blood Pressure 106/67 103/65 109/60 Pulse Oximetry 100 100 98 Oxygen Delivery Method Nasal Cannula Nasal Cannula Room Air Oxygen Flow Rate 2 2 BMI result Body Mass Index 25.8 Vital signs were normal Exam: General: Awake, alert in no distress Head: Normocephalic, atraumatic, patient's face is asymmetric and does have swelling in the left side of her face, she does have tenderness palpation over this area of swelling especially over the upper and lower jaw EENT: PERRL, Lids normal, sclera normal, conjunctiva normal, nose normal , ears normal, mouth: without erythema or exudates, moist membranes, no obvious dental caries, tenderness palpation of the left gingiva with no significant swelling or abscess noted Neck: Supple, no adenopathy Lung: breath sounds symmetric, no wheezing, rales or rhonchi Chest: symmetric movement, nontender Heart: regular rate and rhythm, normal S1, S2 no murmurs or rubs Abdomen: soft, non-tender, nondistended, normal bowel sounds Back: no vertebral tenderness, no CVAT Extremities: no deformities, moves all extremities symmetrically Neuro: Awake, alert, oriented, normal speech, cranial nerves intact, moves all extremities symmetrically Psych: Pleasant, cooperative Course Course Course Narrative: This is a Rapid Medical Exam performed in triage by Melonie Ortega PA-C. Full HPI, ROS and PE to be performed by primary ED provider. 44 yo F w/pmhx PTSD, substance abuse, presenting to the ED c/o left sided facial pain x yesterday & facial swelling x today. denies new exposures including soap/lotion/detergent/meds. Took Benadryl 4hrs ago. Denies dental procedures. PE: +mild L sided facial swelling. poor dentition. +L lower molar ttp - difficult to examine Plan: labs Medications Administered Discontinued Medications Generic Name Dose Route Start Last Admin Trade Name Emeli PRN Reason Stop Dose Admin Allopurinol 300 mg 08/30/24 07:08 08/30/24 08:52 Allopurinol 300 Mg Tablet PO 08/30/24 07:09 300 mg ONCE ONE Administration Cefepime HCl 2 gm in 50 mls @ 100 mls/hr 08/29/24 23:49 08/30/24 00:40 Maxipime IV 08/30/24 00:18 Infused ONCE ONE Infusion Sodium Chloride 1,000 mls @ 999 mls/hr 08/29/24 23:49 08/30/24 01:40 Ns IV 08/30/24 00:49 Infused .Q1H1M STA Infusion Lactated Ringer's 1,000 mls @ 250 mls/hr 08/30/24 07:15 08/30/24 20:14 Lr IVCONT 250 mls/hr .Q4H BERNIE Administration Cefepime HCl 2 gm in 50 mls @ 100 mls/hr 08/30/24 08:00 08/30/24 19:41 Maxipime IV Infused Q8H BERNIE Infusion Iohexol 85 ml 08/30/24 01:43 08/30/24 01:44 Iohexol 350 Mg/Ml 100 Ml Infus..Btl IV 08/30/24 01:44 85 ml ONCE ONE Administration Morphine Sulfate 4 mg 08/29/24 23:49 08/30/24 00:09 Morphine Sulfate 4 Mg/Ml Cartridge IVPUSH 08/29/24 23:50 4 mg ONCE STA Administration Protocol Morphine Sulfate 4 mg 08/30/24 01:09 08/30/24 01:15 Morphine Sulfate 4 Mg/Ml Cartridge IVPUSH 08/30/24 01:10 4 mg ONCE STA Administration Protocol Morphine Sulfate 4 mg 08/30/24 14:42 08/30/24 14:51 Morphine Sulfate 4 Mg/Ml Cartridge IVPUSH 08/30/24 14:43 4 mg ONCE ONE Administration Protocol Ondansetron HCl 4 mg 08/29/24 23:49 08/30/24 00:09 Ondansetron Hcl 4 Mg/2 Ml Vial IVPUSH 08/29/24 23:50 4 mg ONCE ONE Administration Medical Decision Making Medical Decision Making [facility] Narrative: 44-year-old female history of PTSD who presents emergency department for evaluation of left facial pain that started yesterday and swelling of her left face that started this morning. The patient states that she is also having pain in the gums in the left side of her mouth. She denied fever, chills, rhinorrhea, sore throat, cough, chest pain, shortness of breath, dyspnea on exertion, nausea, vomiting, diarrhea. She has not noticed any easy bruisability, bleeding from her mouth, dark stools or bloody stools. She denied night sweats. She denied weight loss or weight gain. She does not take any medications. Vital signs revealed an elevated heart rate otherwise unremarkable. Physical examination did reveal left-sided facial swelling and tenderness palpation of her gingiva not upper and lower part of her jaw on the left, no obvious dental caries noted. Exam was otherwise unremarkable. Differential diagnosis: ?Includes but is not limited to dental caries, dental infection, dental abscess, anemia, electrolyte abnormalities Course: 00:14 My independent interpretation patient's laboratory evaluation is as follows: Pancytopenia with WBC 300, H&H of 7.2 and 19.8, platelet count 35,000. MCV elevated 100. Neutrophils low 20, lymphocytes highest 75.9. Bicarb low 20. ESR greater than 140. CRP elevated 16.97. Given the patient's facial swelling and and pain concerned that she may have an infection therefore I ordered a CT scan of the face with IV contrast. Patient was treated empirically with cefepime 2 g IV. I will discuss the patient's pancytopenia with the covering refueling ramp supervisor, Dr. Lilly 06:13 Patient was treated with morphine 4 mg IV x2 with only minimal improvement of her facial pain. She also received Zofran 4 mg IV for nausea. The CT scan of the patient's neck revealed left-sided facial subcutaneous induration without abscess, mass lesion, or osteomyelitis. I did discuss the patient's presentation with our refueling ramp supervisor Dr. 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 She recommended that the patient be transferred to a tertiary facility for further treatment. I did discuss the patient's presentation with the [facility] transfer line and they are going to page there refueling ramp supervisor on-call. 07:07 I did discuss the patient's presentation with the covering hematology fellow, Dr. Ashby. She recommended that we transfer the patient to [facility] as soon as possible. She recommended that the patient get allopurinol 300 mg orally and to try to do flow cytology on the patient however this is a send out test which is not done at this facility and would not come back today. 07:41 I did discuss the patient's presentation with the covering hospitalist at [facility] who did accept the patient onto the hospitalist service. The accepting attending is Dr. Roberts. At this time there was not a bed available at [facility] however the transfer line states that they anticipate 1 opening up as soon as they are discharge is this morning. I ordered cefepime 2 g IV Q 8 hours so the patient will be treated while we are waiting for transfer. Admission/Observation Consideration of admission/observation: Escalation of care including admission/observation considered (Yes) Lab Data MDM Lab Attestation statement: I reviewed the patient's lab results. 08/29/24 22:08 08/29/24 22:08 Labs: Lab Results 08/29/24 08/29/24 08/29/24 Range/Units 22:08 23:56 23:57 WBC 0.3 L* (4.8-10.8) X10*3/uL RBC 1.98 L D (4.20-5.50) X10*6/uL Hgb 7.2 L D (12.0-16.0) g/dl Hct 19.8 L* D (37.0-47.0) % MCV 100.0 H (80.0-98.0) fL MCH 36.4 H (27.0-33.0) pg MCHC 36.4 H (31.0-35.0) g/dl RDW 15.5 (11.0-16.0) % Plt Count 35 L D (160-400) X10*3/uL MPV 9.0 L (9.4-12.3) fL Immature Gran % (Auto) 0.0 (0.0-0.4) % Neut % (Auto) 20.7 L (45-73) % Lymph % (Auto) 75.9 H (20-40) % Chaves % (Auto) 3.4 (2-11) % Eos % (Auto) 0.0 (0-4) % Baso % (Auto) 0.0 (0-2) % Lymph # (Auto) 0.2 L (1.2-4.9) X10*3/uL Chaves # (Auto) 0.0 L (0.1-1.2) X10*3/uL Eos # (Auto) 0.0 (0.0-0.4) X10*3/uL Baso # (Auto) 0.0 (0.0-0.2) X10*3/uL Abs Immat Gran (auto) 0.00 (0.00-0.03) X10*3/uL Absolute Neuts (auto) 0.1 L (2.0-8.3) x10*3/uL Absolute Nucleated RBC 0.000 (0.0-0.012) X10*3/uL Nucleated RBC % (auto) 0.0 (0.0-0.2) /100WBC Smear Tech's Comments VERIFIED Smear Path Review SEE NOTE ESR > 140 H (0-20) MM/HR Sodium 136 (135-145) mmol/L Potassium 4.0 (3.3-5.1) mmol/L Chloride 106 (96-108) mmol/L Carbon Dioxide 20 L (22-29) mmol/L Anion Gap 14 (12-20) BUN 8 L (9-16) mg/dL Creatinine 0.61 (0.5-1.4) mg/dL Estim Creat Clear Calc 122.5 Estimated GFR > 60 Random Glucose 98 (60-115) mg/dL Lactic Acid 0.7 (0.5-2.0) mmol/L Calcium 9.1 (8.4-10.2) mg/dL Total Bilirubin 0.7 (0.0-1.0) mg/dL Direct Bilirubin 0.2 (0.0-0.5) mg/dL AST 14 (5-31) U/L ALT 14 (0-31) U/L Alkaline Phosphatase 90 (39-117) U/L C-Reactive Protein 16.97 H (< or = 0.50) mg/dL Total Protein 8.0 (6.5-8.0) g/dL Albumin 4.5 (3.5-5.0) g/dL Beta HCG, Quant < 2 mIU/mL HIV 1&2 Ab/P24 Ag 4thGn (Nonreactive) Influenza Type A (PCR) (Negative) Influenza Type B (PCR) (Negative) RSV RNA Qual (PCR) (Negative) SARS-CoV-2 RNA (RT-PCR) (Negative) Blood Type O Positive Antibody Screen NEGATIVE 08/30/24 08/30/24 Range/Units 00:54 07:51 WBC (4.8-10.8) X10*3/uL RBC (4.20-5.50) X10*6/uL Hgb (12.0-16.0) g/dl Hct (37.0-47.0) % MCV (80.0-98.0) fL MCH (27.0-33.0) pg MCHC (31.0-35.0) g/dl RDW (11.0-16.0) % Plt Count (160-400) X10*3/uL MPV (9.4-12.3) fL Immature Gran % (Auto) (0.0-0.4) % Neut % (Auto) (45-73) % Lymph % (Auto) (20-40) % Chaves % (Auto) (2-11) % Eos % (Auto) (0-4) % Baso % (Auto) (0-2) % Lymph # (Auto) (1.2-4.9) X10*3/uL Chaves # (Auto) (0.1-1.2) X10*3/uL Eos # (Auto) (0.0-0.4) X10*3/uL Baso # (Auto) (0.0-0.2) X10*3/uL Abs Immat Gran (auto) (0.00-0.03) X10*3/uL Absolute Neuts (auto) (2.0-8.3) x10*3/uL Absolute Nucleated RBC (0.0-0.012) X10*3/uL Nucleated RBC % (auto) (0.0-0.2) /100WBC Smear Tech's Comments Smear Path Review ESR (0-20) MM/HR Sodium (135-145) mmol/L Potassium (3.3-5.1) mmol/L Chloride (96-108) mmol/L Carbon Dioxide (22-29) mmol/L Anion Gap (12-20) BUN (9-16) mg/dL Creatinine (0.5-1.4) mg/dL Estim Creat Clear Calc Estimated GFR Random Glucose (60-115) mg/dL Lactic Acid (0.5-2.0) mmol/L Calcium (8.4-10.2) mg/dL Total Bilirubin (0.0-1.0) mg/dL Direct Bilirubin (0.0-0.5) mg/dL AST (5-31) U/L ALT (0-31) U/L Alkaline Phosphatase (39-117) U/L C-Reactive Protein (< or = 0.50) mg/dL Total Protein (6.5-8.0) g/dL Albumin (3.5-5.0) g/dL Beta HCG, Quant mIU/mL HIV 1&2 Ab/P24 Ag 4thGn Nonreactive (Nonreactive) Influenza Type A (PCR) NEGATIVE (Negative) Influenza Type B (PCR) NEGATIVE (Negative) RSV RNA Qual (PCR) NEGATIVE (Negative) SARS-CoV-2 RNA (RT-PCR) NEGATIVE (Negative) Blood Type Antibody Screen Radiology Impression Discussion of test interpretation with radiology: I have reviewed the radiologist's reading. Radiologist Impression: CT soft tissue neck with contrast Comparison: None Findings: Induration within the subcutaneous fat in the left pre maxillary region extending into the left pre mental and left submental region. No discrete fluid collection seen to suggest abscess. No discrete mass lesion. Mildly prominent jugular lymph nodes appear reactive in nature. No bony destructive changes seen. No definitive dental abscess is evident. No air-fluid levels within the paranasal sinuses. 15 mm mucous retention cyst within the right maxillary sinus. Globes are intact. No postseptal induration. Upper airway is patent. No apical infiltrate or apical pneumothorax. No acute fractures. IMPRESSION: Left-sided facial subcutaneous induration as above without abscess, mass lesion, or osteomyelitis This document has been electronically signed by: Nick Lowry MD on 08/30/2024 05:30:06 Critical Care Time Critical Care Time Critical Care Time: Yes Total Critical Care Time: 45 Attestation: Critical Care: The patient was critically ill with a high probability of imminent or life threatening deterioration. I spent greater than 30 minutes of discontinuous time evaluating the patient,delivering critical care at the bedside, discussing and evaluating pertinent data with consultants. Critical care time does not include time spent performing separately billable procedures or teaching. Total time spent performing critical care was 45 minutes. Discharge Plan Discharge Clinical Impression: Acute leukemia, Cellulitis of face, Acute facial pain, Neutropenia [facility] Disposition: [facility] Transfer Details: [facility] hospitalist service, accepting attending is Dr. Roberts Prescriptions: No Action No Known Home Meds Discharge Date/Time: 08/30/24 20:32 Print Language: Persian
[2024-08-29 22:14] LABS: Hemoglobin 7.2 g/dl (12.0-16.0); Mean Corpuscular HGB Conc 36.4 g/dl (31.0-35.0); SCAN SMEAR FLAG 1
[2024-08-29 22:16] LABS: Lymphocytes Absolute Auto 0.2 X10*3/uL (1.2-4.9); Lymphocytes Percent Auto 75.9 % (20-40); MANUAL DIFF FLAG SCAN; Mean Corpuscular Hemoglobin 36.4 pg (27.0-33.0); Monocytes Percent Auto 3.4 % (2-11); Neutrophils Absolute Auto 0.1 x10*3/uL (2.0-8.3); Neutrophils Percent Auto 20.7 % (45-73); Red Blood Count 1.98 X10*6/uL (4.20-5.50); Red Cell Distribution Width 15.5 % (11.0-16.0)
[2024-08-29 22:26] LABS: Alanine Aminotransferase 14 U/L (0-31); Albumin Level 4.5 g/dL (3.5-5.0); Alkaline Phosphatase 90 U/L (39-117); Anion Gap 14 (12-20); Aspartate Amino Transferase 14 U/L (5-31); Bilirubin Direct 0.2 mg/dL (0.0-0.5); Bilirubin Total 0.7 mg/dL (0.0-1.0); Blood Urea Nitrogen 8 mg/dL (9-16); C Reactive Protein 16.97 mg/dL (< or = 0.50); Calcium 9.1 mg/dL (8.4-10.2); Carbon Dioxide 20 mmol/L (22-29); Chloride 106 mmol/L (96-108); Creatinine Clr Calc Pharmacy 122.5; Estimated Glomerular Filt Rate > 60; Glucose Random 98 mg/dL (60-115); Platelet Count 35 X10*3/uL (160-400); Sodium 136 mmol/L (135-145)
[2024-08-29 22:30] LABS: Hematocrit 19.8 % (37.0-47.0); White Blood Count 0.3 X10*3/uL (4.8-10.8)
[2024-08-29 22:57] LABS: SLIDE REVIEW VERIFIED
[2024-08-29 23:26] VITALS: BP 124/78; PULSE 113; RESP 28; TEMP 37; O2SAT 98
--- OUTSIDE RECORDS SUMMARY | 2024-08-29 23:54 | XMS_ITS | Clinical Summary ---
Author Organization [facility] Address [address] [place] [address] Care Team Providers Care Signal Person Name Role Phone Unavailable Primary Care Provider Unavailabl e Encounters Date Type Department Care Team Description 07/18/2024 Telephone [facility] [address] [place] [phone] Hasmukh Storey MD Appointment Request 06/16/2024 Population Health Risk Score [facility] ([facility]) Department [address] [id number] Provider, Population Health Generic from Last 3 Months Social History Tobacco Use Types Packs/Day Years Used Date Smoking Tobacco: Never Assessed Comments Unknown Sex and Gender Information Value Date Recorded Sex Assigned at Female 02/02/2022 10:18 AM EDT Legal Sex Female 10:18 AM EDT Gender Identity Female 02/02/2022 10:18 AM EDT Sexual Orientation Straight 02/02/2022 10 :18 AM EDT Plan of Treatment Upcoming Encounters Date Type Department Care Team (Late st Contact Info) Description 11/22/2024 9:00 AM EDT Office Visit [facility] [address] [place] [phone] Kamini Che NP [address] [place] [address] Health Maintenance Due Date Last Done Comments Depression Screening 1982 HIV Screening 1982 SDOH Screening 1982 Disability Screening 1982 Alcohol/Substance Use Screening 1994 Tobacco [...] patient's age to complete this topic Meningococcal B Vaccine Aged Out No l onger eligible based on patient's age to complete [...] patient's age to complete this topic Insurance [facility] C3
[2024-08-29 23:56] LABS: Erythrocyte Sedimentation Rate > 140 MM/HR (0-20)
[2024-08-30] VITALS (10 sets, daily range): BP systolic 103–123; BP diastolic 60–83; PULSE 92–112; RESP 14–22; TEMP 36.8–37.2; O2SAT 87–100
[2024-08-30] MEDS: ondansetron HCL 4 MG/2 ML VIAL IVPUSH (00:09)
[2024-08-30] MEDS: 0.9 % Sodium Chloride 1,000 ML 999 ML IV (00:09)
[2024-08-30] MEDS: Morphine Sulfate 4 MG/ML CARTRIDGE IVPUSH ×3 (00:09→14:51)
[2024-08-30] MEDS: cefEPime HCl/D5W 2 GM/50 ML PIGGYBACK IV ×3 (00:10→18:37)
[2024-08-30 00:27] LABS: Lactic Acid 0.7 mmol/L (0.5-2.0)
[2024-08-30 00:45] LABS: HCG Quantitative < 2 mIU/mL
[2024-08-30] MEDS: iohexoL 350 MG/ML 100 ML INFUS..BTL 85 ML IV (01:44)
--- NOTE | 2024-08-30 02:36 | PC.NURSE ---
pt reports pain remains 8/10, however to awake pt had to use tactile stimuli. 02 92-94% on RA. aware, states to hold off on meds at this time.
--- NOTE | 2024-08-30 06:45 | MHC.EDTECH ---
commode placed at bedside for pt safety. pt neutropenic precautions.
[2024-08-30] MEDS: Lactated Ringers 1,000 ML 250 ML IVCONT ×4 (07:26→20:14)
--- NOTE | 2024-08-30 07:32 | PC.NURSE ---
pt sleeping, wakes to verbal stimulus, satellite project site monitor sinus tach 100s, vitals otherwise stable, pt on 2L NC due to morphine, rr equal/non labored, call dennison within reach, plan of care ongoing
--- NOTE | 2024-08-30 08:32 | PC.NURSE ---
continued to wait for medication from pharmacy
[2024-08-30] MEDS: allopurinoL 300 MG TABLET PO (08:52)
--- NOTE | 2024-08-30 08:55 | PC.NURSE ---
pt medicated per order, had to wait for medications from pharmacy
[2024-08-30 09:05] LABS: Influenza A PCR NEGATIVE (Negative); Influenza B PCR NEGATIVE (Negative); Resp Syncy Virus RNA Qual PCR NEGATIVE (Negative); SARS COV2 PCR INHOUSE NEGATIVE (Negative)
[2024-08-30 09:36] LABS: HIV AB/AG Nonreactive (Nonreactive); HIV Num 1 0.06 S/CO (0.00-0.99)
--- NOTE | 2024-08-30 09:55 | PC.NURSE ---
pt currently sleeping
--- NOTE | 2024-08-30 14:40 | PC.NURSE ---
[facility] transfer line secretary office clerk called transfer line inquiring about bed for patient, per secretary office clerk there still is no bed available.
--- NOTE | 2024-08-30 14:53 | PC.NURSE ---
patient a&ox3, monitoring and evaluation advisor intact sinus tach low 100s on monitor, pt on 2L NC as she was just medicated with morphine and desats with morphine administration. vitals otherwise stable. pt has c/o mouth/facial pain, denies difficulty swallowing/breathing, call dennison within reach, plan of care ongoing o
--- NOTE | 2024-08-30 18:38 | PC.NURSE ---
pt medicated per order
--- NOTE | 2024-08-30 20:10 | PHA.MEDREC ---
Pharmacy Consult ? Medication Reconciliation Pharmacy has completed the medication reconciliation. Spoke with pt and she confirmed she is not taking any medications at this time.
--- NOTE | 2024-08-30 20:31 | PC.NURSE ---
report given to Kong RN, patient transferred to facility in stable condition
== END 2024-08-30 20:32 | disposition short-term general hospital (02) ==
PROVIDERS: Physician Assistant; Emergency Provider Emergency Medicine Emergency Medical Services
DX: K12.2 Cellulitis and abscess of mouth (principal); D61.818 Other pancytopenia; R11.0 Nausea; D70.9 Neutropenia, unspecified; R94.31 Abnormal electrocardiogram [ECG] [EKG]; R00.2 Palpitations; R51.9 Headache, unspecified; F17.210 Nicotine dependence, cigarettes, uncomplicated; R10.2 Pelvic and perineal pain; Z03.818 Encounter for observation for suspected exposure to other biological agents ruled out; Z79.899 Other long term (current) drug therapy
CPT/HCPCS: 0241U; 36415; 70491; 71045; 80048; 80076; 83605; 84702; 85025; 85652; 86140; 86850; 86900; 86901; 87040; 87389; 96361; 96365; 96366; 96375; 96376; 99285; J0692; J2270; J2405; J7120; Q9967

== ENCOUNTER → 2024-08-30 00:18 | Outpatient (BNV) | payer MEDICAID, SELFPAY | PROVIDERS: Emergency Provider Emergency Medicine Emergency Medical Services; Visit Provider Radiology Diagnostic Radiology | DX: L03.211 Cellulitis of face (principal); J84.9 Interstitial pulmonary disease, unspecified | CPT/HCPCS: 70491; 71045 ==

== ENCOUNTER 2025-02-10 04:12 | Emergency (ER) | payer MEDICAID, SELFPAY ==
[2025-02-10 04:21] VITALS: BP 117/68; BP 122/72; PULSE 102; PULSE 82; RESP 18; TEMP 36.6; O2SAT 98
--- OUTSIDE RECORDS SUMMARY | 2025-02-10 04:42 | XMS_ITS ---
Author Organization [employer] Address [address] [place] [address] Care Team Providers Care Brim Plater Name Role Phone Loni Barrera MD Primary Care Provider [phone] Lucas De Luna RN Unavailable [phone] CM Complex Status:Outreach In Progress (Enrolling) Start date:10/16/2024 Enrollment reason:ADT Feed Overview [facility] ed 10/14/24 pericardial effusion Case Team Name Relationship Phone Lucas De uLna RN(Responsible Staff) Registered [facility] [phone] Continued Care and Services Coordination
--- OUTSIDE RECORDS SUMMARY | 2025-02-10 04:42 | XMS_ITS | Clinical Summary ---
Author Organization [employer] Address [address] [facility] [address] [facility] [address] [place] [address] Care Team Providers Care Demand Generator Manager Name Role Phone Loni Barrera MD Primary Care Provider [phone] Lucas De Luna RN Unavailable [phone] Allergies No known active allergies Medications acyclovir (Zovirax) 400 MG tablet Take 1 tablet by mouth 2 times daily. 5 Active allopurinol (Zyloprim) 300 MG tablet Take 1 tablet by mouth Once per day. 5 Active ondansetron ODT (Zofran-ODT) 8 MG disintegrating tablet Take 1 tablet by mouth 1 (one) time each day at the same time. 5 Active pantoprazole (ProtoNix) 40 MG EC tablet Take 1 tablet by mouth before breakfast. 5 Active predniSONE (Deltasone) 20 MG tablet Take 2 tablets by mouth 1 (one) time each day at the same time. 5 Active sulfamethoxazole-t rimethoprim (Bactrim DS) 800-160 MG tablet Take 1 tablet by mouth 3 (three) times a week. Every Wednesday, Wednesday, Wednesday 5 Active prochlorperazine (Compazine) 5 MG tablet Take 1 tablet by mouth every 6 (six) hours if needed for nausea or vomiting. 5 Active hydrOXYzine pamoate (Vistaril) 25 MG capsuleIndications :Anxiety Take 1 capsule (25 mg) by mouth every 8 (eight) hours if needed for anxiety. 90 capsule 3 5 Active nortriptyline (Pamelor) 10 MG capsuleIndications :Anxiety Take 1 capsule (10 mg) by mouth at bedtime. 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/HCC) 10/11/2024 Assessment & Plan (10/12/2024 9:01 AM EDT): Will order walker with seat and medical alert bracelet or safety Continue treatment with [facility] for chemo infusions Anxiety 10/11/2024 Assessment & Plan (10/12/2024 9:02 AM EDT): BE today Consider meds No SI or HI Overweight 10/11/2024 Assessment & Plan (10/12/2024 9:01 AM EDT): Eat healthfully when possible, walk 20-30 minutes per day if able Encounters Date Type Department Care Team Description 01/26/2025 Patient Outreach [address] [address] Loni Barrera MD Care Coordination ([facility] Ayah De Los Santos telephone call outreach ) 01/08/2025 Patient Outreach [address] [address] Loni Barrera MD Care Coordination ([facility] Ayah De Los Santos telephone call outreach) 01/05/2025 Patient Outreach [address] [address] Loni Barrera MD 12/28/[address] [address] Loni Barrera MD chart prep 12/25/2024 Patient Outreach [facility] [address] [place] [address] Loni Barrera MD Care Management ([facility]- Initial assessment/enrollment/ LVM) 12/22/2024 Patient Outreach [facility] [address] [place] [address] Loni Barrera MD Care Coordination ([facility] Ayah De Los Santos telephone call outreach) 12/06/2024 Patient Outreach [facility] [address] [place] [address] Loni Barrera MD Care Coordination ([facility] Ayah De Los Santos telephone call outreach) from Last 3 Months Immunizations Immunization Administration Dates Next Due Tdap 06/07/2022 Social History Tobacco Use Types Packs/Day Years Used Date Smoking Tobacco: Every Day Cigarettes Passive Smoke Exposure: Current Smokeless Tobacco: Never Tobacco Cessation:Ready to Q uit: Not Asked; Counseling Given: Not Answered Depression Answer Date Recorded Patient Health Questionnaire-9 Score 12 10/11/2024 Patient Health Questionnaire-9 Score 12 10/11/2024 Last PHQ-9: Questionnaire Data Not on file 0 10/11/2024 Housing Stability Answer Date Recorded What is your housing situation today? I do not have housing (Staying with others, in a hotel, in a [place] [facility], living outside on the street, on a beach, in a car, or in a park 12/06/[address] you li ve. Do you have problems with any of the following? None of the above 12/06/2024 Food Insecurity Answer Date Recorded Within the past 12 months, y ou worried that your food would run out before you got money to buy more: Sometimes True 2024 Within the past 12 months,th e food you bought just didn't last and you didn't have enough money to get more: Sometimes True 12/06/2024 Transportation Answer Date Recorded In the past 12 months, has l ack of transportation kept you from medical appts, meetings, work or from getting things needed for daily living? Yes, it has kept me from medical appointments or getting medications. 12/06/2024 Utilities Answer Date Recorded In the past 12 months, has t he electric, gas, oil or water company threatened to shut off services in your home? No 10/11/2024 Depression Answer Date Recorded Patient Health Questionnaire-2 Score 2 10/11/2024 Internet Access Answer Date Recorded Internet Access Q1 Yes 10/11/2024 Internet Access Q2 Not on file 10/11/2024 Comments Unknown Sex and Gender Information Value Date Recorded Sex Assigned at Female 02/02/2022 10:18 AM EDT Legal Sex Female 10:18 AM EDT Gender Identity Female 02/02/2022 10:18 AM EDT Sexual Orientation Straight 02/02/2022 10 :18 AM EDT Last Filed Vital Signs Vital Sign Reading Time Taken Comments Blood Pressure 132/80 10/11/2024 10:57 AM EDT Pulse 76 10/11/2024 10:57 AM EDT Temperature 37.1 C (98.7 F) 10/11/2024 10:57 AM EDT Respiratory Rate 18 10/11/2024 10:57 AM EDT Oxygen Saturation - - Inhaled Oxygen Concentration - - Weight 87.1 kg (192 lb) 10/11/2024 10:57 AM EDT Height 172.7 cm (5' 8 ) 10/11/2024 10:57 AM EDT Body Mass Index 29.19 10/11/2024 10:57 AM EDT Plan of Treatment Health Maintenance Due Date Last Done Comments Lipid Panel 1982 Alcohol/Substance Use Screening 1994 Family Planning (PISQ) 1997 Hepatitis C Screening 2000 Hepatitis A Vaccines (1 of 2 - Risk 2-dose series) 2001 Hepatitis B Vaccines (1 of 3 - 19+ 3-dose series) 2001 Pneumococcal Vaccine: Pediatrics (0 to 5 Years) and At-Risk Patients (6 to 49) Years (1 of 2 - PCV) 2001 Zoster Vaccines (1 of 2) 2001 Pap Smear 08/19/2003 HPV Vaccines (1 - Risk 3-dos e SCDM series) 2009 Cervical Cancer Screening 2012 HPV/Cotest 2012 Mammogram 2022 COVID-19 Vaccine ( - 2024-2 6 season) 2024 07/22/2021, 01/27/2021, 01/06/2021 Influenza Vaccine (#1) 2024 Depression Monitoring 04/13/2025 10/11/2024 , 10/11/2024 Disability Screening 10/11/2025 10/11/2024 Tobacco Screening 10/11/2025 10/11/2024 SDOH Screening 12/06/2025 12/06/2024 DTaP/Tdap/Td Vaccines (2 - T d or Tdap) 06/07/2032 06/07/2022 RSV Patients and Patients Aged 60 years or older (1 - 1-dose 75+ series) 2057 HIV Screening Completed 08/30/2024 HIB Vaccines Aged Out No longer eligi [...] on patient's age to complete this topic Procedures Procedure Name Priority Date/Time Associated Diagnosis Comments HIV 1/2 ANTIGEN/ANTIBODY, FOURTH GENERATION W/RFL Routine 08/30/2024 12:54 AM EDT from Last 3 Months or Most Recently Relevant to Health Maintenance Results * HIV-1/2 Antigen and Antibodies, Fourth Generation, with Reflexes (08/30/2024 12:54 AM EDT) HIV AB/AG Nonreactive Nonreactive [facility] Comment:HIV-1 p24 Ag and/or HIV-1/HIV-2 Ab not detected.A test result that is nonreactive does not exclude thepossibility of exposure to or infection with HIV-1 and/orHIV-2. Nonreactive results in this assay for individualswith prior exposure to HIV-1 and/or HIV-2 may be due toantigen and antibody levels that are below the limit ofdetection of this assay.The [employer] HIV Ag/Ab Combo assay result andsupplemental assay results should be interpreted inconjunction with the patient's clinical presentation,history and other laboratory results. If the results areinconsistent with clinical evidence, additional testing issuggested to confirm the result. 08/30/2024 12:5 4 AM EDT 08/30/2024 12:57 AM EDT us Generic External Data Provider LAB BLOOD ORDERAB LES Final Result [facility] [address] [place] [address] [phone] from Last 3 Months or Most Recently Relevant to Health Maintenance Insurance [facility] C3 Care Teams Demand Generator Manager Relationship Specialty Start Date End Date Loni Barrera MD [address] [place] [address] PCP - General Family Medicine 10/11/24 Lucas De Luna, RN [address] [place] [id number] Registered Nurse Family Medicine 10/16/24
--- NOTE | 2025-02-10 04:54 | ED_ITS ---
HPI - General Adult General Chief complaint: Weakness Stated complaint: Weakness Time Seen by Provider: 02/10/25 04:54 History of Present Illness ED Provider: Franki HASKINS narrative: The patient is a 44-year-old who comes to the hospital by ambulance after having episodes of feeling like her legs were giving out while she was walking early this morning. When the patient 1st arrived she reported that she had smoked a lot of marijuana and that she wondered if perhaps the marijuana has been ?laced? with something because she was ?feeling weird. ? When I saw the patient she was a very rambling historian and talked about how on some occasions in her life her legs have seemed very loose and that she has a ?walked like a duck.? The patient has a apparently been upset recently because her mother was hospitalized for some kind of abdominal surgery and required a stoma and an ostomy bag. Her mother still a patient at [facility]. I believe the patient was smoking marijuana this evening and at some point this morning was going to a relative's house. She was with a friend and they were walking to the relatives house when the patient's legs seemed to be giving out and the friend called 911. The patient denies any recent fevers, sweats, chills. No sore throat. No chest pain. No bowel or bladder control problems. Related Data Home Medications ?Medication ?Instructions ?Recorded ?Confirmed No Known Home Meds 08/30/24 08/30/24 Allergies Allergy/AdvReac Type Severity Reaction Status Date / Time No Known Allergies (No Known Allergy Verified 02/10/25 04:25 Allergies*) Review of Systems 2 Review of Systems: Yes all other systems are reviewed and are negative [facility] Past Medical History Medical History PTSD (post-traumatic stress disorder) Substance abuse Social History Social History Household Members: Other Household Members Other:: mother Housing: House Do you presently have visiting nurse or other home services: No Alcohol intake: current Alcohol intake frequency: holidays/special occasions only Alcohol type: wine Patient Tobacco Use Status: Current everyday Tobacco user Tobacco use type: Cigarette Cigarettes Per Day: 7 Smoked in Last 30 Days: Yes Second Hand Smoke Exposure: No Substance Use Type: Marijuana Advance Directives: No Advance Directives Information Provided: No service: No Current occupational status: unemployed 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 She has a histrionic demeanor and is a rambling historian. I felt that she seemed to possibly be somewhat intoxicated. She did not seem in pain or respiratory distress however. HENMT Other: Face is symmetrical. Mucous membranes moist. Pharynx is unremarkable. Eyes Other: Pupils are round equal, conjunctivae are clear, extraocular movements intact Neck Neck: Yes normal visual inspection and Yes full ROM Resp Effort & Inspection: normal respiratory effort Auscultation: clear to auscultation bilaterally Cardio Rate: regular rate Rhythm: regular rhythm Heart sounds: S1 normal heart sound present and S2 normal heart sound present GI Other: Abdomen is soft and nontender Skin Other: Skin is dry and unremarkable. Neuro Other: The patient is awake and alert. There may be some slight slurring of speech but cranial nerves are otherwise intact. She has a histrionic demeanor. She moves her extremities symmetrically with a good strength. She has 2+ reflexes of the knees and ankles. She did not seem to have any gross weakness when she attempted to walk. Extrem Other: The feet are well-perfused. Sensation seems intact. There was no swelling or edema. No signs of injury. Feet are neurovascularly intact. Medical Decision Making Medical Decision Making MDM Narrative: The patient is a 44-year-old woman who arrived by ambulance after having some difficulty walking. A friend with whom she was walking called 911. When the patient arrived the patient thought that perhaps she had had an effect from the marijuana she had used. On my exam I did not find any significant evidence of any kind of acute neurological problem. The patient did seem as if she might be slightly high. An EKG and labs were done and the patient was observed. Her EKG and labs were largely unremarkable. The patient was feeling better. I ambulated her again. We were able to walk quite a long distance around the emergency department and she walked very steadily. My overall impression is that the patient is not having any significant acute medical process. While we were walking the patient also told me that she has been receiving treatment for leukemia at [facility] with Dr. Mtz. I ultimately explained to the patient that I thought that her episode tonight was probably a combination of the marijuana use together with the anxiety she has been feeling about her mother's health and both of these combined with lack of sleep tonight. She seems to have recovered her ability to walk and I think she may be discharged. She should follow up with her regular providers. Lab Data 02/10/25 05:41 02/10/25 05:41 Labs: Lab Results 02/10/25 Range/Units 05:41 WBC 8.8 (4.8-10.8) X10*3/uL RBC 4.05 L D (4.20-5.50) X10*6/uL Hgb 12.3 D (12.0-16.0) g/dl Hct 36.8 L D (37.0-47.0) % MCV 90.9 (80.0-98.0) fL MCH 30.4 (27.0-33.0) pg MCHC 33.4 (31.0-35.0) g/dl RDW 16.1 H (11.0-16.0) % Plt Count 343 D (160-400) X10*3/uL MPV 9.3 L (9.4-12.3) fL Immature Gran % (Auto) 0.2 (0.0-0.4) % Neut % (Auto) 63.3 (45-73) % Lymph % (Auto) 29.7 (20-40) % Kerr % (Auto) 6.4 (2-11) % Eos % (Auto) 0.1 (0-4) % Baso % (Auto) 0.3 (0-2) % Lymph # (Auto) 2.6 (1.2-4.9) X10*3/uL Kerr # (Auto) 0.6 (0.1-1.2) X10*3/uL Eos # (Auto) 0.0 (0.0-0.4) X10*3/uL Baso # (Auto) 0.0 (0.0-0.2) X10*3/uL Abs Immat Gran (auto) 0.02 (0.00-0.03) X10*3/uL Absolute Neuts (auto) 5.6 (2.0-8.3) x10*3/uL Absolute Nucleated RBC 0.000 (0.0-0.012) X10*3/uL Nucleated RBC % (auto) 0.0 (0.0-0.2) /100WBC Sodium 143 (135-145) mmol/L Potassium 4.0 (3.3-5.1) mmol/L Chloride 110 H (96-108) mmol/L Carbon Dioxide 23 (22-29) mmol/L Anion Gap 14 (12-20) BUN 12 (9-16) mg/dL Creatinine 0.71 (0.5-1.4) mg/dL Estim Creat Clear Calc 108.9 Estimated GFR > 60 Random Glucose 99 (60-115) mg/dL Calcium 9.3 (8.4-10.2) mg/dL Magnesium 2.4 (1.6-2.6) mg/dL Total Bilirubin 0.3 (0.0-1.0) mg/dL AST 24 (5-31) U/L ALT 21 (0-31) U/L Alkaline Phosphatase 93 (39-117) U/L Total Creatine Kinase 119 (26-140) U/L C-Reactive Protein 0.48 (< or = 0.50) mg/dL Total Protein 7.8 (6.5-8.0) g/dL Albumin 4.8 (3.5-5.0) g/dL Beta HCG, Quant < 2 mIU/mL Ethyl Alcohol < 10 mg/dL Discharge Plan Discharge Clinical Impression: Bilateral leg weakness Patient Disposition: Home, Self-Care Additional Instructions: The weakness in your legs seems to have improved. This may simply be a case of being over fatigued. Please try and get some rest. Please plan on following up with your regular providers. Return to the emergency room if significantly worse. Prescriptions: No Action No Known Home Meds Referrals: Loni Barrera MD [Physician, Internal Medicine] Cari Mtz MD [Physician, Hematology & Oncology] Print Language: Azeri
--- NOTE | 2025-02-10 05:06 | ECG_ITS ---
Test Reason : WEAKNESS Blood Pressure : */* mmHG Vent. Rate : 85 BPM Atrial Rate : 85 BPM P-R Int : 158 ms QRS Dur : 84 ms QT Int : 374 ms P-R-T Axes : 39 35 29 degrees QTcB Int : 445 ms Normal sinus rhythm Normal ECG When compared with ECG of 21-Mar-2023 19:16, No significant change was found Referred By: Daniel Doan Electronically Signed By: Girma Dutta
[2025-02-10 05:45] LABS: Hematocrit 36.8 % (37.0-47.0); Hemoglobin 12.3 g/dl (12.0-16.0); Imm Gran Abs Auto 0.02 X10*3/uL (0.00-0.03); Imm Gran Pct Auto 0.2 % (0.0-0.4); Lymphocytes Absolute Auto 2.6 X10*3/uL (1.2-4.9); MANUAL DIFF FLAG NO; Mean Corpuscular HGB Conc 33.4 g/dl (31.0-35.0); Mean Corpuscular Hemoglobin 30.4 pg (27.0-33.0); Mean Corpuscular Volume 90.9 fL (80.0-98.0); NRBC Abs Auto 0.000 X10*3/uL (0.0-0.012); NRBC Pct Auto 0.0 /100WBC (0.0-0.2); Platelet Count 343 X10*3/uL (160-400); Red Blood Count 4.05 X10*6/uL (4.20-5.50); White Blood Count 8.8 X10*3/uL (4.8-10.8)
[2025-02-10 06:12] LABS: Alanine Aminotransferase 21 U/L (0-31); Albumin Level 4.8 g/dL (3.5-5.0); Alkaline Phosphatase 93 U/L (39-117); Anion Gap 14 (12-20); Aspartate Amino Transferase 24 U/L (5-31); Blood Urea Nitrogen 12 mg/dL (9-16); Calcium 9.3 mg/dL (8.4-10.2); Carbon Dioxide 23 mmol/L (22-29); Chloride 110 mmol/L (96-108); Creatinine Clr Calc Pharmacy 108.9; Estimated Glomerular Filt Rate > 60; Magnesium 2.4 mg/dL (1.6-2.6); Potassium 4.0 mmol/L (3.3-5.1); Sodium 143 mmol/L (135-145); Total Protein 7.8 g/dL (6.5-8.0)
[2025-02-10 06:27] VITALS: BP 109/57; PULSE 85; RESP 16; TEMP 36.6; O2SAT 100
[2025-02-10 06:34] VITALS: BP 109/57; PULSE 85; RESP 16; TEMP 36.6; O2SAT 100
== END 2025-02-10 06:47 | disposition home or self-care (01) ==
PROVIDERS: Emergency Provider Emergency Medicine
DX: R26.2 Difficulty in walking, not elsewhere classified (principal); F41.9 Anxiety disorder, unspecified; R53.1 Weakness; F60.4 Histrionic personality disorder; Z72.0 Tobacco use; F12.90 Cannabis use, unspecified, uncomplicated
CPT/HCPCS: 36415; 80053; 80307; 82550; 83735; 84702; 85025; 86140; 93005; 99283; 99284

== ENCOUNTER → 2025-02-10 05:06 | Outpatient (BNV) | payer MEDICAID, SELFPAY | PROVIDERS: Emergency Provider Emergency Medicine; Visit Provider Internal Medicine Cardiovascular Disease | DX: R53.1 Weakness (principal) | CPT/HCPCS: 93010 ==

== ENCOUNTER 2025-02-11 20:59 | Emergency (ER) | payer MEDICAID, SELFPAY ==
[2025-02-11 21:05] VITALS: BP 124/76; PULSE 130; O2SAT 94
[2025-02-11 21:10] VITALS: BP 115/61; PULSE 106; RESP 16; TEMP 36.4; O2SAT 94; BMI 31.3
--- OUTSIDE RECORDS SUMMARY | 2025-02-11 23:13 | XMS_ITS ---
Author Organization [employer] Address [address] [place] [address] Care Team Providers Care Pencil Inspector Name Role Phone Loni Barrera MD Primary Care Provider [phone] Lucas De Luna RN Unavailable [phone] CM Complex Status:Outreach In Progress (Enrolling) Start date:10/16/2024 Enrollment reason:ADT Feed Overview [facility]T-[facility] ed 10/14/24 pericardial effusion Case Team Name Relationship Phone Lucas De Luna RN(Responsible Staff) Registered [facility] [phone] Continued Care and Services Coordination
--- OUTSIDE RECORDS SUMMARY | 2025-02-11 23:13 | XMS_ITS | Clinical Summary ---
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 ([facility]) 10/11/2024 Assessment & Plan (10/12/2024 9:01 AM [...] Department Care Team Description 01/26/2025 Patient Outreach [address] [address] Loni Barrera MD Care Coordination ([facility] Ayah De Los Santos telephone call outreach ) 01/08/2025 Patient Outreach [address] [address] Loni Barrera MD Care Coordination ([facility] Ayah De Los Santos telephone call outreach) 01/05/2025 Patient Outreach [address] [address] Loni Barrera MD 12/28/[address] [address] Loni Barrera MD chart prep 12/25/2024 Patient Outreach [facility] [address] [place] [address] Loni Barrera MD Care Management ([facility]- Initial assessment/enrollment/ LVM) 12/22/2024 Patient Outreach [facility] [address] [place] [address] Loni Barrera MD Care Coordination ([facility] Ayah De Los Santos telephone call outreach) 12/06/2024 Patient Outreach [facility] [address] [place] [address] Loni Barrera MD Care Coordination ([facility] Ayah De Los Santos telephone call outreach) [...] with others, in a hotel, in a nursing home, living outside on the street, on a [...] 12:54 AM EDT) HIV AB/AG Nonreactive Nonreactive [facility] Comment:HIV-1 p24 Ag and/or HIV-1/HIV-2 Ab not detected.A test result that is nonreactive does not exclude thepossibility of exposure to or infection with HIV-1 and/orHIV-2. Nonreactive results in this assay for individualswith prior exposure to HIV-1 and/or HIV-2 may be due toantigen and antibody levels that are below the limit ofdetection of this assay.The EZ2CAD HIV Ag/Ab Combo assay result andsupplemental assay results should be interpreted inconjunction with the patient's clinical presentation,history and other laboratory results. If the results areinconsistent with clinical evidence, additional testing issuggested to confirm the result. 08/30/2024 12:5 4 AM EDT 08/30/2024 12:57 AM EDT us Generic External Data Provider LAB BLOOD ORDERAB LES Final Result [facility] [address] [place] [address] [phone] from Last 3 Months or Most Recently Relevant to Health Maintenance Insurance [facility] C3 Care Teams Adventure Guide Relationship Specialty Start Date End Date Loni Barrera MD [address] [place] [address] PCP - General Family Medicine 10/11/24 Lucas De Luna, RN [address] [place] [id number] Registered Nurse Family Medicine 10/16/24
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
[2025-02-12 00:40] VITALS: BP 115/61; PULSE 106; RESP 16; TEMP 36.4; O2SAT 94
[2025-02-12 00:54] VITALS: BP 120/67; PULSE 90; RESP 16; TEMP 36.4; O2SAT 94
== END 2025-02-12 00:54 | disposition home or self-care (01) ==
PROVIDERS: Emergency Provider Emergency Medicine
DX: F16.10 Hallucinogen abuse, uncomplicated (principal); F17.210 Nicotine dependence, cigarettes, uncomplicated; R40.2410 Glasgow coma scale score 13-15, unspecified time
CPT/HCPCS: 99283; 99284

== ENCOUNTER 2025-03-15 06:30 | Emergency (ER) | payer MEDICAID, SELFPAY ==
--- NOTE | ~2025-03-15 | XR_ITS ---
EXAMINATION: XR CHEST 1 VIEW HISTORY: chest pain COMPARISON: Comparison is made with the prior examination dated 08/30/2024. FINDINGS: A single AP portable view of the chest performed at 7:43 AM is submitted. A right-sided port is noted with its tip in the superior vena cava. The lungs are expanded and clear. There is no pleural effusion, pneumothorax, or pulmonary vascular congestion. The heart is normal in size. The bones are intact. XR/XR chest 1V IMPRESSION: No acute cardiopulmonary abnormality. Electronically signed by: Dorian Gaming MD 03/15/2025 08:02 AM [facility]
--- NOTE | 2025-03-15 06:38 | ECG_ITS ---
Test Reason : SHORTNESS OF BREATH Blood Pressure : */* mmHG Vent. Rate : 98 BPM Atrial Rate : 98 BPM P-R Int : 156 ms QRS Dur : 80 ms QT Int : 356 ms P-R-T Axes : 43 22 22 degrees QTcB Int : 454 ms Normal sinus rhythm Normal ECG When compared with ECG of 10-Feb-2025 05:19, No significant change was found Referred By: Generic ED Physician Electronically Signed By: SAUL MAURER MD
[2025-03-15 06:39] VITALS: BP 112/76; PULSE 110; O2SAT 96
--- NOTE | 2025-03-15 06:42 | ED.WEAKNESS ---
HPI - Weakness General Chief complaint: General Medical Stated complaint: WEAK,SOB,VOMITING BLOOD PER EMS Time Seen by Provider: 03/15/25 06:42 Source: patient and EMS Mode of arrival: EMS Limitations: no limitations History of Present Illness ED Provider: HPI Narrative: 44-year-old woman reports history of leukemia, diagnosed in August, managed at [facility], states gets chemo treatment every day and miss past 2 days, endorses smoking marijuana and using PCP, presenting with reports of nausea vomiting, sputum with trace blood, epigastric abdominal pain, no hematochezia reported. She states she woke up feeling short of breath. No reports of fevers, endorsing weakness. No reports of dysuria, trauma, rashes. Related Data Previous Rx's ?Medication ?Instructions ?Recorded ondansetron HCl 4 mg tablet 4 mg PO Q8H PRN nausea and 03/15/25 vomiting #10 tabs Allergies Allergy/AdvReac Type Severity Reaction Status Date / Time No Known Allergies (No Known Allergy Verified 03/15/25 06:56 Allergies*) Review of Systems Constitutional: Constitutional: Reports as per HPI [facility] Past Medical History Medical History PTSD (post-traumatic stress disorder) Substance abuse Social History Social History Household Members: Other Household Members Other:: mother Housing: House Do you presently have visiting nurse or other home services: No Alcohol intake: current Alcohol intake frequency: holidays/special occasions only Alcohol type: wine Patient Tobacco Use Status: Current everyday Tobacco user Tobacco use type: Cigarette Cigarettes Per Day: 7 Second Hand Smoke Exposure: No Substance Use Type: Hallucinogens Advance Directives: No Advance Directives Information Provided: Yes service: No Current occupational status: unemployed 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 Sexual orientation: Straight/Heterosexual Physical Exam Exam: Exam: ?General: ??looks age appropriate, no trauma ?Pupils 3 mm reactive bilaterally, no scleral icterus, Neck: Supple, no LAD ?CV: S1-S2 no obvious murmurs, port is palpable ?Resp: ?No wheezing rales rhonchi no stridor moving air well Abd: ?Bowel sounds are present, epigastric tenderness negative Samayoa's sign, no tenderness in the lower quadrants MSK: FROM, strength 5/5 all extremities, no edema Skin: Warm, dry, intact, no rashes ?Neuro: ?Alert and oriented x3, moving upper and lower extremities symmetrically, no obvious facial asymmetry noted, cranial nerves 2-12 intact Vital Signs: Vital Signs: Last Vital Signs Temp 98.5 F 03/15/25 09:32 Pulse 100 03/15/25 09:32 Resp 20 03/15/25 09:32 BP 125/76 03/15/25 09:32 Pulse Ox 98 03/15/25 09:32 O2 Del Method Room Air 03/15/25 09:32 BMI result Body Mass Index 33.3 Medications Administered Discontinued Medications Generic Name Dose Route Start Last Admin Trade Name Freq PRN Reason Stop Dose Admin Diazepam 2.5 mg 03/15/25 07:24 03/15/25 07:37 Diazepam 10 Mg/2 Ml Cartridge IVPUSH 03/15/25 07:25 2.5 mg STAT STA Administration Famotidine 20 mg 03/15/25 07:22 03/15/25 07:37 Famotidine/Pf 20 Mg/2 Ml Vial IVPUSH 03/15/25 07:23 20 mg ONCE ONE Administration Sodium Chloride 1,000 mls @ 999 mls/hr 03/15/25 07:30 03/15/25 07:37 Ns IV 03/15/25 08:30 999 mls/hr .Q1H1M BERNIE Administration Ondansetron HCl 4 mg 03/15/25 07:22 03/15/25 07:37 Ondansetron Hcl 4 Mg/2 Ml Vial IVPUSH 03/15/25 07:23 4 mg ONCE ONE Administration Medical Decision Making Medical Decision Making MDM Narrative: 7:52 AM 03/15/2025 (Dr. Dorian Ribera): [facility] medical records reviewed, visit with Dr. 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 Dorian Ribera): Thus far workup reassuring, no neutropenia, chest x-ray without consolidations, ECG without dysrhythmia or QTC prolongation 8:51 AM 03/15/2025 (Dr. Dorian Ribera): I re-evaluated the patient, she is more calm, she states that she was very nervous when she woke up she threw up there was a little bit of blood in her vomit, I updated Dr. Mtz via [facility] [place] text of pt's visit and updated pt, patient is very nervous overall, she states she is under stress due to her passing of her brother from my understanding, being managed for cancer I have discussed with her that is understandable cautioned against PCP use which is not healthy for mental health Differential Diagnosis Differential Diagnoses: The differential diagnosis associated with the presentation includes (Pneumonia, dehydration, electrolyte derangements, substance use disorder, gastritis, cholecystitis, neutropenia) Admission/Observation Consideration of admission/observation: Escalation of care including admission/observation considered Lab Data MDM Lab Attestation statement: I reviewed the patient's lab results. 03/15/25 07:16 03/15/25 07:16 Labs: Lab Results 03/15/25 03/15/25 03/15/25 Range/Units 07:16 07:32 07:33 WBC 7.3 (4.8-10.8) X10*3/uL RBC 3.61 L (4.20-5.50) X10*6/uL Hgb 11.0 L (12.0-16.0) g/dl Hct 32.5 L (37.0-47.0) % MCV 90.0 (80.0-98.0) fL MCH 30.5 (27.0-33.0) pg MCHC 33.8 (31.0-35.0) g/dl RDW 15.5 (11.0-16.0) % Plt Count 308 (160-400) X10*3/uL MPV 9.2 L (9.4-12.3) fL Immature Gran % (Auto) 0.1 (0.0-0.4) % Neut % (Auto) 55.7 (45-73) % Lymph % (Auto) 36.0 (20-40) % Kings % (Auto) 7.1 (2-11) % Eos % (Auto) 0.7 (0-4) % Baso % (Auto) 0.4 (0-2) % Lymph # (Auto) 2.6 (1.2-4.9) X10*3/uL Kings # (Auto) 0.5 (0.1-1.2) X10*3/uL Eos # (Auto) 0.1 (0.0-0.4) X10*3/uL Baso # (Auto) 0.0 (0.0-0.2) X10*3/uL Abs Immat Gran (auto) 0.01 (0.00-0.03) X10*3/uL Absolute Neuts (auto) 4.1 (2.0-8.3) x10*3/uL Absolute Nucleated RBC 0.000 (0.0-0.012) X10*3/uL Nucleated RBC % (auto) 0.0 (0.0-0.2) /100WBC Hold Blue Top SEE NOTE Sodium 139 (135-145) mmol/L Potassium 3.9 (3.3-5.1) mmol/L Chloride 110 H (96-108) mmol/L Carbon Dioxide 23 (22-29) mmol/L Anion Gap 10 L (12-20) BUN 10 (9-16) mg/dL Creatinine 0.61 (0.5-1.4) mg/dL Estim Creat Clear Calc 138.5 Estimated GFR > 60 Random Glucose 100 (60-115) mg/dL Lactic Acid (0.5-2.0) mmol/L Calcium 8.6 D (8.4-10.2) mg/dL Magnesium 2.3 (1.6-2.6) mg/dL Total Bilirubin 0.3 (0.0-1.0) mg/dL AST 33 H (5-31) U/L ALT 26 (0-31) U/L Alkaline Phosphatase 91 (39-117) U/L Total Protein 7.1 (6.5-8.0) g/dL Albumin 4.1 (3.5-5.0) g/dL Beta HCG, Quant < 2 mIU/mL Ethyl Alcohol < 10 mg/dL Influenza Type A (PCR) NEGATIVE (Negative) Influenza Type B (PCR) NEGATIVE (Negative) RSV RNA Qual (PCR) NEGATIVE (Negative) SARS-CoV-2 RNA (RT-PCR) NEGATIVE (Negative) 03/15/25 Range/Units 08:19 WBC (4.8-10.8) X10*3/uL RBC (4.20-5.50) X10*6/uL Hgb (12.0-16.0) g/dl Hct (37.0-47.0) % MCV (80.0-98.0) fL MCH (27.0-33.0) pg MCHC (31.0-35.0) g/dl RDW (11.0-16.0) % Plt Count (160-400) X10*3/uL MPV (9.4-12.3) fL Immature Gran % (Auto) (0.0-0.4) % Neut % (Auto) (45-73) % Lymph % (Auto) (20-40) % Kings % (Auto) (2-11) % Eos % (Auto) (0-4) % Baso % (Auto) (0-2) % Lymph # (Auto) (1.2-4.9) X10*3/uL Kings # (Auto) (0.1-1.2) X10*3/uL Eos # (Auto) (0.0-0.4) X10*3/uL Baso # (Auto) (0.0-0.2) X10*3/uL Abs Immat Gran (auto) (0.00-0.03) X10*3/uL Absolute Neuts (auto) (2.0-8.3) x10*3/uL Absolute Nucleated RBC (0.0-0.012) X10*3/uL Nucleated RBC % (auto) (0.0-0.2) /100WBC Hold Blue Top Sodium (135-145) mmol/L Potassium (3.3-5.1) mmol/L Chloride (96-108) mmol/L Carbon Dioxide (22-29) mmol/L Anion Gap (12-20) BUN (9-16) mg/dL Creatinine (0.5-1.4) mg/dL Estim Creat Clear Calc Estimated GFR Random Glucose (60-115) mg/dL Lactic Acid 0.6 (0.5-2.0) mmol/L Calcium (8.4-10.2) mg/dL Magnesium (1.6-2.6) mg/dL Total Bilirubin (0.0-1.0) mg/dL AST (5-31) U/L ALT (0-31) U/L Alkaline Phosphatase (39-117) U/L Total Protein (6.5-8.0) g/dL Albumin (3.5-5.0) g/dL Beta HCG, Quant mIU/mL Ethyl Alcohol mg/dL Influenza Type A (PCR) (Negative) Influenza Type B (PCR) (Negative) RSV RNA Qual (PCR) (Negative) SARS-CoV-2 RNA (RT-PCR) (Negative) Independent Interpretation I performed an independent interpretation of an: EKG (98 beats per minute normal EKG no QTC prolongation) and Plain X-Ray (Port is in place no obvious consolidations or effusions noted no enlarged cardiac borders) Radiology Impression Discussion of test interpretation with radiology: I have reviewed the radiologist's reading. Radiologist Impression: XR/XR chest 1V IMPRESSION: No acute cardiopulmonary abnormality. Independent Historian Clinical information obtained from an independent historian. History obtained from or confirmed by: EMS External Record Review External record reviewed: Office record and Outpatient record Tests considered The following testing was considered but not selected: CT angio chest Chronic Conditions Patient?s care impacted by: Other (Leukemia) Social Determinants Patient?s care significantly limited by Social Determinants of Health including: Alcoholism and drug addiction in family and Problems related to primary support group Critical Care Time Critical Care Time Critical Care Time: Yes Total Critical Care Time: 32 Attestation: Time is exclusive of separately billable procedures. Time includes: direct patient care, patient reassessment, coordination of patient care, interpretation of data (laboratory data, pulse oximetry, arterial blood gases and chest xrays), review of patient's medical records, medical consultation and documentation of patient care. Procedures excluded from critical care time: central intravenous line placement and electrocardiography. Discharge Plan Discharge Clinical Impression: Nausea & vomiting, Epigastric abdominal pain, Brianna-Zuniga tear Patient Disposition: Home, Self-Care Additional Instructions: Evaluated with nausea and vomiting noting some blood in the vomit, as discussed when you have vomiting it is not unusual to have a small tear of the esophagus causing bleeding, you have not had any blood loss, dehydration other blood work abnormalities based on your workup today, you had EKG and chest x-ray all of which has been reassuring you have had no fevers, your vital signs has been stable, I spoke to you regarding substance use, follow up with Oncology, and I sent information regarding your ER visit to Dr. Mtz Can use Zofran 4 mg every 6-8 hours as needed for nausea and vomiting stay well hydrated Prescriptions: New ondansetron HCl 4 mg tablet 4 mg PO Q8H PRN (Reason: nausea and vomiting) Qty: 10 0RF Referrals: Cari Mtz MD [Physician, Hematology & Oncology] - 1 week Clinical Impression: Brianna-Zuniga tear; Epigastric abdominal pain; Nausea & vomiting Interventions: ED Discharge Assessment Last Done: 03/15/25 09:32 Discharge Date/Time: 03/15/25 09:32 Print Language: Panamanian
[2025-03-15 06:43] VITALS: BP 125/76; PULSE 102; RESP 20; TEMP 36.9; O2SAT 96
[2025-03-15 06:52] VITALS: BP 125/76; PULSE 100; RESP 20; TEMP 36.9; O2SAT 98; BMI 33.3
[2025-03-15 07:20] LABS: Hematocrit 32.5 % (37.0-47.0); Hemoglobin 11.0 g/dl (12.0-16.0); Imm Gran Abs Auto 0.01 X10*3/uL (0.00-0.03); Imm Gran Pct Auto 0.1 % (0.0-0.4); Lymphocytes Absolute Auto 2.6 X10*3/uL (1.2-4.9); MANUAL DIFF FLAG NO; Mean Corpuscular HGB Conc 33.8 g/dl (31.0-35.0); Mean Corpuscular Hemoglobin 30.5 pg (27.0-33.0); Mean Corpuscular Volume 90.0 fL (80.0-98.0); NRBC Abs Auto 0.000 X10*3/uL (0.0-0.012); NRBC Pct Auto 0.0 /100WBC (0.0-0.2); Platelet Count 308 X10*3/uL (160-400); Red Blood Count 3.61 X10*6/uL (4.20-5.50); White Blood Count 7.3 X10*3/uL (4.8-10.8)
[2025-03-15] MEDS: diazePAM 10 MG/2 ML CARTRIDGE 2.5 MG IVPUSH (07:37)
[2025-03-15 07:57] LABS: Alanine Aminotransferase 26 U/L (0-31); Albumin Level 4.1 g/dL (3.5-5.0); Alkaline Phosphatase 91 U/L (39-117); Anion Gap 10 (12-20); Aspartate Amino Transferase 33 U/L (5-31); Blood Urea Nitrogen 10 mg/dL (9-16); Calcium 8.6 mg/dL (8.4-10.2); Carbon Dioxide 23 mmol/L (22-29); Chloride 110 mmol/L (96-108); Creatinine Clr Calc Pharmacy 138.5; Estimated Glomerular Filt Rate > 60; Magnesium 2.3 mg/dL (1.6-2.6); Potassium 3.9 mmol/L (3.3-5.1); Sodium 139 mmol/L (135-145); Total Protein 7.1 g/dL (6.5-8.0)
--- NOTE | 2025-03-15 08:46 | PC.NURSE ---
Power Port to Right chest accessed, port confirmed by xray.
[2025-03-15 09:05] LABS: Resp Syncy Virus RNA Qual PCR NEGATIVE (Negative); SARS COV2 PCR INHOUSE NEGATIVE (Negative)
[2025-03-15 09:32] VITALS: BP 125/76; PULSE 100; RESP 20; TEMP 36.9; O2SAT 98
== END 2025-03-15 09:32 | disposition home or self-care (01) ==
PROVIDERS: Emergency Provider Emergency Medicine
DX: R11.2 Nausea with vomiting, unspecified (principal); R53.1 Weakness; K22.6 Gastro-esophageal laceration-hemorrhage syndrome; R06.02 Shortness of breath; R10.13 Epigastric pain; F12.90 Cannabis use, unspecified, uncomplicated; F17.210 Nicotine dependence, cigarettes, uncomplicated; Z03.818 Encounter for observation for suspected exposure to other biological agents ruled out
CPT/HCPCS: 36415; 71045; 80053; 80307; 83605; 83735; 84702; 85025; 87040; 87637; 93005; 96361; 96374; 96375; 99284; J1308; J2405; J3360

== ENCOUNTER → 2025-03-15 06:38 | Outpatient (BNV) | payer MEDICAID, SELFPAY | PROVIDERS: Emergency Provider Emergency Medicine; Visit Provider Internal Medicine Cardiovascular Disease | DX: R06.02 Shortness of breath (principal) | CPT/HCPCS: 93010 ==

== ENCOUNTER → 2025-03-15 07:15 | Outpatient (BNV) | payer MEDICAID, SELFPAY | PROVIDERS: Emergency Provider Emergency Medicine; Visit Provider Radiology Diagnostic Radiology | DX: R07.9 Chest pain, unspecified (principal) | CPT/HCPCS: 71045 ==